=== PATIENT | male | born 1945 | race Caucasian/White ===

== ENCOUNTER 2016-06-01 14:20 | Inpatient (IN) | payer MEDICARE, MEDICAID ==
[~2016-06-01] VITALS: Ht 175.3 cm; Wt 80.1 kg
--- NOTE | 2016-06-01 14:45 | NUR ---
INTAKE WATER GIVEN TO PT. TO DRINK.
[2016-06-01] MEDS ORDERED: No current meds (14:47)
--- NOTE | 2016-06-01 14:49 | ERPDOC ---
Departure Disposition Decision Date: Jun 01, 2016 Disposition Decision Time: 19:00 (GONZALEZ MARINELLI APRN) Disposition: [address] [facility] Impression Impression (GONZALEZ MARINELLI APRN) Impression: Primary Impression: Dementia Dementia type: unspecified type Dementia behavioral disturbance: without behavioral disturbance Qualified Codes: F03.90 - Unspecified dementia without behavioral disturbance Severity: Moderate (GONZALEZ MARINELLI APRN) Condition: Stable Seen By: Mid-level only (GONZALEZ MARINELLI APRN) Problems/Meds/Labs Reviewed?: Yes Medications reviewed and manag: Yes (GONZALEZ MARINELLI APRN) Follow up care ordered?: Yes Mental Status: Alert (GONZALEZ MARINELLI APRN) Scripts Quetiapine Fumarate (Quetiapine Fumarate) 100 Mg Tablet 100 MG PO 08,13 for Agitation for 30 Days, #60 TAB Prov: BRYANT MATHEW MD 06/14/16 Quetiapine Fumarate (Seroquel) 200 Mg Tablet 200 MG PO HS for Agitation for 30 Days, #30 TAB Prov: BRYANT MATHEW MD 06/14/16 Lorazepam (Ativan) 1 Mg Tablet 1 MG PO HS for Insomnia for 30 Days, #30 TAB Prov: BRYANT MATHEW MD 06/14/16 Lisinopril/Hydrochlorothiazide (Lisinopril-Hctz 10-12.5 mg Tab) 1 Each Tablet 1 TAB PO DAILY, #30 TAB Prov: MADHAVI TOLLIVER DRY CHAIN WORKER 06/14/16 Tamsulosin HCl (Tamsulosin HCl) 0.4 Mg Cap.er.24h 0.4 MG PO HS, #30 CAP Prov: MADHAVI TOLLIVER APRN 06/14/16 HPI - Psychosocial General Chief Complaint: Psychiatric Problems Stated Complaint: PHYSC EVAL Time Seen by MD: 14:29 Source: patient Exam Limitations: no limitations (GONZALEZ MARINELLI APRN) Time Seen by MD: 11:01 (ОЛЬГА TADEO DO) HPI - Psychosocial Initial Comments He is brought to the ER today by [facility] officer and dropped off. The officer left as soon as he dropped him off and so we are unable to get a further history from him. Marbin has a history of dementia and has recently at some point been admitted to [facility] behavioral unit. He had been discharged and was supposed to have a hearing today for guardianship but he did not show up. He does have a brother in [place] who is his DPOA but Marbin does not always get along with him. Marbin is cooperative for the most part but does not answer all questions. He reports that he wants to get back to [place]. He does know he is in [place]. He does state that he slept in a place on a wooden bench the other night with his friend named Boaz. He states that they were trying to get out of the cold and the rain. Has slept on a rug that he has to keep warm. He has been in touch with Adult Protective Services who are trying to get him a guardianship here in [place] but he missed his hearing this morning at 10 am. The APS worker is concerned for his safety due to his trouble with memory. He had been discharged to a [place] when he left [facility] but stayed one night and then left. He has been taken to homeless shelters but does not stay. He does tell me he was in a basement one evening and they were putting people to bed in cots and would not allow him to do what he wanted so he left. He does deny any thoughts of wanting to harm himself or anyone else at this time. Occurred At: home Onset: Gradual Duration: other (unknown) Severity: moderate Associated Symptoms: DENIES: anxiety, impaired concentration, ingestion, injury , insomnia, suicidal ideation Hx of Similar Symptoms: Yes (NOLD,GONZALEZ N DRY CHAIN WORKER) Allergies: Coded Allergies: No Known Allergies (Unverified , 06/15/16) Past History Unable to Obtain PMH Due to: clinical condition, dementia (NOLD,GONZALEZ N DRY CHAIN WORKER) Past Medical History Psychological: dementia (NOLD,GONZALEZ N DRY CHAIN WORKER) Review of Systems Constitutional Constitutional: DENIES: appetite decrease, chills, dizziness, fatigue, fever, weakness (NOLD,GONZALEZ N DRY CHAIN WORKER) Eyes Vision: DENIES: blurring, double vision (NOLD,GONZALEZ N DRY CHAIN WORKER) ENMT Ears: DENIES: drainage, pain Sinuses: DENIES: congestion, rhinorrhea Mouth/Throat: DENIES: painful swallowing, scratchy throat, sore throat (NOLD, GONZALEZ N DRY CHAIN WORKER) Cardiovascular Cardiac: DENIES: chest pain, orthopnea Rhythm/Rate: DENIES: irregular beat, palpitations (NOLD,GONZALEZ N DRY CHAIN WORKER) Pulmonary Respiratory: DENIES: cough, dyspnea, sputum, tachypnea (NOLD,GONZALEZ N DRY CHAIN WORKER) GI Upper Abdomen: DENIES: nausea, pain, vomiting Lower Abdomen: DENIES: constipation, diarrhea, pain (NOLD,GONZALEZ N DRY CHAIN WORKER) Neurological General: DENIES: headache, numbness, tingling, weakness (NOLD,GONZALEZ N DRY CHAIN WORKER) Psychiatric Psychiatric: nervousness (NOLD,GONZALEZ N DRY CHAIN WORKER) Physical Exam General General Nourishment: well nourished, well developed, appears stated age, no acute distress, adult General Body Habitus: well groomed (NOLD,GONZALEZ N DRY CHAIN WORKER) Vitals and Pain Weight: Kilograms: Height (feet): Height (inches): Triage Pain Scale: (NOPAIGE,GONZALEZ N DRY CHAIN WORKER) RN VS reviewed by Provider: Yes (NOPAIGE,GONZALEZ N DRY CHAIN WORKER) Normal Exams: Head: Normocephalic w/o trauma Eyes: Pupils are PERRLA w/ EOMI, No scleral icterus, irritation, or foreign bodies noted ENMT: No facial trauma, nasal exudates, pharyngeal erythema, or exudates are noted Neck: Full range of motion, without adenopathy, JVD, bruits or thyromegaly Chest/Resp: Clear all bolanos, with good airflow, and symmetry bilaterally CV: Regular rate and rhythm, without murmur or gallop, Pulses 2+ all extremities, capillary refill, <2 seconds all ext., no pedal edema noted Abdomen: Bowel sounds positive, soft, non-tender, non-distended, no hepatosplenomegaly, masses or bruits noted Lymphatic: No lymphadenopathy, or lymphedema noted Integumentary: No rashes, hives, or bruising noted Neurologic: Patient is alert, and oriented, cranial nerves, motor/sensory/ cerebellar, exams w/o gross deficits, to observation Psychiatric: Patient exhibits, appropriate attention, emotion and affect (NOLD,GONZALEZ N DRY CHAIN WORKER) Differential Diagnoses Considering: Anxiety, Bipolar, Dementia, Depression, Hallucinations, Hypoglycemia, Alcohol Intoxication, Suicidal Ideation (NOLD,GONZALEZ N DRY CHAIN WORKER) Progress Results/Orders Orders Procedure Category Date Status Time Drug Screen LAB 06/01/16 Complete Urine-Test At [facility] 17:01 Cbc W/Auto LAB 06/01/16 Complete Diff-Reflex Manual Bmp - Basic Metabolic LAB 06/01/16 Complete Panel UA, LAB 06/01/16 Complete Dip&Micro(Complete) & 17:17 Tsh - Thyroid Stim LAB 06/01/16 Complete Hormone Cephalexin Capsule PHA 06/01/16 Complete (Keflex) 17:45 Urine Culture JAYA 06/01/16 Complete 17:53 Normal Saline (Normal PHA 06/01/16 Complete Saline Iv) 19:00 EKG EKG 06/01/16 Taken () Lab Results Laboratory Tests Test 06/01/16 17:17 06/01/16 17:28 06/01/16 18:56 Urine Collection Type Cleancatch-midstream Urine Color Yellow Urine Turbidity Cloudy Urine pH 6.0 Urine Specific Frederic 1.020 Urine Protein 2+ Urine Glucose (UA) Negative Urine Ketones Negative Urine Blood 3+ Urine Nitrite Positive Urine Bilirubin Negative Urine Urobilinogen 0.2EU/DL Urine Leukocyte Esterase 1+ Urine RBC 10-20/HPF Urine WBC 50-200/HPF Urine WBC Clumps Few Urine Squamous Epithelial Cells None seen Urine Bacteria 2+ Urine Culture Indicated Cult reflexed &setup Urine Opiates Screen NegativeNG/ML Urine Oxycodone Screen NegativeNG/ML Urine Methadone Screen NegativeNG/ML Urine Propoxyphene Screen NegativeNG/ML Urine Barbiturates Screen NegativeNG/ML Urine Tricyclic Antidepressants NegativeNG/ML Urine Phencyclidine Screen NegativeNG/ML Urine Amphetamines Screen NegativeNG/ML Urine Methamphetamines Screen NegativeNG/ML Urine Benzodiazepines Screen NegativeNG/ML Urine Cocaine Screen NegativeNG/ML Urine Cannabinoids Screen NegativeNG/ML White Blood Count 8.4T/MM3 Red Blood Count 4.62M/MM3 Hemoglobin 13.2GM/DL Hematocrit 40.5% Mean Corpuscular Volume 87.7UM3 Mean Corpuscular Hemoglobin 28.6UUG Mean Corpuscular Hemoglobin Concent 32.6GM/DL RDW Standard Deviation 44.9FL Platelet Count 212T/MM3 Mean Platelet Volume 9.0UM3 Immature Granulocyte % (Auto) 0.1% Neutrophils (%) (Auto) 65.1% Lymphocytes (%) (Auto) 25.4% Monocytes (%) (Auto) 7.4% Eosinophils (%) (Auto) 1.5% Basophils (%) (Auto) 0.5% Absolute Immature Granulocyte (auto 0.01T/MM3 Absolute Neutrophils (auto) 5.5T/MM3 Absolute Lymphocytes (auto) 2.1T/MM3 Absolute Monocytes (auto) 0.6T/MM3 Absolute Eosinophils (auto) 0.1T/MM3 Absolute Basophils (auto) 0.0T/MM3 Turbidity < 20 Sodium Level 143MEQ/L Potassium Level 4.3MEQ/L Chloride Level 104MEQ/L Carbon Dioxide Level 26MEQ/L Anion Gap 13MEQ/L Blood Urea Nitrogen 37.0MG/DL Creatinine 2.3MG/DL Glomerular Filtration Rate Calc 28 BUN/Creatinine Ratio 16RATIO Glucose Level 127MG/DL Hemoglobin A1c 5.6% Calculated Osmolality 286MOSM/KG Calcium Level 9.4MG/DL Icterus Index < 2 Folate 13.4NG/ML Thyroid Stimulating Hormone (TSH) 1.23MIU/L Chemistry Specimen Hemolysis < 15 Lab Scanned Report REFERENCE [id number] () Medications Current ED Medications Cephalexin HCl 500 mg 500 mg O ONCE PO Last administered on 06/01/16 17:46; Start 06/01/16 at 17:45; Stop 06/01/16 at 17:46; Status DC Sodium Chloride (Normal Saline IV) 1,000 ml @ 1,000 mls/hr Q1H ONCE IV ; Start 06/01/16 at 19:00; Stop 06/01/16 at 19:03; Status DC Haloperidol (Haldol) 0.5 mg Q6H PRN PO EXTREME AGITATION; Start 06/01/16 at 21: 40; Stop 06/15/16 at 10:10; Status DC Lorazepam (Ativan) 0.5 mg Q6H PRN PO EXTREME AGITATION Last administered on 08:47; Start 06/01/16 at 21:40; Stop 06/15/16 at 10:10; Status DC Lorazepam (Ativan) 0.5 mg Q6H PRN IM EXTREME AGITATION Last administered on 06/03 09:49; Start 06/01/16 at 21:40; Stop 06/15/16 at 10:10; Status DC Haloperidol Lactate (Haldol 5 Mg/ml Inj) 0.5 mg Q6H PRN IM EXTREME AGITATION Last administered on 06/03/16 09:49; Start 06/01/16 at 21:40; Stop 06/15/16 at 10 :10; Status DC Lorazepam (Ativan Intensol) 0.5 mg Q6H PRN SL Last administered on 06/02/16 20 :02; Start 06/01/16 at 21:40; Stop 06/15/16 at 10:10; Status DC Haloperidol (Haldol Liquid) 0.5 mg Q6H PRN PO Last administered on 06/08/16 20:10; Start 06/01/16 at 21:40; Stop 06/15/16 at 10:10; Status DC () Progress Progress 1530- Camille BRUSHER HAND and [employer] screener are in room with patient for evaluation of acceptance to [facility] unit. 1809- BUN-37 and creatinine is 2.3. No old labs to compare baseline creatinine to. U/A is nitrite positive with 1+ LE, 50-200 WBC and 2+ bacteria. Spoke with [facility] RN about elevated creatinine. She did speak with the Psychiatrist. He would prefer to have patient admitted to medical unit for fluids to monitor the creatinine and hydrate patient. Spoke with Dr Roa. He was able to obtain via [facility] lab results and his creatinine on 04/14/16 was 2.4. Value in December of 2015 was 2.23. BUN runs between 40-56 from old labs. No need to admit medically for clearance. [facility] will take the admission at this time. (GONZALEZ MARINELLI APRN) GONZALEZ MARINELLI APRN Jun 01, 2016 14:49 JUNE,ОЛЬГА Drake DO Jun 18, 2016 18:06
--- NOTE | 2016-06-01 15:00 | NUR ---
COLORER HIDES AND SKINS DELORES THE COLORER HIDES AND SKINS IN THE ROOM WITH PATIENT.
--- NOTE | 2016-06-01 15:20 | NUR ---
SOCIAL WORK LOW, CONTENT ADMINISTRATOR IN TO SEE PATIENT.
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
--- NOTE | 2016-06-01 17:22 | NUR ---
POLICE ARRIVED PATIENT STANDING IN ROOM, YELLING, COMING AT THIS NURSE. POLICE ARRIVED AND FORCED PATIENT BACK TO BED.
[2016-06-01 17:35] LABS: BLOOD, URINE 3+ (NEGATIVE); COLOR,URINE YELLOW (YELLOW); LEUKOCYTE ESTERASE ,URINE 1+ (NEGATIVE); NITRITE,URINE POSITIVE (NEGATIVE); UROBILINOGEN,URINE 0.2 EU/DL (NORMAL)
[2016-06-01 17:36] LABS: BASOPHILS % (AUTO) 0.5 % (0-2); EOSINOPHILS # (AUTO) 0.1 T/MM3 (0-0.5); EOSINOPHILS % (AUTO) 1.5 % (0-4); HCT - HEMATOCRIT 40.5 % (41-53); HGB - HEMOGLOBIN 13.2 GM/DL (13.5-17.5); IMMATURE GRANULOCYTE # (AUTO) 0.01 T/MM3 (0.00-0.03); IMMATURE GRANULOCYTE % (AUTO) 0.1 % (0.0-0.5); LYMPHOCYTES # (AUTO) 2.1 T/MM3 (1-4.8); LYMPHOCYTES % (AUTO) 25.4 % (23-45); MEAN CORPUSCULAR HGB 28.6 UUG (26-34); MEAN CORPUSCULAR HGB CONC(MCHC 32.6 GM/DL (31-37); MEAN CORPUSCULAR VOLUME 87.7 UM3 (80-100); MONOCYTES # (AUTO) 0.6 T/MM3 (0-0.8); MONOCYTES % (AUTO) 7.4 % (0-9.0); NEUTROPHILS #(AUTO)-ABSOLUTE 5.5 T/MM3 (1.8-7.7); NEUTROPHILS % (AUTO) 65.1 % (33-66); RED BLOOD COUNT 4.62 M/MM3 (4.50-5.90); WBC - WHITE BLOOD COUNT 8.4 T/MM3 (4.5-11.0)
[2016-06-01 17:42] LABS: ANION GAP 13 MEQ/L (5-15); BUN/CREATININE RATIO 16 RATIO (6-26); CALCIUM 9.4 MG/DL (8.4-10.2); CHLORIDE 104 MEQ/L (98-107); CO2 - CARBON DIOXIDE 26 MEQ/L (22-30); CREATININE 2.3 MG/DL (0.8-1.5); GLOMERULAR FILTRATION RATE 28; GLUCOSE 127 MG/DL (75-110); POTASSIUM 4.3 MEQ/L (3.6-5); SODIUM 143 MEQ/L (134-144)
[2016-06-01] MEDS ORDERED: CEPHALEXIN 500 MG CAPSULE PO ONE (17:45)
[2016-06-01 17:51] LABS: WBC,URINE 50-200 /HPF (0-5)
[2016-06-01 17:52] LABS: SQUAMOUS EPITHELIAL CELL,UR NONE SEEN; WBC CLUMPS,URINE FEW
[2016-06-01 17:53] LABS: BACTERIA,URINE 2+ (NEGATIVE)
[2016-06-01 17:54] LABS: AMPHETAMINE SCREEN,URINE NEGATIVE; BARBITURATE SCREEN,URINE NEGATIVE; BENZODIAZEPINES SCREEN,URINE NEGATIVE; CANNABINOID SCREEN,URINE NEGATIVE; COCAINE SCREEN,URINE NEGATIVE; METHADONE SCREEN, URINE NEGATIVE; METHAMPHETAMINE SCREEN, URINE NEGATIVE; OPIATE SCREEN,URINE NEGATIVE; PHENCYCLIDINE SCREEN,URINE NEGATIVE; TRICYCLIC ANTIDEPRESSANT,URINE NEGATIVE
--- NOTE | 2016-06-01 18:38 | NUR ---
STATUS UPDATE AWAITING DECISION FROM PSYCH AND HOSPITALIST TO WHERE PATIENT WILL BE ADMITTED.
[2016-06-01] MEDS ORDERED: NORMAL SALINE 1,000 ML IV ONE (19:00)
--- NOTE | 2016-06-01 19:59 | NUR ---
STATUS UPDATE PATIENT SITTING QUIETLY ON BED WATCHING TV. NO CONCERNS VOICED.
--- NOTE | 2016-06-01 21:29 | NUR ---
REPORT REPORT CALLED TO MELISSA HARDY, [facility].
--- NOTE | 2016-06-01 21:30 | NUR ---
CLOTHING PT'S CLOTHING REMOVED AND PLACED IN PERSONAL BELONGING BAGS.
[2016-06-01] MEDS ORDERED: HALOPERIDOL 0.5 MG TABLET PO PRN (21:40)
[2016-06-01] MEDS ORDERED: LORAZEPAM 2 MG/ML INJECTION IM PRN (21:40)
[2016-06-01] MEDS ORDERED: HALOPERIDOL 5 MG/ML INJECTION IM PRN (21:40)
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
--- NOTE | 2016-06-01 21:45 | NUR ---
DEPART ED/ADMIT TO [facility] PT IS TAKEN TO [facility] IN [place] UNDERWEAR AND SOCKS, PT REUFSED TO PLACED GOWN ON. PT HAS HIS WALLET IN HIS UNDERWEAR ALONG WITH AN EXTRA T-SHIRT. PT HAS NO OTHER PERSONAL BELONGINGS ON HIM AND IS PATTED DOWN/SECURE. PT IS TAKEN PER WHEELCHAIR TO [facility] ALONG WITH WAX BALL KNOCK OUT WORKER FOR AN ESCORT. PT TAKES 3 PERSONAL BELONGING BAGS WHICH INCLUDED 2 PAIR OF JEANS WITH LEATHER TYPE BELTS REMOVED BY RN, 2 SHIRTS, SHOES, A DENTURE CUP WITH LOOSE CHANGE. PT ALSO HAS REUSABLE GROCERY TYPE BAG THAT DAY SHIFT HAD PLACED IN THE GARAGE/FILLED WITH PT BELONGINGS. ALL 4 BELONGING BAGS GIVEN TO [facility] STAFF ON ADMISSION OF PT. PT SHOWS NO SIGNS OF DISTRESS WHEN RELEASED TO STAFF AND HAS NO PHYSICAL OR MENTAL COMPLAINTS AT THIS TIME.
--- OUTSIDE RECORDS SUMMARY | 2016-06-01 22:21 | XMS REPORT | Continuity of Care Document ---
Author Author [facility] Address Unknown Phone Unavailable Allergies Medications Problems Date Dx Coded Attending Type Code Diagnosis Diagnosed By 04/15/2016 F F02.81 Dementia in other diseases classified elsewhere with behavioral disturbance Nuris Posey 04/15/2016 F F20.9 Schizophrenia, unspecified Alexandra Bass 04/15/2016 F Z59.0 Homelessness Alexandra Bass 04/22/2016 F F02.81 Dementia in other diseases classified elsewhere with behavioral disturbance Alexandra Bass 04/22/2016 F F20.9 Schizophrenia, unspecified Nuris Posey 04/22/2016 F Z59.0 Homelessness Nuris Posey 04/22/2016 F Z59.5 Extreme poverty Nuris Posey Procedures Code [place] [id number] PSYCHIATRIC SERVICE/THERAPY Nuris Posey 04/15/2016 Results Encounters ACCT No. Visit Date/Time Discharge Status Pt. Type Provider Facility Loc./Unit Complaint [id number] 04/15/2016 10:00:00 04/15/2016 23:59:59 CLS Outpatient
[2016-06-01] MEDS: LORAZEPAM INTENSOL 1mg/0.5ml ORAL SOLUTION SL PRN (22:23)
[2016-06-01] MEDS: HALOPERIDOL 1 MG/0.5 ML ORAL LIQUID PO PRN (22:23)
--- NOTE | 2016-06-01 22:25 | NUR ---
PRN Pt was increasingly anxious and agitated, resistive with cares, continuously accusing staff of stealing his belongings, demanding to have them back in his room. Explained the procedure of the unit to pt but he was not interested in listening. Pt was restless, not able to sit still, saying whoever stole from him, to go shoot them. "Shoot them if they are stealing from me!". Attempts to redirect by speaking calmly and face to face with pt difficult. Pt very labile. PRN Ativan/Haldol 0.5 Intensol/liquid given in apple juice. Pt drank all of the juice. Will continue to monitor
[2016-06-01] MEDS ORDERED: PRN ORDERS MC (22:45)
[2016-06-01 22:54] VITALS: BP 150/100; PULSE 77; RESP 18; TEMP 99.1; O2SAT 95
[2016-06-01 23:03] VITALS: PULSE 77; RESP 18
--- NOTE | 2016-06-02 00:05 | NUR ---
Bed time Pt laid down in his bed and was asleep by midnight. Bed rails up x 2 and alarm on. Will continue to monitor
[2016-06-02 00:09] VITALS: Ht 175.3 cm; Wt 80.1 kg
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
--- NOTE | 2016-06-02 04:49 | NUR ---
Chart Check 24 hour chart check completed
--- NOTE | 2016-06-02 05:59 | NUR ---
Summary Pt has been sleeping since midnight and has not displayed any further signs of anxiety, agitation or restlessness since receiving PRN at 2225. Pt received Ativan intensol 0.5mg and Haldol liquid 0.5mg. See PRN notes for details. Pt is alert to person. Up SBA and is able to ambulate on own without the use of devices. No further issues since previous notes. Currently sleeping. Bed rails up x 2 and alarm on. Will continue to monitor
--- NOTE | 2016-06-02 07:57 | NUR ---
SMOKING HISTORY Pt reports that he has not smoked in 20-30 years. RT consult not needed.
[2016-06-02 08:00] VITALS: BP 125/66; PULSE 76; RESP 16; TEMP 98.8; O2SAT 95
--- NOTE | 2016-06-02 10:00 | NUR ---
SAND CONDITIONER--DCF contact Per Hanna, DCF worker, arrived on unit to serve pt. his notice about upcoming probate hearing in [facility] regarding guardianship. Per explained about nature of the hearing and pt. seemed to agree with the concept of having someone to help him manage some of his affairs.
--- NOTE | 2016-06-02 10:25 | NUR ---
Pt awoke this morning at 1015 this morning
[2016-06-02 10:26] VITALS: PULSE 68; RESP 12; O2SAT 98
[2016-06-02] MEDS: HALOPERIDOL 1 MG/0.5 ML ORAL LIQUID PO PRN ×2 (10:34→20:02)
[2016-06-02] MEDS: LORAZEPAM INTENSOL 1mg/0.5ml ORAL SOLUTION SL PRN ×2 (10:34→20:02)
--- NOTE | 2016-06-02 11:09 | NUR ---
PRN Pt received PRN Haldol 0.5mg and Ativan 0.5mg liquid @ 1035, for agitation. Pt had a visitor in to speak to him about guardianship. Pt tolerated well and was pleasant during the transaction.
--- NOTE | 2016-06-02 11:47 | HPPDOC ---
MADHAVI TOLLIVER MILLING MACHINE SET UP OPERATOR 06/02/16 0816: HPI - Adult Date DATE: 06/02/16 TIME: 08:13 General Chief Complaint: Behavioral issues History of Present Illness Marbin Carey is a 71 y/o male admitted to [facility] on 06/01/16 after a [employer] Hearing Office dropped him off at the [facility]. He was recently hospitalized at [facility] for psychiatric problems from 12/25/15-05/07/16. Discharge dx included: CKD stage 3 (baseline cr 2-2.3, up to 2.6), hx bilatral hydronephrosis that improved post TURP during hospitalization; uncontrolled HTN, Rx lisinopril/HCTZ - Had been on Norvasc but this was DC'd d/t pedal edema - Clonidine PRN. 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 He was dc'd to a [place] but the patient only stayed there briefly. He has had problems functioning and has had impaired judgment, disorientation and mood swings. He's been skipping meals. He's only oriented to person. He recently has been homeless, going from [place] to homeless correction, to other places. The patient is a poor historian, and unable to recount any PMH or provide reliable HPI. Past Medical History Past Medical History Patient's Medical History: (1) Schizophrenia (2) Dementia (3) HTN (hypertension) (4) CKD (chronic kidney disease), stage III Permanent Comment: From 12/2015 through 03/2016 his creatinine has ranged from 2 -2.5 Last Edited By: Madhavi Tolliver on Jun 02, 2016 08:29 (5) Urinary incontinence (6) Normocytic anemia (7) BPH (benign prostatic hypertrophy) Surgical History Patient's Surgical History: Cystoscopy with Transurethral prostatectomy 12/30/15 (Dr. Lee) Skin graft Left arm (1967) Dental extractions Current Medications Home Meds Reported Medications [No current meds] No Conflict Check 06/01/16 Allergies: Coded Allergies: No Known Allergies (Unverified , 06/01/16) Family History Family History: Unobtainable Social History Smoking Status: Former smoker (states he quit 30 years ago) Substance Use Type: former substance user (per sister - unknown type) Alcohol Intake: occasionally Housing: homeless (hx of homelessness) Current Occupational Status: unemployed Advance Directives: Yes DPOA for Healthcare Only (Eduardo Murcia Broth in law/DPOA) Review of Systems Unable to Obtain ROS Due to: dementia Comments Only positive ROS is that he "hasn't been well" but unable to explain. Denied any specific symptoms, as documented below. Constitutional: DENIES: dizziness, fever Eyes Vision: DENIES: vision changes ENMT Sinuses: NOT FOUND: congestion, rhinorrhea Mouth/Throat: DENIES: sore throat Cardiovascular DENIES: chest pain Vascular: DENIES: pedal edema Pulmonary Respiratory: DENIES: cough GI Upper Abdomen: DENIES: pain, vomiting Lower Abdomen: DENIES: diarrhea General: DENIES: dysuria Musculoskeletal Lumbar: DENIES: pain Integumentary Skin: rash (per notes from [facility] - had a rash in Nov that was treated with steroid cream) Neurological General: memory disturbances, DENIES: syncope, weakness Psychiatric Psychiatric: memory impairment, see HPI Hematologic/Lymphatic DENIES: anemia Allergic/Immunological DENIES: frequent infections All Other Systems All Other Systems: Reviewed (remainder of 10-point ROS Neg.) Physical Exam General General Nourishment: well nourished, well developed General Body Habitus: disheveled Vital Signs Vital Signs Date Time Temp Pulse Resp B/P Pulse Ox O2 Delivery O2 Flow Rate FiO2 06/01/16 23:03 77 18 06/01/16 22:54 99.1 150/100 95 Room Air Height (Feet): 5 Height (Inches): 9.00 Eyes Brief: FOUND: PERRL, NOT FOUND: scleral icterus ENMT Brief: FOUND: mucosa moist, NOT FOUND: normal dentition (edentulous), pharnyx erythema Neck Brief: NOT FOUND: adenopathy, nuchal rigidity Respiratory Auscultation: FOUND: normal, NOT FOUND: rales, rhonchi, wheezes Cardiovascular Auscultation: FOUND: S1, S2, regular Peripheral Pulses: 2+: Dorasalis Pedis (L), Dorsalis Pedis (R), Posterior Tibial (L), Posterior Tibial (R), Radial (L), Radial (R) Edema: 0: Anasarca, Arm (L), Arm (R), Face, Leg (L), Leg (R) Abdomen Inspection: NOT FOUND: distention Palpation: FOUND: soft, NOT FOUND: McBurney's point tender, Arzate's sign, involuntary guarding, rebound, tender, voluntary guarding Auscultation: FOUND: normo active Lymphatic (brief) Lymphatic Brief: NOT FOUND: adenopathy Integumentary (brief) Integumentary Brief: FOUND: dry, pink, warm Integumentary General: FOUND: dry, warm Color: FOUND: pink Neurologic (brief) Neurological Brief: FOUND: cranial 2-12 intact (grossly but has difficulty following commands at times), motor (GRECO) Neurologic GCS Eye Opening: (4)Spontaneous GCS Verbal: (4)Confused GCS Motor: (6)Obeys Commands RN Documented GCS Total: 14 Psychiatric (brief) FOUND: alert, attentive, normal affect, oriented Laboratory Laboratory Tests Test 06/01/16 17:17 06/01/16 17:28 06/01/16 18:56 Urine Collection Type Cleancatch-midstream Urine Color Yellow Urine Turbidity Cloudy Urine pH 6.0 Urine Specific [place] 1.020 Urine Protein 2+ Urine Glucose (UA) Negative Urine Ketones Negative Urine Blood 3+ Urine Nitrite Positive Urine Bilirubin Negative Urine Urobilinogen 0.2EU/DL Urine Leukocyte Esterase 1+ Urine RBC 10-20/HPF Urine WBC 50-200/HPF Urine WBC Clumps Few Urine Squamous Epithelial Cells None seen Urine Bacteria 2+ Urine Culture Indicated Cult reflexed &setup Urine Opiates Screen NegativeNG/ML Urine Oxycodone Screen NegativeNG/ML Urine Methadone Screen NegativeNG/ML Urine Propoxyphene Screen NegativeNG/ML Urine Barbiturates Screen NegativeNG/ML Urine Tricyclic Antidepressants NegativeNG/ML Urine Phencyclidine Screen NegativeNG/ML Urine Amphetamines Screen NegativeNG/ML Urine Methamphetamines Screen NegativeNG/ML Urine Benzodiazepines Screen NegativeNG/ML Urine Cocaine Screen NegativeNG/ML Urine Cannabinoids Screen NegativeNG/ML White Blood Count 8.4T/MM3 Red Blood Count 4.62M/MM3 Hemoglobin 13.2GM/DL Hematocrit 40.5% Mean Corpuscular Volume 87.7UM3 Mean Corpuscular Hemoglobin 28.6UUG Mean Corpuscular Hemoglobin Concent 32.6GM/DL RDW Standard Deviation 44.9FL Platelet Count 212T/MM3 Mean Platelet Volume 9.0UM3 Immature Granulocyte % (Auto) 0.1% Neutrophils (%) (Auto) 65.1% Lymphocytes (%) (Auto) 25.4% Monocytes (%) (Auto) 7.4% Eosinophils (%) (Auto) 1.5% Basophils (%) (Auto) 0.5% Absolute Immature Granulocyte (auto 0.01T/MM3 Absolute Neutrophils (auto) 5.5T/MM3 Absolute Lymphocytes (auto) 2.1T/MM3 Absolute Monocytes (auto) 0.6T/MM3 Absolute Eosinophils (auto) 0.1T/MM3 Absolute Basophils (auto) 0.0T/MM3 Turbidity < 20 Sodium Level 143MEQ/L Potassium Level 4.3MEQ/L Chloride Level 104MEQ/L Carbon Dioxide Level 26MEQ/L Anion Gap 13MEQ/L Blood Urea Nitrogen 37.0MG/DL Creatinine 2.3MG/DL Glomerular Filtration Rate Calc 28 BUN/Creatinine Ratio 16RATIO Glucose Level 127MG/DL Hemoglobin A1c 5.6% Calculated Osmolality 286MOSM/KG Calcium Level 9.4MG/DL Icterus Index < 2 Folate 13.4NG/ML Thyroid Stimulating Hormone (TSH) 1.23MIU/L Chemistry Specimen Hemolysis < 15 Lab Scanned Report REFERENCE [id number] Assessment & Plan Problems: (1) UTI (urinary tract infection) Status: Acute (2) Dementia Status: Chronic Qualifiers: Dementia type: unspecified type Dementia behavioral disturbance: without behavioral disturbance Qualified Codes: F03.90 - Unspecified dementia without behavioral disturbance (3) Schizophrenia (4) HTN (hypertension) Status: Chronic (5) Urinary incontinence Status: Chronic Qualifiers: Urinary Incontinence type: unspecified incontinence Qualified Codes: R32 - Unspecified urinary incontinence (6) CKD (chronic kidney disease), stage III Status: Chronic (7) Normocytic anemia Status: Chronic (8) BPH (benign prostatic hypertrophy) Status: Chronic Plan/Intensity of Service Agree with admission to [facility]. UTI - Keflex started. Early growth noted on culture. [facility] records reviewed Cr ranged from 2-2.6 while hospitalized. He underwent TURP for b/l hydronephrosis. DC'd with these medications: Lisinopril/HCTZ 20/25, Flomax, Seroquel 50 mg BID and 100 mg HS, Aricept 10 mg HS Resume Lisinopril/HCTZ, Flomax. Consider Clonidine PRN or BB if BP does not show good improvement. CKD - recheck BMP in am. Schizophrenia/dementia - per attending. Code Status Full Code, unverified Hospital Course Summary Disclaimer The hospital course summary below is not to be considered part of the above Progress Note. Hospital Course Summary 06/02/16 Agree with admission to [facility]. UTI - Keflex started. Early growth noted on culture. [facility] records reviewed Cr ranged from 2-2.6 while hospitalized. He underwent TURP for b/l hydronephrosis. DC'd with these medications: Lisinopril/HCTZ 20/25, Flomax, Seroquel 50 mg BID and 100 mg HS, Aricept 10 mg HS Resume Lisinopril/HCTZ, Flomax. Consider Clonidine PRN or BB if BP does not show good improvement. CKD - recheck BMP in am. Schizophrenia/dementia - per attending. ALEX BARDALES MD 06/02/16 1424: Past Medical History Current Medications Home Meds Reported Medications [No current meds] No Conflict Check 06/01/16 Allergies: Coded Allergies: No Known Allergies (Unverified , 06/01/16) Assessment & Plan Problems: (1) UTI (urinary tract infection) Status: Acute (2) Dementia Status: Chronic Qualifiers: Dementia type: unspecified type Dementia behavioral disturbance: without behavioral disturbance Qualified Codes: F03.90 - Unspecified dementia without behavioral disturbance (3) Schizophrenia (4) HTN (hypertension) Status: Chronic (5) Urinary incontinence Status: Chronic Qualifiers: Urinary Incontinence type: unspecified incontinence Qualified Codes: R32 - Unspecified urinary incontinence (6) CKD (chronic kidney disease), stage III Status: Chronic (7) Normocytic anemia Status: Chronic (8) BPH (benign prostatic hypertrophy) Status: Chronic Plan/Intensity of Service Have independently interviewed and examined pt. Chart reviewed. Case discussed with my MILLING MACHINE SET UP OPERATOR. Above care plan developed with my supervision; agree with above. Brought to ED last night by [facility] Officer. Pt has Hx of Schizophrenia and dementia - recently had [facility]. Was discharged to [place] for care, but apparently left. Reported that he has been in and out of homeless shelters. Not happy with the officer for bringing him here. Denies any specific medical problems. Breathing well without SOA, cough or congestion. No chest pain. No nausea or ab pain. Urinating well. Lab has been reviewed from outlying facilities - has CKD, creatinine at baseline. Lungs: clear, no distress CV: regular AB: soft nt/nd + BS MSE: awake alert Plan; Agree with admission to [facility] for further psychiatric treatment. Continue home medications. Cephalexin started for UTI - check on C/S. Encourage oral intake of fluids due to CKD. Monitor blood pressure. Provide safe supportive environment. Psychiatry to manage and adjust his psychoactive medications. Medically stable for [facility] floor activities. MADHAVI TOLLIVER APRN Jun 02, 2016 08:16 ALEX BARDALES MD Jun 02, 2016 14:24
--- NOTE | 2016-06-02 12:15 | NUR ---
PRN Follow up Pt has been calm and cooperative since receiving his PRN medications. Pt ate lunch and sat and watched the ducks and geese outside on the [place] while conversing with staff and other patients.
[2016-06-02 16:32] VITALS: BP 160/94; PULSE 79; RESP 16; TEMP 99; O2SAT 96
--- NOTE | 2016-06-02 16:50 | NUR ---
Slums Examination Pt. scored a 2 and states "this is bullshit" and "does this make your job happy?" Audit Screen Pt. scored a 2. Indicates a couple drinks "two weeks ago" but states "I don't drink."
--- NOTE | 2016-06-02 17:13 | NUR ---
Summary Pt was cooperative with assessment, and medications. Pt prefers to do as much on his own as possible. He Has not had any signs of aggression this shift and has been out to eat breakfast and lunch. At lunch he stayed out in the dining room to watch the birds on the [place] and stated how much he enjoyed the outdoors and nature. Pt received PRN ativan and Haldol earlier in the shift (see note) and is currently in bed sleeping with side rails up x2 and bed alarm activated.
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
[2016-06-02] MEDS: CEPHALEXIN 500 MG CAPSULE PO SCH (17:26)
--- NOTE | 2016-06-02 18:03 | NUR ---
Marbin ate 100% of his dinner and is currently in his room looking at his clothes. He took his antibiotic at dinner without problems.
[2016-06-02 20:00] VITALS: BP 152/75; PULSE 72; RESP 18; TEMP 98.9; O2SAT 96
--- NOTE | 2016-06-02 20:02 | NUR ---
prn given Pt is alert and oriented x1, pt demanding his belongings and to leave. Pt is upset that his suspender is locked up. Pt yelling at staff, pacing the dayroom, pt is tense and tone of voice is aggressive, pt did calm a little when a different staff member approached him, pt agreed to sit down in the recliner and have a snack of apple juice and applesauce, pt given 0.5mg Ativan and 0.5mg Haldol liquid in his apple juice, pt drank 100% of apple juice, pt is currently talking with another patient in the dayroom with staff present. will monitor pt.
[2016-06-02] MEDS: QUETIAPINE 25 MG TABLET PO SCH (20:21)
[2016-06-02] MEDS: TAMSULOSIN 0.4 MG CAPSULE PO SCH (20:21)
--- NOTE | 2016-06-02 21:02 | NUR ---
prn update Pt is currently in the dayroom, pt remains tense, but is sitting watching tv and smiled at staff when approached. Pt took his hs meds at 2100, pt then wants to know where his belongings are at and wants to go home. Pt reoriented that he needs to stay here for the night, that he has a UTI and needs to take antibiotics. Pt is in dayroom with 2 pairs of pants on, two shirts on, two hats on. will monitor pt.
--- NOTE | 2016-06-02 21:14 | GENHPPDOC ---
[facility] 06/02/16 Time of Service: 16:30 Start Time: 16:30 Stop Time: 17:20 >50% of this visit spent in counseling/coordination care. Chief Complaint: Disorganized behavior and confusion History of Present Illness Patient is a 71- year-old, male, with history of Schizophrenia and Major Neurocognitive disorder who was brought to the ER by the police after he was found wandering in [place]. He was noted to be confused and has disorganized speech with tangential thought process. While in the ER, he reportedly refused blood draw and the police had to be called before he agreed to it. He was seen to be alert, disoriented to place and time. He has several layers of clothing and looks dishevelled. Patient was seen to be upset about the police for bringing him to the hospital. He looks tensed and verbally aggressive. Patient was discharged from [facility] where he was for about 5 months between December 2015 to April 2016. Patient was said to have been discharged to [facility], but he was not there for a long time. He has been homeless for while and he become irritated when attempting to gather information from him. On admission to the unit last night he was given Haloperidol 0.5mg and Lorazepam 0.5mg and he also received the same medication earlier today. Patient's DPOA currently resides in [place] and he has he has guardianship hearing on June 15 2016. Reviewed patient's medication from his admission in [facility] which showed that he was on Lisinopril /HCTZ 20/25mg 1 daily, Seroquel 100mg 1 q bedtime, Seroquel 50mg 1 BID and Tamsulosin 0.4mg daily. He also had a head CT scan (12/25/15)during that hospitalization which showed mild atrophy of the brain with no acute abnormality. Patient's CBC was wnl, but BMP showed a BUN of 37 and Creatinine possibly due to history CKD. UA was positive for nitrite, bacteria and WBC. He has been stated on Keflex 500mg TID. Substance: There is report of patient's past history alcohol use disorder Past Psych: was in [facility] for about 5 months in 2015 to early 2016. Past Medical Hx: CKD, HTN, BPH Social Hx: He is homeless. Family: unable to obtain due to patient's confusion. Patient's strength : He continues to be physically able to ambulate without need for assistance. Psychosis: delusions, paranoia Dementia: memory impairment, poor executive function. Past Medical History Past Medical History Patient's Medical History: (1) Schizophrenia (2) Dementia (3) HTN (hypertension) (4) CKD (chronic kidney disease), stage III Permanent Comment: From 12/2015 through 03/2016 his creatinine has ranged from 2 -2.5 Last Edited By: Dayami Vela on Jun 02, 2016 08:29 (5) Urinary incontinence (6) Normocytic anemia (7) BPH (benign prostatic hypertrophy) Surgical History Patient's Surgical History: Cystoscopy with Transurethral prostatectomy 12/30/15 (Dr. Lee) Skin graft Left arm (1967) Dental extractions Current Medications Home Meds Reported Medications [No current meds] No Conflict Check 06/01/16 Allergies: Coded Allergies: No Known Allergies (Unverified , 06/01/16) Family History Family History: Unobtainable Vaccines Social History Smoking Status: Former smoker (states he quit 30 years ago) Substance Use Type: former substance user (per sister - unknown type) Alcohol Intake: occasionally Housing: homeless (hx of homelessness) Current Occupational Status: unemployed Advance Directives: Yes DPOA for Healthcare Only (Eduardo Murcia Broth in law/DPOA) Review of Systems Constitutional: DENIES: appetite decrease, insomnia Eyes General: DENIES: foreign body sensation Vision: DENIES: night blindness ENMT Hearing: DENIES: hearing loss Balance: DENIES: ataxia, falling to one side Cardiovascular DENIES: dyspnea on exertion Rhythm/Rate: DENIES: palpitations Vascular: DENIES: pedal edema Pulmonary Respiratory: DENIES: dyspnea, hyperventilation, tachypnea GI Upper Abdomen: DENIES: hematemesis, vomiting General: burning, polyuria Male: frequency Musculoskeletal General: DENIES: pain Integumentary Skin: DENIES: sores Neurological General: DENIES: ataxia, blackouts, headache Psychiatric Psychiatric: irritability, memory impairment Hematologic/Lymphatic DENIES: frequent nosebleeds Allergic/Immunological DENIES: hives Generations Exam Vitals Vital Signs Date Time Temp Pulse Resp B/P Pulse Ox O2 Delivery O2 Flow Rate FiO2 06/02/16 16:32 99.0 79 16 160/94 96 Room Air Patient refused. Height (Feet): 5 Height (Inches): 9.00 Mental Status Exam Muscle Strength/Tone: Normal Dressing: Casual Grooming: Disheveled Attitude: Uncooperative, Tense Motor Activity: Normal Eye Contact: Poor Speech: Other (incoherent) Rhythm: Paucity of Language Orientation: Disoriented to time, Disoriented to place, Disoriented to situation Mood: Irritable Affect: Exaggerated Rate of Thoughts: Delayed Thought Organization: Disorganized Associations: Loose-associations Abstract Reasoning: Impaired, concrete Computation: Poor Computation Thought Content: Delusions, Paranoia Perception/Psychotic: Psychotic Attention Span/Concentration: Inattentive Language: Naming Impaired Fund of Knowledge: Poor fund of knowledge Memory: Poor-immediate, Poor-recent, Poor-remote Suicidal Ideation: None Homicidal Ideation: None Insight: Poor Judgment: Poor Impulse Control: Poor Assessment and Plan (1) Schizophrenia Assessment: Admit patient to [facility] unit. Start Seroquel 25mg BID. Patient is also Keflex 500mg TID. (2) Major neurocognitive disorder (3) CKD (chronic kidney disease), stage III (4) BPH (benign prostatic hypertrophy) ELLIOT GRANGER MD Jun 02, 2016 20:54
--- NOTE | 2016-06-02 22:30 | NUR ---
bedtime Pt sleeping in recliner, agreed to go to bed at 2215, pt refused to change his clothes at this time. Pt went to sleep at 2230, pt is currently in bed with 2 bed rails up and bed alarm on. Pt did sleep 2 hours on dayshift.
[2016-06-03] MEDS: CEPHALEXIN 500 MG CAPSULE PO SCH ×4 (01:00→20:15)
--- NOTE | 2016-06-03 01:00 | NUR ---
pt sleeping Pt antibiotic held due to patient sleeping, will notify pharmacy in the am.
--- NOTE | 2016-06-03 02:32 | NUR ---
Chart Check 24 hour chart check completed
--- NOTE | 2016-06-03 06:40 | NUR ---
Summary: Patient was passed on to me at mid shift. He slept the whole night, with no disturbances. Patient is in bed with rails up x2 and bed alarm activated.
[2016-06-03 08:00] VITALS: BP 106/64; PULSE 78; RESP 20; TEMP 98.4; O2SAT 98
[2016-06-03] MEDS: QUETIAPINE 25 MG TABLET PO SCH (08:08)
[2016-06-03] MEDS: LISINOPRIL/HCTZ 20mg/25mg TABLET PO SCH (08:08)
[2016-06-03 09:07] LABS: ANION GAP 12 MEQ/L (5-15); BUN/CREATININE RATIO 14 RATIO (6-26); CALCIUM 9.8 MG/DL (8.4-10.2); CHLORIDE 106 MEQ/L (98-107); CO2 - CARBON DIOXIDE 26 MEQ/L (22-30); CREATININE 2.3 MG/DL (0.8-1.5); GLOMERULAR FILTRATION RATE 28; GLUCOSE 122 MG/DL (75-110); POTASSIUM 4.9 MEQ/L (3.6-5); SODIUM 144 MEQ/L (134-144)
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
--- NOTE | 2016-06-03 11:00 | NUR ---
PRN follow up Patient was more calmed, and able to redirect, he came to the dining room and ate his breakfast, he was listening to music afterwards. He did not appeared to be anxious any more, PRN medication was effective.
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
[2016-06-03 16:00] VITALS: BP 132/84; PULSE 71; RESP 18; TEMP 98.4; O2SAT 96
[2016-06-03 17:05] VITALS: BP 132/84; PULSE 71; RESP 18; TEMP 98.4; O2SAT 96
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
[2016-06-03] MEDS: TAMSULOSIN 0.4 MG CAPSULE PO SCH (20:14)
[2016-06-03] MEDS: QUETIAPINE 50 MG TABLET PO SCH (20:16)
[2016-06-03 22:19] VITALS: PULSE 78; RESP 20
--- NOTE | 2016-06-03 22:36 | NUR ---
status: Patient was up in day room at start of shift. Patient calm and reading a book. Physical assessment complete with no significant findings. Patient has been continent. He took his medications crushed in applesauce mixed with apple juice. Continues to be paranoid. Patient did have two belts on and this RN was able to obtain them. He is aware that he is not to have them in his room at night. Patient went to bed at 1030. Bed rails up x2 and bed alarm on. Will continue to monitor remainder of shift.
[2016-06-03 22:40] VITALS: BP 124/73; PULSE 71; RESP 16; TEMP 97.6; O2SAT 96
--- NOTE | 2016-06-03 23:41 | GENPN ---
[facility] Subjective Date DATE: 06/03/16 TIME: 23:30 Subjective/Severity of Illness Medications Current Medications Medications (Trade) Dose Ordered Sig/Tiff Start Time Stop Time Status Last Admin Dose Admin Miscellaneous Medication (May use PRN orders) 1 PRN PRN 06/01/16 22:45 Haloperidol (Haldol) 0.5 mg Q6H PRN 06/01/16 21:40 Lorazepam (Ativan) 0.5 mg Q6H PRN 06/01/16 21:40 Lorazepam (Ativan) 0.5 mg Q6H PRN 06/01/16 21:40 06/03/16 09:49 0.5 MG Haloperidol Lactate (Haldol 5 Mg/ml Inj) 0.5 mg Q6H PRN 06/01/16 21:40 06/03/16 09:49 0.5 MG Lorazepam (Ativan Intensol) 0.5 mg Q6H PRN 06/01/16 21:40 06/02/16 20:02 0.5 MG Haloperidol (Haldol Liquid) 0.5 mg Q6H PRN 06/01/16 21:40 06/02/16 20:02 0.5 MG Tamsulosin HCl (FLOMAX 0.4 mg) 0.4 mg HS 06/02/16 21:00 06/03/16 20:14 0.4 MG HCTZ/Lisinopril (Prinzide ) 1 tab DAILY 06/03/16 09:00 06/03/16 08:08 1 TAB Cephalexin HCl (Keflex) 500 mg Q8HR 06/02/16 17:00 06/03/16 20:15 500 MG Quetiapine Fumarate (Seroquel) 25 mg BID 06/02/16 21:00 06/03/16 18:50 DC 06/03/16 08:08 25 MG Quetiapine Fumarate (Seroquel) 50 mg BID 06/03/16 21:00 06/03/16 20:16 50 MG Subjective Patient seen, chart reviewed and vitals noted to be stable. He has history of Schizophrenia and Major Neurocognitive diagnosed in [facility] where he was between December 2015 to April 2016. Today he was said to have become agitated during blood draw and had to be given Haloperidol 0.5mg and Lorazepam 0.5mg IM. Patient continues to be suspicious, irritable isolative, dishevelled and appears to be socially withdrawn. Patient was started on Seroquel 25mg BID yesterday and he appears to have tolerated it. There is no acute or chronic EPS noted. Sleep: 8 hours PRN Lorazepam and Haloperidol 0.5mg IM Time of Service: 19:45 Start Time: 19:45 Stop Time: 20:00 Care >50% of this visit spent in counseling/coordination care. [facility] Exam Vitals Vital Signs Date Time Temp Pulse Resp B/P Pulse Ox O2 Delivery O2 Flow Rate FiO2 06/03/16 22:40 97.6 71 16 124/73 96 Room Air Physical examination performed by the hospitalist. Height (Feet): 5 Height (Inches): 9.00 Mental Status Exam Muscle Strength/Tone: Normal Dressing: Casual Grooming: Disheveled Attitude: Uncooperative, Tense Motor Activity: Agitation Eye Contact: Poor Volume: Soft Rhythm: Mumbled, Paucity of Language Orientation: Oriented to person Mood: Irritable, Anxious Affect: Exaggerated Rate of Thoughts: Delayed Thought Organization: Tangential, Perseverations Associations: Loose-associations, Illogical Abstract Reasoning: Impaired, concrete Computation: Poor Computation Thought Content: Delusions Perception/Psychotic: Psychotic Current Hallucinations: Auditory Attention Span/Concentration: Inattentive Language: Naming Impaired Fund of Knowledge: Poor fund of knowledge Memory: Poor-immediate, Poor-recent Suicidal Ideation: None Homicidal Ideation: None Insight: Poor Judgment: Poor Impulse Control: Poor Laboratory Tests Test 06/03/16 08:39 Turbidity < 20 Sodium Level 144MEQ/L Potassium Level 4.9MEQ/L Chloride Level 106MEQ/L Carbon Dioxide Level 26MEQ/L Anion Gap 12MEQ/L Blood Urea Nitrogen 33.0MG/DL Creatinine 2.3MG/DL Glomerular Filtration Rate Calc 28 BUN/Creatinine Ratio 14RATIO Glucose Level 122MG/DL Calculated Osmolality 285MOSM/KG Calcium Level 9.8MG/DL Icterus Index < 2 Triglycerides Level Pending Cholesterol Level Pending LDL Cholesterol, Calculated Pending VLDL Cholesterol Pending HDL Cholesterol Direct Pending Cholesterol/HDL Ratio Pending Chemistry Specimen Hemolysis < 15 Assessment and Plan (1) Schizophrenia Assessment: Admit patient to [facility] unit. Start Seroquel 25mg BID. Patient is also Keflex 500mg TID. 06/03/16: Increase Seroquel to 50mg BID: for psychosis (2) Major neurocognitive disorder (3) CKD (chronic kidney disease), stage III (4) BPH (benign prostatic hypertrophy) ELLIOT GRANGER MD Jun 03, 2016 23:37
--- NOTE | 2016-06-04 02:14 | NUR ---
Sleep note: Patient went to sleep at 2215 and continues sleeping. Will continue to monitor.
--- NOTE | 2016-06-04 04:37 | NUR ---
status: Patient handed off to Salvador TORRES who states she needs no further report, as she is familiar with him.
--- NOTE | 2016-06-04 07:00 | NUR ---
Summary Patient went to sleep at 2215, woke once during the night to use restroom. Continent of bladder and bowel. Patient is guarded and callahan with staff though cooperative. no prns given. patient is currently asleep in bed with the bed alarm on, rails upx2, and call light in reach.
--- NOTE | 2016-06-04 07:34 | NUR ---
Sleep Note Pt went to bed at 2215 and was awake at 0745 and to dining room for breakfast.
[2016-06-04 07:37] VITALS: BP 124/67; PULSE 70; RESP 16; TEMP 98.6; O2SAT 97
[2016-06-04] MEDS: LISINOPRIL/HCTZ 20mg/25mg TABLET PO SCH (07:45)
[2016-06-04] MEDS: QUETIAPINE 50 MG TABLET PO SCH ×2 (07:45→19:53)
[2016-06-04] MEDS: CEPHALEXIN 500 MG CAPSULE PO SCH (07:45)
--- NOTE | 2016-06-04 08:18 | NUR ---
Chart Check 24 hour chart check completed
--- NOTE | 2016-06-04 08:51 | NUR ---
Pt Status Pt will verbalize but at times mumbled. Oriented to person, denies pain, and medications taken well.
[2016-06-04] MEDS ORDERED: CIPROFLOXACIN 500 MG TABLET PO ONE (10:45)
--- NOTE | 2016-06-04 11:36 | NUR ---
ROBERT CM SPOKE WITH CTO AND BUSINESS OFFICE TECHNOLOGY INSTRUCTOR WILL WORK WITH DCF FOR PLACEMENT AND CONSULT CM NEEDED.
--- NOTE | 2016-06-04 14:15 | NUR ---
Pt. activity Pt walks in day room and jones and offered to help sweep dining room with manual sweeper, did well. Has cooperative, pleasant affect, talks about geese on pond. Refused Pneumovax vaccine and asked to have his socks cut down since too tight at calf area and was done for pt.
[2016-06-04] MEDS: LORAZEPAM 0.5 MG TABLET PO PRN (15:08)
--- NOTE | 2016-06-04 15:08 | NUR ---
Prn Med Pt given Ativan 0.5 mg po as prior to visit from DCF staff as this has history of upsetting pt.
--- NOTE | 2016-06-04 16:10 | NUR ---
PRN Med response Pt resting in chair in day room. No visit from [facility] up to this time. Cooperative with cares and meds today.
[2016-06-04 16:15] VITALS: BP 136/73; PULSE 73; RESP 16; TEMP 98.5; O2SAT 95
--- NOTE | 2016-06-04 17:01 | PNPDOC ---
DELMA KOENIG V WATER RESOURCES PROGRAM DIRECTOR 06/04/16 1700: Subjective Date DATE: 06/04/16 TIME: 16:54 Subjective Marbin is seen today in follow up for UTI. He is eating in the day room watching television with his jacket on. He is alert, oriented and pleasant during examination. States that he is feeling well without complaints of pain, nausea, shortness of breath or dysuria. Blood pressure this afternoon 136/73. Objective Vital Signs Vital signs Vital Signs Date Time Temp Pulse Resp B/P Pulse Ox O2 Delivery O2 Flow Rate FiO2 06/04/16 16:15 98.5 73 16 136/73 95 Room Air Height (Feet): 5 Height (Inches): 9.00 Weight (Kilograms): 80.100 General General Appearance: Alert, Orientated x 1, Cooperative, No Acute Distress Eyes (Brief) Eyes: FOUND: EOMI ENMT (Brief) ENMT: FOUND: mucosa moist, normal dentition, NOT FOUND: pharnyx erythema Neck (Brief) Neck: FOUND: midline, NOT FOUND: adenopathy, carotid bruits, tracheal deviation Respiratory (Brief) Respiratory: FOUND: clear all bolanos, equal bilaterally, NOT FOUND: wheezes Cardiovascular (Brief) Cardiac: FOUND: regular rate, regular rhythm, NOT FOUND: murmur, pedal edema Capillary Refill: <2 sec Abdomen (Brief) Abdominal: FOUND: BS normo active x4, soft, NOT FOUND: distended, tender Lymphatic (Brief) Lymphatic: NOT FOUND: adenopathy Musculoskeletal (Brief) Musculoskeletal: NOT FOUND: tenderness Integumentary (Brief) Integumentary: FOUND: dry, pink, warm Neurologic (Brief) Neurological: FOUND: cranial 2-12 intact Psychiatric (Brief) Psychiatric: FOUND: alert, attentive, normal affect Laboratory Laboratory Laboratory Tests 06/03/16 08:39 Microbiology Microbiology Microbiology Date/Time Source Procedure Growth Status 06/01/16 17:53 Urine, Clean Catch-Midstream Urine Culture - Final Morganella Morganii Ssp Ino Enterococ Faecalis - (Group D) Complete Assessment & Plan Problems: (1) UTI (urinary tract infection) Status: Acute (2) Dementia Status: Chronic Qualifiers: Dementia type: unspecified type Dementia behavioral disturbance: without behavioral disturbance Qualified Codes: F03.90 - Unspecified dementia without behavioral disturbance (3) Schizophrenia (4) HTN (hypertension) Status: Chronic (5) Urinary incontinence Status: Chronic Qualifiers: Urinary Incontinence type: unspecified incontinence Qualified Codes: R32 - Unspecified urinary incontinence (6) CKD (chronic kidney disease), stage III Status: Chronic (7) Normocytic anemia Status: Chronic (8) BPH (benign prostatic hypertrophy) Status: Chronic Plan/Intensity of Service 06/04/16 Reviewed urine culture reveling Morganella Morganii and Entercoc Faecalis which is susceptible to Cipro. Did discuss dosing with pharmacy given CKD. Will given Cipro 500nmg PO now and continue 25mg BID x7 days Discontinued Keflex Continue to monitor renal function. Will recheck BMP Wednesday 06/07. It is known that baseline creatinine is 2-2.3. Monitor blood pressure and continue on current regimen including Prinzide 20/25 daily Continue to encourage returns today unit activities Code Status Full Code, unverified Hospital Course Summary Disclaimer The hospital course summary below is not to be considered part of the above Progress Note. Hospital Course Summary 06/02/16 Agree with admission to [facility]. UTI - Keflex started. Early growth noted on culture. VC records reviewed Cr ranged from 2-2.6 while hospitalized. He underwent TURP for b/l hydronephrosis. DC'd with these medications: Lisinopril/HCTZ 20/25, Flomax, Seroquel 50 mg BID and 100 mg HS, Aricept 10 mg HS Resume Lisinopril/HCTZ, Flomax. Consider Clonidine PRN or BB if BP does not show good improvement. CKD - recheck BMP in am. Schizophrenia/dementia - per attending. 06/04/16 Reviewed urine culture reveling Morganella Morganii and Entercoc Faecalis which is susceptible to Cipro. Did discuss dosing with pharmacy given CKD. Will given Cipro 500nmg PO now and continue 25mg BID x7 days. Discontinued Keflex Continue to monitor renal function. Will recheck BMP Wednesday 06/07. It is known that baseline creatinine is 2-2.3. Monitor blood pressure and continue on current regimen including Prinzide 20/25 daily Continue to encourage returns today unit activities SHREYA ORTIZ MD 06/06/16 1812: DELMA KOENIG APRN Jun 04, 2016 17:00 SHREYA ORTIZ MD Jun 06, 2016 18:12
--- NOTE | 2016-06-04 18:27 | NUR ---
Sleep Time NO sleep time since up this am.
--- NOTE | 2016-06-04 19:49 | GENPN ---
[facility] Subjective Date DATE: 06/04/16 TIME: 19:45 Subjective/Severity of Illness Medications Current Medications Medications (Trade) Dose Ordered Sig/Tiff Start Time Stop Time Status Last Admin Dose Admin Miscellaneous Medication (May use PRN orders) 1 PRN PRN 06/01/16 22:45 Haloperidol (Haldol) 0.5 mg Q6H PRN 06/01/16 21:40 Lorazepam (Ativan) 0.5 mg Q6H PRN 06/01/16 21:40 06/04/16 15:08 0.5 MG Lorazepam (Ativan) 0.5 mg Q6H PRN 06/01/16 21:40 06/03/16 09:49 0.5 MG Haloperidol Lactate (Haldol 5 Mg/ml Inj) 0.5 mg Q6H PRN 06/01/16 21:40 06/03/16 09:49 0.5 MG Lorazepam (Ativan Intensol) 0.5 mg Q6H PRN 06/01/16 21:40 06/02/16 20:02 0.5 MG Haloperidol (Haldol Liquid) 0.5 mg Q6H PRN 06/01/16 21:40 06/02/16 20:02 0.5 MG Tamsulosin HCl (FLOMAX 0.4 mg) 0.4 mg HS 06/02/16 21:00 06/03/16 20:14 0.4 MG HCTZ/Lisinopril (Prinzide ) 1 tab DAILY 06/03/16 09:00 06/04/16 07:45 1 TAB Cephalexin HCl (Keflex) 500 mg Q8HR 06/02/16 17:00 06/04/16 10:35 DC 06/04/16 07:45 500 MG Quetiapine Fumarate (Seroquel) 25 mg BID 06/02/16 21:00 06/03/16 18:50 DC 06/03/16 08:08 25 MG Quetiapine Fumarate (Seroquel) 50 mg BID 06/03/16 21:00 06/04/16 07:45 50 MG Ciprofloxacin (Cipro) 250 mg Q12HR 06/05/16 09:00 Subjective Pt seen and chart examined. Case discussed with nursing. Nursing reports pt has been pleasant and cooperative on the unit. Sleeping well and has a good appetite. On face to face the pt was pleasant. he was only oriented to self. He remains some what paranoid and disorganized. He denies any S/I or psychosis. Tolerating meds. Time of Service: 17:00 Start Time: 17:00 Stop Time: 17:15 Care >50% of this visit spent in counseling/coordination care. [facility] Exam Vitals Vital Signs Date Time Temp Pulse Resp B/P Pulse Ox O2 Delivery O2 Flow Rate FiO2 06/04/16 16:15 98.5 73 16 136/73 95 Room Air Physical examination performed by the hospitalist. Height (Feet): 5 Height (Inches): 9.00 Mental Status Exam Muscle Strength/Tone: Normal Dressing: Casual Grooming: Good Attitude: Cooperative Motor Activity: Normal Eye Contact: Good Speech: Normal Volume: Normal Rhythm: Appropriate Rhythm Sensory: Alert Orientation: Oriented to person Mood: Euthymic Affect: Congruent Rate of Thoughts: Delayed Thought Organization: Disorganized Associations: Illogical Abstract Reasoning: Impaired, concrete Thought Content: Delusions Perception/Psychotic: Hx psychosis,not current Attention Span/Concentration: Short Span Fund of Knowledge: Poor fund of knowledge Memory: Poor-immediate, Poor-recent Suicidal Ideation: None Homicidal Ideation: None Insight: Fair Judgment: Fair Impulse Control: Fair Assessment and Plan (1) Schizophrenia Assessment: Admit patient to [facility] unit. Start Seroquel 25mg BID. Patient is also Keflex 500mg TID. 06/03/16: Increase Seroquel to 50mg BID: for psychosis 06/04/16 Continue current care (2) Major neurocognitive disorder (3) CKD (chronic kidney disease), stage III (4) BPH (benign prostatic hypertrophy) Cont. current psych. meds FRACISCO PIERRE MD Jun 04, 2016 19:49
[2016-06-04] MEDS: TAMSULOSIN 0.4 MG CAPSULE PO SCH (19:54)
[2016-06-04 22:37] VITALS: BP 141/78; PULSE 77; RESP 18; TEMP 97.9; O2SAT 96
[2016-06-04 23:10] VITALS: PULSE 77; RESP 18
--- NOTE | 2016-06-04 23:30 | NUR ---
Bed time Pt went to bed at 2230 and was asleep at 2300. Bed rails up x 2 and alarm on. Will continue to monitor
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
--- NOTE | 2016-06-05 01:41 | NUR ---
Chart Check 24 hour chart check completed
--- NOTE | 2016-06-05 05:46 | NUR ---
Summary Pt has been sleeping since 2299. Pt alert to person. Up SBA, but does ambulate on own with steady gait. Pt has not displayed any verbal or physical aggression this shift. No behaviors. No PRNs given. Pt continent this shift. Compliant with meds this shift. Currently sleeping. Bed rails up x 2 and alarm on. Will continue to monitor
[2016-06-05] MEDS: LISINOPRIL/HCTZ 20mg/25mg TABLET PO SCH (07:54)
[2016-06-05] MEDS: QUETIAPINE 50 MG TABLET PO SCH (07:54)
[2016-06-05] MEDS: CIPROFLOXACIN 250 MG TABLET PO SCH ×2 (07:54→20:05)
[2016-06-05 09:00] VITALS: BP 121/71; PULSE 78; RESP 18; TEMP 98.2; O2SAT 97
--- NOTE | 2016-06-05 10:19 | NUR ---
Status per hourly shift manager pt was asleep at 2300 woke at 0715 for a total of 8.25hrs. pt alert and oriented to self only. pleasant and cooperative. compliant with am medication. at 100% of breakfast. bp low this am at 84/51 on recheck it was 123/71. no complaints of pain or discomfort.
--- NOTE | 2016-06-05 14:05 | GENPN ---
[facility] Subjective Date DATE: 06/05/16 TIME: 14:01 Subjective/Severity of Illness Medications Current Medications Medications (Trade) Dose Ordered Sig/Tiff Start Time Stop Time Status Last Admin Dose Admin Miscellaneous Medication (May use PRN orders) 1 PRN PRN 06/01/16 22:45 Haloperidol (Haldol) 0.5 mg Q6H PRN 06/01/16 21:40 Lorazepam (Ativan) 0.5 mg Q6H PRN 06/01/16 21:40 06/04/16 15:08 0.5 MG Lorazepam (Ativan) 0.5 mg Q6H PRN 06/01/16 21:40 06/03/16 09:49 0.5 MG Haloperidol Lactate (Haldol 5 Mg/ml Inj) 0.5 mg Q6H PRN 06/01/16 21:40 06/03/16 09:49 0.5 MG Lorazepam (Ativan Intensol) 0.5 mg Q6H PRN 06/01/16 21:40 06/02/16 20:02 0.5 MG Haloperidol (Haldol Liquid) 0.5 mg Q6H PRN 06/01/16 21:40 06/02/16 20:02 0.5 MG Tamsulosin HCl (FLOMAX 0.4 mg) 0.4 mg HS 06/02/16 21:00 06/04/16 19:54 0.4 MG HCTZ/Lisinopril (Prinzide ) 1 tab DAILY 06/03/16 09:00 06/05/16 07:54 1 TAB Cephalexin HCl (Keflex) 500 mg Q8HR 06/02/16 17:00 06/04/16 10:35 DC 06/04/16 07:45 500 MG Quetiapine Fumarate (Seroquel) 25 mg BID 06/02/16 21:00 06/03/16 18:50 DC 06/03/16 08:08 25 MG Quetiapine Fumarate (Seroquel) 50 mg BID 06/03/16 21:00 06/05/16 11:00 DC 06/05/16 07:54 50 MG Ciprofloxacin (Cipro) 250 mg Q12HR 06/05/16 09:00 06/05/16 07:54 250 MG Quetiapine Fumarate (Seroquel) 100 mg BID 06/05/16 21:00 Subjective Pt seen and chart examined. Case discussed with nursing. Nursing reports pt has been pleasant and cooperative on the unit. Sleeping well and has a good appetite.on face to face the pt has poor insight into his illness. he states he is doing well and voices no concerns. some paranoia and delusions. denies ah or s/i. Time of Service: 10:00 Start Time: 10:00 Stop Time: 10:15 Care >50% of this visit spent in counseling/coordination care. [facility] Exam Vitals Vital Signs Date Time Temp Pulse Resp B/P Pulse Ox O2 Delivery O2 Flow Rate FiO2 06/04/16 23:10 77 18 06/04/16 22:37 97.9 141/78 96 Room Air Physical examination performed by the hospitalist. Height (Feet): 5 Height (Inches): 9.00 Mental Status Exam Muscle Strength/Tone: Normal Dressing: Casual Grooming: Good Attitude: Cooperative Motor Activity: Retardation Eye Contact: Good Speech: Normal Volume: Normal Rhythm: Appropriate Rhythm Sensory: Alert Orientation: Oriented to person Mood: Neutral Affect: Congruent Rate of Thoughts: Delayed Thought Organization: [place] Associations: Intact Abstract Reasoning: Impaired, concrete Thought Content: Delusions, Paranoia Perception/Psychotic: Psychotic Attention Span/Concentration: Short Span Fund of Knowledge: Poor fund of knowledge Memory: Poor-immediate, Poor-recent Suicidal Ideation: None Homicidal Ideation: None Insight: Fair Judgment: Fair Impulse Control: Fair Assessment and Plan (1) Schizophrenia Assessment: Admit patient to [facility] unit. Start Seroquel 25mg BID. Patient is also Keflex 500mg TID. 06/03/16: Increase Seroquel to 50mg BID: for psychosis 06/04/16 Continue current care 06/05/16 increase seroquel to 100mg po bid (2) Major neurocognitive disorder (3) CKD (chronic kidney disease), stage III (4) BPH (benign prostatic hypertrophy) Cont. current psych. meds FRACISCO PIERRE MD Jun 05, 2016 14:05
[2016-06-05 16:00] VITALS: BP 125/69; PULSE 68; RESP 16; TEMP 98.6; O2SAT 93
--- NOTE | 2016-06-05 17:49 | NUR ---
summary pt slept .75 hrs since waking this am. ate well at all meals except supper. pt refused it but he had several snacks right before supper was served. pt's oil well services supervisor was here late this am. visited for quite a while. once oil well services supervisor left pt isolated in his room most of the afternoon. came out once or twice to get a snack and a drink. since then pt has also became more somber. did not visit with staff as much. has taken all medications up to this point. has not been verbally aggressive this shift.
[2016-06-05] MEDS: TAMSULOSIN 0.4 MG CAPSULE PO SCH (20:05)
[2016-06-05] MEDS: QUETIAPINE 100 MG TABLET PO SCH (20:06)
[2016-06-05 21:36] VITALS: BP 115/82; PULSE 71; RESP 16; TEMP 97.8; O2SAT 94
[2016-06-05 22:38] VITALS: PULSE 71; RESP 16
--- NOTE | 2016-06-05 23:47 | NUR ---
Bed time Pt went to bed at 2215. Pt asleep at 2300. Slept .75 on day shift
--- NOTE | 2016-06-06 00:26 | NUR ---
Mid shift status Pt was sitting in dining area at beginning of shift. Pt alert to person. Up SBA, ambulating on own. Pt pleasant and cooperative. Smiling and joking with staff. Denies pain. Denies SOA. Compliant with HS meds, taking whole without difficulty. Pt moved to day room to watch a movie. Stated he wanted some ice cream. Pt was given chocolate ice cream. Pt stated he wanted 4 ice creams, but staff suggested he have just one at a time. Pt ended up having 5 small ice cream cups. He looked at this nurse when he was finished with the 5th one and stated he wanted another one. I suggested that 5 was probably plenty for the night. Pt nodded and stated "I was just checking to see if you would or not, but I knew you wouldn't", then laughed. Pt thanked staff for being so nice to him. Sat with pt while watching movie and once movie was finished, asked pt if he was ready to lay down for the night. Pt nodded. Once at pt room, I explained to pt the need for taking his belts and his shoes and locking them up for safety. Pt did start to become agitated with that, asking "why you want to steal from me". I looked pt eye to eye and calmly explained that I was locking his belongings up for safety and was not stealing from him". Pt then smiled and stated "I don't want to but if that's what you want me to do then I will do it." Pt would not however allow his clothes to be changed. Pt continent. Pt went to bed at 2215 and was asleep by 2300. No display of verbal or physical aggression noted. No behaviors. No PRNs given. Pt currently sleeping. Bed rails up x 2 and alarm on. Will continue to monitor
--- NOTE | 2016-06-06 05:35 | NUR ---
Summary Pt has been sleeping since 2300. Pt alert to person. Up SBA. Pt woke at 0525 and is currently awake, sitting on his bed. Pt is awake for the morning. Pt slept a total of 6.5 hours overnight. Pt is pleasant and cooperative this morning. No verbal or physical aggression noted. No PRNs given. Pt has been continent. Will continue to monitor Addendum: 06/06/16 at 0558 by HAYLEY BRANDON RN Pt came out into the day room and drank a cup of apple juice. Went back to room to get his jacket, stating he is cold. Will continue to monitor Addendum: 06/06/16 at 0609 by HAYLEY BRANDON RN At 0600, pt decided to lay back down in bed, stating he is still tired. Currently lying awake in bed. Bed rails up x 2 and alarm on. Will continue to monitor
[2016-06-06] MEDS: CIPROFLOXACIN 250 MG TABLET PO SCH ×2 (07:55→21:30)
[2016-06-06] MEDS: QUETIAPINE 100 MG TABLET PO SCH ×2 (07:55→21:30)
[2016-06-06] MEDS: LISINOPRIL/HCTZ 20mg/25mg TABLET PO SCH (07:55)
[2016-06-06 08:00] VITALS: PULSE 74
[2016-06-06 08:15] VITALS: BP 120/86; PULSE 72; RESP 16; TEMP 98.2; O2SAT 96
--- NOTE | 2016-06-06 11:11 | GENPN ---
[facility] Subject[facility] Date DATE: 06/06/16 TIME: 11:08 Subjective/Severity of Illness Medications Current Medications Medications (Trade) Dose Ordered Sig/Tiff Start Time Stop Time Status Last Admin Dose Admin Miscellaneous Medication (May use PRN orders) 1 PRN PRN 06/01/16 22:45 Haloperidol (Haldol) 0.5 mg Q6H PRN 06/01/16 21:40 Lorazepam (Ativan) 0.5 mg Q6H PRN 06/01/16 21:40 06/04/16 15:08 0.5 MG Lorazepam (Ativan) 0.5 mg Q6H PRN 06/01/16 21:40 06/03/16 09:49 0.5 MG Haloperidol Lactate (Haldol 5 Mg/ml Inj) 0.5 mg Q6H PRN 06/01/16 21:40 06/03/16 09:49 0.5 MG Lorazepam (Ativan Intensol) 0.5 mg Q6H PRN 06/01/16 21:40 06/02/16 20:02 0.5 MG Haloperidol (Haldol Liquid) 0.5 mg Q6H PRN 06/01/16 21:40 06/02/16 20:02 0.5 MG Tamsulosin HCl (FLOMAX 0.4 mg) 0.4 mg HS 06/02/16 21:00 06/05/16 20:05 0.4 MG HCTZ/Lisinopril (Prinzide ) 1 tab DAILY 06/03/16 09:00 06/06/16 07:55 1 TAB Cephalexin HCl (Keflex) 500 mg Q8HR 06/02/16 17:00 06/04/16 10:35 DC 06/04/16 07:45 500 MG Quetiapine Fumarate (Seroquel) 25 mg BID 06/02/16 21:00 06/03/16 18:50 DC 06/03/16 08:08 25 MG Quetiapine Fumarate (Seroquel) 50 mg BID 06/03/16 21:00 06/05/16 11:00 DC 06/05/16 07:54 50 MG Ciprofloxacin (Cipro) 250 mg Q12HR 06/05/16 09:00 06/06/16 07:55 250 MG Quetiapine Fumarate (Seroquel) 100 mg BID 06/05/16 21:00 06/06/16 07:55 100 MG Subjective Pt seen and chart examined. Case discussed with nursing. Nursing reports pt is doing well. Sleeping and eating well. No behaviors noted. On face to face the pt is resting in bed. He is oriented x 2. Not sure of date. He reports his mood is stable and he denies any psychotic symptoms. Tolerating his meds. Denies pain. Time of Service: 10:00 Start Time: 10:00 Stop Time: 10:15 Care >50% of this visit spent in counseling/coordination care. [facility] Exam Vitals Vital Signs Date Time Temp Pulse Resp B/P Pulse Ox O2 Delivery O2 Flow Rate FiO2 06/06/16 08:15 98.2 72 16 120/86 96 Room Air Physical examination performed by the hospitalist. Height (Feet): 5 Height (Inches): 9.00 Mental Status Exam Muscle Strength/Tone: Normal Dressing: Casual Grooming: Good Attitude: Cooperative Motor Activity: Normal Eye Contact: Good Speech: Normal Volume: Normal Rhythm: Appropriate Rhythm Sensory: Alert Orientation: Disoriented to place, Oriented to person Mood: Euthymic Affect: Congruent Rate of Thoughts: Appropriate Rate Thought Organization: [place] Associations: Intact Abstract Reasoning: Impaired, concrete Thought Content: Delusions Attention Span/Concentration: Normal Fund of Knowledge: Poor fund of knowledge Memory: Poor-immediate, Poor-recent Suicidal Ideation: None Homicidal Ideation: None Insight: Fair Judgment: Fair Impulse Control: Fair Assessment and Plan (1) Schizophrenia Assessment: Admit patient to [facility]. Start Seroquel 25mg BID. Patient is also Keflex 500mg TID. 06/03/16: Increase Seroquel to 50mg BID: for psychosis 06/04/16 Continue current care 06/05/16 increase seroquel to 100mg po bid 06/06/16 Continue current care (2) Major neurocognitive disorder (3) CKD (chronic kidney disease), stage III (4) BPH (benign prostatic hypertrophy) Cont. current psych. meds FRACISCO PIERRE MD Jun 06, 2016 11:11
[2016-06-06 16:00] VITALS: BP 139/69; PULSE 70; RESP 16; TEMP 98.4; O2SAT 96
--- NOTE | 2016-06-06 17:49 | NUR ---
Shift Summary Pt awake at 0830 this am. He has been up and down most of day. He had his meals in dining area. He did spend some time watching a movie in the day room this afternoon. He also spent some time in his room listening to music. Pt ate 100% of all his meals. no prns given. No behaviors or outbursts noted. Pleasant with staff and cares and other patients.
--- NOTE | 2016-06-06 20:15 | NUR ---
STATUS PT IS ANXIOUS AND UPSET SPEAKING LOUDLY WITH STAFF. PT IS UPSET ABOUT HIS CURRENT SITUATION AND PLACEMENT INTO THE FACILITY. PT FEELS HE IS BEING HELD AGAINST HIS WILL AND STATES THAT "MY BROTHER IS A THIEF AND SO IS EVERYONE HERE, NO ONE IS TRYING TO DO GOOD OR HELP ME". THIS RN HAD A CONVERSATION WITH THE PT ATTEMPTING TO EXPLAIN THE REASON PT IS IN THE FACILITY AND THE WAYS THAT THE STAFF HERE CAN HELP THE PT. FOLLOWING CONVERSATIONS PT IS MORE CALM.
--- NOTE | 2016-06-06 20:30 | NUR ---
STATUS PT REFUSES TO ALLOW THIS RN TO PERFORM ASSESSMENT AND REFUSES TO TAKE HS MEDICATIONS.
[2016-06-06 21:30] VITALS: RESP 16
[2016-06-06] MEDS: TAMSULOSIN 0.4 MG CAPSULE PO SCH (21:30)
--- NOTE | 2016-06-06 21:30 | NUR ---
STATUS PT SITTING IN DAY ROOM IS MORE CALM AND RELAXED. PT IS WATCHING TELEVISION AND EATING SNACKS. PT ALLOWED THIS RN TO GIVE HIM HIS MEDICATIONS AND ALLOWED FOR VITALS SIGNS AND ASSESSMENT.
--- NOTE | 2016-06-06 22:00 | NUR ---
BEDTIME PT IS IN BED AT THIS TIME. HOWEVER IT IS NOTED PT IS IN FULL CLOTHING INCLUDING BELT AND SHOES. WHEN REQUESTING PT TO REMOVE THESE ITEMS PT BECAME UPSET AND REFUSED TO ALLOW STAFF TO REMOVE THE ITEMS. IT IS EXPLAINED TO PT THAT HE CANNOT HAVE THE ITEMS IN HIS ROOM THAT IS POLICY FOR ALL PT'S. EXPLAINED TO PT THAT IF HE IS NOT WILLING TO COMPLY THAT HE WILL HAVE TO BE WATCHED MORE CLOSELY AND LEAVE HIS DOOR OPEN. PT STATES HE WOULD RATHER DO THIS THAN "HAVE MY THINGS STOLEN". THIS RN IS STATIONED OUTSIDE OF PT ROOM PERFORMING CONSTANT OBSERVATION OF PT.
[2016-06-06 22:42] VITALS: BP 135/84; PULSE 71; RESP 16; TEMP 98.4; O2SAT 96
--- NOTE | 2016-06-06 23:30 | NUR ---
STATUS PT IS AGREEABLE AT THIS TIME AFTER LENGTHY DISCUSSION TO REMOVING ITEMS AND ALLOWING STAFF TO LOCK BELTS AND SHOES IN CABINET OUTSIDE PT ROOM. PT IN BED RESTING COMFORTABLY FOLLOWING.
--- NOTE | 2016-06-07 01:52 | NUR ---
Chart Check 24 hour chart check completed
--- NOTE | 2016-06-07 05:49 | NUR ---
SHIFT SUMMARY Pt is alert oriented to self, loosely oriented to place and time intermittently. Pt has confusion recalling past events and placing events in a timeline. Pt has been agitated and uncooperative intermittently throughout the shift. This RN as well as Megha RN have had conversations with pt to ensure pt that he is here to receive care and to assist with ensuring pt is cared for properly. Pt has not had PRN medications. See notes for pt periods of aggressive/argumentative behaviors. Pt refused blood draw this morning. Pt has reported several times feeling that he has been stolen from and is being held as a prisoner. Pt curses and refuses to accept truths about care from staff and states that everyone here is evil.
[2016-06-07] MEDS: CIPROFLOXACIN 250 MG TABLET PO SCH ×2 (08:44→20:50)
[2016-06-07] MEDS: LISINOPRIL/HCTZ 20mg/25mg TABLET PO SCH (08:44)
[2016-06-07] MEDS: QUETIAPINE 100 MG TABLET PO SCH ×2 (08:44→20:50)
--- NOTE | 2016-06-07 09:00 | NUR ---
Status Pt woke up around 815, is pleasant and cooperative with assessment and meds this morning. Pt able to get dressed on his own. Denies pain. Pt ate 100% of breakfast. Pt is in room at this time, resting in bed.
[2016-06-07 09:06] VITALS: RESP 16
--- NOTE | 2016-06-07 09:45 | PNPDOC ---
Subjective Date DATE: 06/07/16 TIME: 09:39 Subjective Marbin was up and ready for the day. He asked for my help to tie his shoes. His speech was much more easily understood today compared to the first time I met him. He was calm and cooperative. He denied any pain, difficulty breathing, or GI complaints. Nursing staff report, however, that he's been agitated and uncooperative at times. He's been eating well. Last BM was on 06/06/16. Objective Vital Signs Vital signs Vital Signs Date Time Temp Pulse Resp B/P Pulse Ox O2 Delivery O2 Flow Rate FiO2 06/07/16 09:06 16 06/06/16 22:42 98.4 71 135/84 96 Room Air Height (Feet): 5 Height (Inches): 9.00 Weight (Kilograms): 80.100 General General Appearance: Alert, Well Nourished, Well Developed, No Acute Distress Eyes (Brief) Eyes: FOUND: PERRL, NOT FOUND: scleral icterus ENMT (Brief) ENMT: FOUND: mucosa moist, NOT FOUND: pharnyx erythema Respiratory (Brief) Respiratory: FOUND: clear all bolanos, equal bilaterally Cardiovascular (Brief) Cardiac: FOUND: regular rate, regular rhythm Abdomen (Brief) Abdominal: FOUND: BS normo active x4, soft, NOT FOUND: distended, tender Extremities (Brief) Extremity : Extremity Finding: NOT FOUND: edema Musculoskeletal (Brief) Musculoskeletal: NOT FOUND: deformity, tenderness Integumentary (Brief) Integumentary: FOUND: dry, pink, warm Psychiatric (Brief) Psychiatric: FOUND: alert, attentive, normal affect, oriented (x1-2) Assessment & Plan Problems: (1) UTI (urinary tract infection) Status: Acute Assessment & Plan: MICROBIOLOGY URINE CULTURE. Final 06/04/16-708 Organism 1 MORGANELLA MORGANII SSP BRENDON COLONY COUNT >100,000 CFU/ml Organism 2 ENTEROCOC FAECALIS - (GROUP D) COLONY COUNT >100,000 CFU/ml M MORGANII E FAECA(D) INTERP JAYA INTERP JAYA ------ --------- ------ --------- AMOX/CLAV ACID R AMPICILLIN R S <=2 CEFAZOLIN R CEFEPIME S <=1 CEFTAZIDIME S <=1 CEFTRIAXONE S <=1 CIPROFLOXACIN S <=0.25 S <=0.5 DOXYCYCLINE S <=0.5 ERTAPENEM S <=0.5 GENTAMICIN S <=1 LEVOFLOXACIN S <=0.12 S 0.5 LINEZOLID S 1 NITROFURANTOIN R 128 S <=16 TETRACYCLINE S <=1 TOBRAMYCIN S <=1 TRIMETH/SULFA S <=20 PIPERACILL/TAZO S <=4 VANCOMYCIN S 1 (2) Dementia Status: Chronic Qualifiers: Dementia type: unspecified type Dementia behavioral disturbance: without behavioral disturbance Qualified Codes: F03.90 - Unspecified dementia without behavioral disturbance (3) Schizophrenia (4) HTN (hypertension) Status: Chronic (5) Urinary incontinence Status: Chronic Qualifiers: Urinary Incontinence type: unspecified incontinence Qualified Codes: R32 - Unspecified urinary incontinence (6) CKD (chronic kidney disease), stage III Status: Chronic (7) Normocytic anemia Status: Chronic (8) BPH (benign prostatic hypertrophy) Status: Chronic Plan/Intensity of Service Dual organism UTI - cont. Cipro. Repeat BMP today to f/u on renal function. BP controlled on Prinzide. Psychiatric progress notes reviewed - Seroquel recently increased. Code Status Full Code, unverified Hospital Course Summary Disclaimer The hospital course summary below is not to be considered part of the above Progress Note. Hospital Course Summary 06/02/16 Agree with admission to [facility]. UTI - Keflex started. Early growth noted on culture. VC records reviewed Cr ranged from 2-2.6 while hospitalized. He underwent TURP for b/l hydronephrosis. DC'd with these medications: Lisinopril/HCTZ 20/25, Flomax, Seroquel 50 mg BID and 100 mg HS, Aricept 10 mg HS Resume Lisinopril/HCTZ, Flomax. Consider Clonidine PRN or BB if BP does not show good improvement. CKD - recheck BMP in am. Schizophrenia/dementia - per attending. 06/04/16 Reviewed urine culture reveling Morganella Morganii and Entercoc Faecalis which is susceptible to Cipro. Did discuss dosing with pharmacy given CKD. Will given Cipro 500nmg PO now and continue 25mg BID x7 days. Discontinued Keflex Continue to monitor renal function. Will recheck BMP Wednesday 06/07. It is known that baseline creatinine is 2-2.3. Monitor blood pressure and continue on current regimen including Prinzide 20/25 daily Continue to encourage returns today unit activities 06/07/16 Dual organism UTI - cont. Cipro. Repeat BMP today to f/u on renal function. BP controlled on Prinzide. Psychiatric progress notes reviewed - Seroquel recently increased. MADHAVI TOLLIVER APRN Jun 07, 2016 09:42
[2016-06-07] MEDS: LORAZEPAM 0.5 MG TABLET PO PRN (10:18)
--- NOTE | 2016-06-07 10:22 | NUR ---
RADHA Pt is refusing to let his blood be drawn for lab work. Ativan given to see if this will help.
--- NOTE | 2016-06-07 11:05 | NUR ---
WINCH DERRICK OPERATOR--AM GROUP WINCH DERRICK OPERATOR--AM GROUP Pt. was present and only passively engaged in psychoeducational group facilitated by [facility]. Activity involved neurocognitive game to help stimulate general recall of information regarding [place] holiday and favorite childhood memory of Easter. Pt. appeared to be dozing off and on during the group. He remained calm with pleasant mood. He did not attempt to answer questions on his own. He would nod his head "yes" or "no" when asked a specific question. Ended group by playing variety of Sikhism hymns. Pt. was observed singing along with some of the songs with his eyes closed.
--- NOTE | 2016-06-07 11:45 | NUR ---
Lab SW went in and talked with pt about getting his blood drawn for lab, then this nurse went in with senior label specialist and talked with pt. At first pt declined to have blood drawn, pt stated that he would get paid to give blood if he went to [facility]. This nurse offered pt pie and icecream if he would agree to get blood drawn, pt did agree. Blood drawn and pt given apple pie and ice cream.
[2016-06-07 12:07] LABS: ANION GAP 10 MEQ/L (5-15); BUN/CREATININE RATIO 18 RATIO (6-26); CALCIUM 9.4 MG/DL (8.4-10.2); CHLORIDE 104 MEQ/L (98-107); CO2 - CARBON DIOXIDE 26 MEQ/L (22-30); CREATININE 2.6 MG/DL (0.8-1.5); GLOMERULAR FILTRATION RATE 25; GLUCOSE 79 MG/DL (75-110); POTASSIUM 4.8 MEQ/L (3.6-5); SODIUM 140 MEQ/L (134-144)
[2016-06-07 12:38] VITALS: BP 102/64; PULSE 77; RESP 18; TEMP 97.6; O2SAT 97
--- NOTE | 2016-06-07 15:03 | NUR ---
UNDERWATER HUNTER--PM GROUP Pt. was asleep in his room and did not participate in psychoeducational group facilitated by [facility].
--- NOTE | 2016-06-07 16:05 | NUR ---
Status Pt is very upset thinks staff is stealing his stuff, told this nurse to "go to hell and leave him alone". Looked through pts mehdi Addendum: 06/07/16 at 1608 by JONES NOE RN Belongings. Pt is talking with SW at this time.
[2016-06-07 16:37] VITALS: BP 113/67; PULSE 82; RESP 18; TEMP 98.6; O2SAT 95
--- NOTE | 2016-06-07 18:19 | NUR ---
Shift Summary Pt was awake from 8:15 am to present. Pt was able to calm down after talking with SW this afternoon about his belongings. Pt ate 100% of meals today and had multiple snacks and drinks. Pt is out in dayroom watching TV at this time. Pt was given PRN earlier in shift for lab draw, no other prns given this shift. Behaviors noted in other notes from today.
--- NOTE | 2016-06-07 19:45 | GENPN ---
[facility] Subjective Date DATE: 06/07/16 TIME: 10:38 Subjective/Severity of Illness Medications Current Medications Medications (Trade) Dose Ordered Sig/Tiff Start Time Stop Time Status Last Admin Dose Admin Miscellaneous Medication (May use PRN orders) 1 PRN PRN 06/01/16 22:45 Haloperidol (Haldol) 0.5 mg Q6H PRN 06/01/16 21:40 Lorazepam (Ativan) 0.5 mg Q6H PRN 06/01/16 21:40 06/07/16 10:18 0.5 MG Lorazepam (Ativan) 0.5 mg Q6H PRN 06/01/16 21:40 06/03/16 09:49 0.5 MG Haloperidol Lactate (Haldol 5 Mg/ml Inj) 0.5 mg Q6H PRN 06/01/16 21:40 06/03/16 09:49 0.5 MG Lorazepam (Ativan Intensol) 0.5 mg Q6H PRN 06/01/16 21:40 06/02/16 20:02 0.5 MG Haloperidol (Haldol Liquid) 0.5 mg Q6H PRN 06/01/16 21:40 06/02/16 20:02 0.5 MG Tamsulosin HCl (FLOMAX 0.4 mg) 0.4 mg HS 06/02/16 21:00 06/06/16 21:30 0.4 MG HCTZ/Lisinopril (Prinzide ) 1 tab DAILY 06/03/16 09:00 06/07/16 08:44 1 TAB Cephalexin HCl (Keflex) 500 mg Q8HR 06/02/16 17:00 06/04/16 10:35 DC 06/04/16 07:45 500 MG Quetiapine Fumarate (Seroquel) 25 mg BID 06/02/16 21:00 06/03/16 18:50 DC 06/03/16 08:08 25 MG Quetiapine Fumarate (Seroquel) 50 mg BID 06/03/16 21:00 06/05/16 11:00 DC 06/05/16 07:54 50 MG Ciprofloxacin (Cipro) 250 mg Q12HR 06/05/16 09:00 06/07/16 08:44 250 MG Quetiapine Fumarate (Seroquel) 100 mg BID 06/05/16 21:00 06/07/16 08:44 100 MG Subjective Patient seen and chart reviewed. Case discussed with treatment team. Patient is observed calmly participating in group during rounds. Per staff, patient has continued to exhibit paranoia (in regards to staff stealing his things), worse in the evening time. He did refuse a blood draw ordered by the hospitalist this morning and has done this before. Patient often calms if he is given time to himself. He initially refused meds last night but self-calmed and took them ~30 minutes later. Patient slept 10 hours overnight. Appetite is good. VSS. Ordered labs pending if patient will consent to blood draw. Psychotropic PRNs required in the past 24 hours: none. Time of Service: 10:00 Start Time: 10:40 Stop Time: 11:00 Care >50% of this visit spent in counseling/coordination care. [facility] Exam Vitals Vital Signs Date Time Temp Pulse Resp B/P Pulse Ox O2 Delivery O2 Flow Rate FiO2 06/07/16 09:06 16 06/06/16 22:42 98.4 71 135/84 96 Room Air Physical examination performed by the hospitalist. Height (Feet): 5 Height (Inches): 9.00 Mental Status Exam Muscle Strength/Tone: Normal Dressing: Casual Grooming: Good Attitude: Suspicious Motor Activity: Normal Eye Contact: Fair Speech: Normal Volume: Normal Rhythm: Appropriate Rhythm Sensory: Alert Orientation: Disoriented to place, Oriented to person Mood: Neutral Affect: Labile (improved) Thought Organization: Organized Associations: Illogical (at times) Abstract Reasoning: Poor abstract reasoning Thought Content: Paranoia (intermittent) Perception/Psychotic: Other (Paranoid delusions present, not observed responding to internal stimuli) Attention Span/Concentration: Normal Language: [place] Intact Fund of Knowledge: Other (Decreased) Memory: Poor-recent Suicidal Ideation: None Homicidal Ideation: None Insight: Limited Judgment: Limited Impulse Control: Fair Assessment and Plan (1) Schizophrenia Assessment: Admit patient to [facility] unit. Start Seroquel 25mg BID. Patient is also Keflex 500mg TID. 06/03/16: Increase Seroquel to 50mg BID: for psychosis 06/04/16 Continue current care 06/05/16 increase seroquel to 100mg po bid 06/06/16 Continue current care 06/07/16: Continue current care; will give PRN Ativan and see if patient allows blood work to be drawn today. (2) Major neurocognitive disorder (3) CKD (chronic kidney disease), stage III (4) BPH (benign prostatic hypertrophy) Cont. current psych. meds Continue current care; will give PRN Ativan and see if patient allows blood work to be drawn today. BRYANT MATHEW MD Jun 07, 2016 10:38
[2016-06-07 19:54] VITALS: RESP 16
[2016-06-07 19:59] VITALS: BP 135/71; PULSE 74; RESP 16; TEMP 98.4; O2SAT 96
[2016-06-07] MEDS: TAMSULOSIN 0.4 MG CAPSULE PO SCH (20:50)
--- NOTE | 2016-06-07 22:13 | NUR ---
SUMMARY PT HAS BEEN LABILE THROUGHOUT SHIFT. HE REFUSED TO ANSWER ORIENTATION QUESTIONS WHEN ASKED, SAYING, "I WANT TO HAVE A FEW SECRETS." HE ALLOWED RN TO PERFORM BASIC PHYSICAL ASSESSMENT BUT REFUSED TO ANSWER QUESTIONS. HIS SPEECH REMAINS MUMBLED AND DIFFICULT TO UNDERSTAND. TOOK MEDICATIONS WHOLE WITHOUT DIFFICULTY. INDEPENDENTLY GAVE SELF A SHOWER, BUT IT TOOK AID NEARLY THIRTY MINUTES OF WAITING AND DIRECTING HIM TO GET UNDRESSED TO TAKE SHOWER. WHEN IT WAS DISCOVERED THAT THE PT HAD A BILLFOLD WITH A LARGE AMOUNT OF MONEY, IT WAS TAKEN TO BE PLACED IN THE HOSPITAL SAFE. PT WAS INFORMED THAT HIS MONEY WOULD BE KEPT THERE AND RETURNED UPON HIS DISCHARGE BUT PT BECAME AGITATED WITH MICROFILMING DOCUMENT PREPARER, SAYING, "IF I DON'T GET MY MONEY BACK, I'M GOING TO KILL WHOEVER I HAVE TO." PT WAS INFORMED HE COULD EITHER CALM DOWN AND CEASE MAKING THREATS OR GO TO HIS ROOM. PT QUIETED AND WATCHED TV IN THE DR WITHOUT FURTHER INCIDENT. PT DOES EXHIBIT SOME SX OF CONFUSION, SAYING HE DOESN'T KNOW WHICH ROOM HE'S IN AND TELLING STAFF HE DOESN'T REMEMBER WHAT HE'S TOLD, BUT HE IS INCONSISTENT WITH THIS. SOMETIMES HE REMEMBERS EVERYTHING AND OTHER TIMES HE SAYS HE DOESN'T KNOW WHAT HE WAS JUST TOLD. PT IS CURRENTLY IN DAYROOM, WITH STAFF PRESENT.
[2016-06-08 01:25] LABS: LDL CHOLESTEROL,CALCULATED 109.6 (66-159); RISK FACTOR 3.4 RATIO (0-5.0); VLDL CHOLESTEROL 24.4 MG/DL (0-28)
--- NOTE | 2016-06-08 01:42 | NUR ---
Chart Check 24 hour chart check completed
--- NOTE | 2016-06-08 06:50 | NUR ---
Sleep time Pt. is asleep at 2245 and is awake at 0345. Pt. slept 0 hours during days.
--- NOTE | 2016-06-08 07:13 | NUR ---
Summary Pt. is awakened and sets off the bed alarm due to incontinence. Pt. is angry and guarded with staff. Pt. is paranoid staff is stealing his items and refuses to allow staff to assist with hygiene cares. Pt. screams at staff to get out of his room. Pt. does not become physically aggressive but is verbally aggressive and loud. Pt. throws items out of his room (gown, socks, laundry basket) and slams door. Pt. is left alone to self calm. During rounding pt is sitting in the recliner with a scowl on his face. Pt. remains quietly in his room the rest of the shift.
[2016-06-08 08:42] VITALS: BP 123/75; PULSE 76; RESP 20; TEMP 97.3; O2SAT 97
[2016-06-08] MEDS: QUETIAPINE 100 MG TABLET PO SCH ×2 (08:43→20:09)
[2016-06-08] MEDS: CIPROFLOXACIN 250 MG TABLET PO SCH ×2 (08:43→20:09)
--- NOTE | 2016-06-08 09:44 | NUR ---
status pt alert and oriented to self only. is pleasant and cooperative this am. compliant with am meds. per noc shift. pt went to bed [id number] and was awake at 0345. pt did sleep for about 45 min this am from 0730 to 0815.
--- NOTE | 2016-06-08 10:30 | NUR ---
MATERIAL COORDINATOR--AM GROUP Pt. was asleep and did not participate in psychoeducational group facilitated by [facility].
--- NOTE | 2016-06-08 10:52 | NUR ---
BOXER OPERATOR--DCF CONTACT [facility] received phone call from Per Hanna ([phone]. [phone]) DCF worker. She said pt's lay brother met with him on Tuesday and feels he is able to participate in his hearing on June 15. Per asked for update on how pt. was doing and if pt's behaviors continue to indicate he needs legal guardian appointed. This SW advised Per that pt. continues to be very confused. He is only oriented to person. He needs reminders to find his room. He demonstrates presence of paranoid delusions and needs frequent reminders as to where and why most of his belongings are locked up for safe keeping. He will insist he brought certain items to the hospital with him that are not listed on his inventory. He makes threats to errol and/or kill the person who stole his belongings. Per is not able to get his guardianship hearing moved up before June 15. She is not sure how pt. will be transported to [place] for his hearing. It was suggested that she try and make arrangements for [facility]'s Dept. to transport pt. to and from the hearing for the safety of both the patient and herself. DCF worker asked if there was any testing or documentation that could be provided to the court to show pt's level of functioning. This SW agreed to talk with Dr. Clark regarding her suggestions. [facility] spoke with Dr. Clark. She continues to believe pt. is in need of legal guardian. Pt. scored a "2" on his initial SLUMS. Dr. Clark suggested that it might be re-done to see if there is any improvement. She will also order KEITH AND RPPA to provide documentation on how well pt. would do in the community.
[2016-06-08] MEDS: LORAZEPAM 0.5 MG TABLET PO PRN (13:43)
--- NOTE | 2016-06-08 13:48 | NUR ---
ACID CLEANER--[facility] due to increasing irritable mood and threats to harm staff. Pt. had just finished working with Angie (OT) on some cognitive testing. Pt. was only oriented to himself. He felt the OT was trying to trick him into something. He made accusations that people are stealing his personal belongings and are part of a larger force out to hurt him. At times his voice would get loud and he would express intent on killing people in the unit "just for the fun of it." At other times, his voice would get very soft and he would mumble almost inaudible words. Pt. stated that he knew that he had not done anything to hurt anyone yet but he was ready to "kick their faces in" and he did not care if they were "dirty bitches." Pt. expressed frustration that most of the people who are supposed to be helping him are really just "evil people trying to steal my stuff." Pt. was reminded that he was in the hospital for both physical symptoms and increased confusion and that an employment attorney had been by to talk with him about an upcoming guardianship hearing. Pt. made racial slurs about the employment attorney that was assigned to his case and insisted that employment attorney's only intent was to harm him. When asked what pt. needed, he stated he needed a vacation. He asked this SW to take him back to the [employer] in [place] where he had been living on the back [facility]. He could not remember the name of the synagogue nor could he remember the name of the bank where his account is. He stated he could go to any bank in [place] and they would give him his money. Pt. stated that no one knew that he was living on a back porch area of the synagogue. This SW tried to talk with pt. about DCF worker (Per Hanna) being on his side and trying to get his disability check re-instated (it has been suspended due to no permanent mailing address). This SW provided supportive, reflective listening. Pt. is frustrated that his personal belongings are locked up for his protection. The patient's loud disruptive behaviors contributed to another male patient escalating with potential risk of physical aggression between the two patients. This SW asked program associate to help intervene. He was able to divert the pt. back to his office where he met with him 1:1.
--- NOTE | 2016-06-08 13:54 | NUR ---
PRN/behaviors pt visiting with SW, started to get very suspicious and accusing staff of stealing his things. pt body language changed to become defensive, tone of voice is angry. pt is not able to be redirected. prn ativan 0.5mg given at 1348. 1600 seroquel was given at that time also. will continue to monitor.
--- NOTE | 2016-06-08 15:00 | NUR ---
followup pt mood better, less angry after visiting with coordinator. voice is calmer and is visiting with staff appropriately.
[2016-06-08] MEDS ORDERED: QUETIAPINE 50 MG TABLET PO SCH (16:00)
--- NOTE | 2016-06-08 16:36 | GENPN ---
[facility] Subjective Date DATE: 06/08/16 TIME: 10:19 Subjective/Severity of Illness Medications Current Medications Medications (Trade) Dose Ordered Sig/Tiff Start Time Stop Time Status Last Admin Dose Admin Miscellaneous Medication (May use PRN orders) 1 PRN PRN 06/01/16 22:45 Haloperidol (Haldol) 0.5 mg Q6H PRN 06/01/16 21:40 Lorazepam (Ativan) 0.5 mg Q6H PRN 06/01/16 21:40 06/07/16 10:18 0.5 MG Lorazepam (Ativan) 0.5 mg Q6H PRN 06/01/16 21:40 06/03/16 09:49 0.5 MG Haloperidol Lactate (Haldol 5 Mg/ml Inj) 0.5 mg Q6H PRN 06/01/16 21:40 06/03/16 09:49 0.5 MG Lorazepam (Ativan Intensol) 0.5 mg Q6H PRN 06/01/16 21:40 06/02/16 20:02 0.5 MG Haloperidol (Haldol Liquid) 0.5 mg Q6H PRN 06/01/16 21:40 06/02/16 20:02 0.5 MG Tamsulosin HCl (FLOMAX 0.4 mg) 0.4 mg HS 06/02/16 21:00 06/07/16 20:50 0.4 MG HCTZ/Lisinopril (Prinzide ) 1 tab DAILY 06/03/16 09:00 Future Hold 06/07/16 08:44 1 TAB Cephalexin HCl (Keflex) 500 mg Q8HR 06/02/16 17:00 06/04/16 10:35 DC 06/04/16 07:45 500 MG Quetiapine Fumarate (Seroquel) 25 mg BID 06/02/16 21:00 06/03/16 18:50 DC 06/03/16 08:08 25 MG Quetiapine Fumarate (Seroquel) 50 mg BID 06/03/16 21:00 06/05/16 11:00 DC 06/05/16 07:54 50 MG Ciprofloxacin (Cipro) 250 mg Q12HR 06/05/16 09:00 06/08/16 08:43 250 MG Quetiapine Fumarate (Seroquel) 100 mg BID 06/05/16 21:00 06/08/16 08:43 100 MG Subjective Patient seen and chart reviewed. Case discussed with treatment team. Patient is initially seen sitting at table in dayroom with peer. He attempts to converse with me but mumbles so quietly that it is difficult for me to understand what he is saying. Last night, there was an incident where he became angry and paranoid re: staff stealing his things. He brings this up to me today , saying that "he screamed at several girls outside his door last night." He says that he does not want to talk about why. When asked if he was having any thoughts of hurting others, he said he didn't want to talk about it. Patient denies SI and says he wants to live so he can leave this hospital. Court hearing planned for 06/15/16 at this time and sample builder believes patient can participate at this point. SLUMS was 2 upon admission; will repeat today or tomorrow. Patient slept 5 hours overnight with a 45 minute nap this morning. Appetite is good. VSS. BUN, Cr slightly elevated from previous. Psychotropic PRNs required in the past 24 hours: Ativan 0.5mg PO yesterday at 1018 in the AM. Time of Service: 10:00 Start Time: 10:40 Stop Time: 11:00 Care >50% of this visit spent in counseling/coordination care. [facility] Exam Vitals Vital Signs Date Time Temp Pulse Resp B/P Pulse Ox O2 Delivery O2 Flow Rate FiO2 06/08/16 08:42 97.3 76 20 123/75 97 Room Air Physical examination performed by the hospitalist. Height (Feet): 5 Height (Inches): 9.00 Mental Status Exam Muscle Strength/Tone: Normal Dressing: Casual Grooming: Fair Attitude: Uncooperative, Guarded, Suspicious Motor Activity: Retardation Eye Contact: Poor Speech: Slowed Volume: Soft Rhythm: Mumbled Sensory: Alert Orientation: Disoriented to time, Disoriented to place, Disoriented to situation, Oriented to person Mood: Irritable Affect: Labile Rate of Thoughts: Delayed Thought Organization: Confused Associations: Illogical Abstract Reasoning: Poor abstract reasoning Thought Content: Paranoia Perception/Psychotic: Other (Not observed responding to internal stimuli though is paranoid) Attention Span/Concentration: Inattentive Language: Naming Intact Fund of Knowledge: Other (Decreased - SLUMS 2 upon admission) Memory: Poor-recent Suicidal Ideation: Denies Homicidal Ideation: Other (Refuses to answer) Insight: Impaired Judgment: Impaired Impulse Control: Poor Laboratory Tests Test 06/07/16 11:38 Turbidity < 20 Sodium Level 140MEQ/L Potassium Level 4.8MEQ/L Chloride Level 104MEQ/L Carbon Dioxide Level 26MEQ/L Anion Gap 10MEQ/L Blood Urea Nitrogen 46.0MG/DL Creatinine 2.6MG/DL Glomerular Filtration Rate Calc 25 BUN/Creatinine Ratio 18RATIO Glucose Level 79MG/DL Calculated Osmolality 280MOSM/KG Calcium Level 9.4MG/DL Icterus Index < 2 Chemistry Specimen Hemolysis < 15 Assessment and Plan (1) Schizophrenia Assessment: Admit patient to [facility] unit. Start Seroquel 25mg BID. Patient is also Keflex 500mg TID. 06/03/16: Increase Seroquel to 50mg BID: for psychosis 06/04/16 Continue current care 06/05/16 increase seroquel to 100mg po bid 06/06/16 Continue current care 06/07/16: Continue current care; will give PRN Ativan and see if patient allows blood work to be drawn today. 06/08/16: Increase Seroquel to 100mg PO q AM, 50mg PO daily at 1600 (patient becomes more agitated in evening), and 100mg PO q HS. Start Ativan 1mg PO q HS to target insomnia. Will consult ST for RIPPA and OT for KEITH. Will repeat SLUMS today or tomorrow. (2) Major neurocognitive disorder (3) CKD (chronic kidney disease), stage III (4) BPH (benign prostatic hypertrophy) Increase Seroquel to 100mg PO q AM, 50mg PO daily at 1600 (patient becomes more agitated in evening), and 100mg PO q HS. Start Ativan 1mg PO q HS to target insomnia. Will consult ST for RIPPA and OT for KEITH. Will repeat SLUMS today or tomorrow. BRYANT MATHEW MD Jun 08, 2016 10:19
[2016-06-08 16:58] VITALS: BP 133/74; PULSE 75; RESP 20; TEMP 98; O2SAT 97
--- NOTE | 2016-06-08 18:15 | NUR ---
summary pt has been irritable most of shift. calms and is pleasant for a while but becomes short with answers tone of voice changes. pt helps himself to the snacks in the fridge. does not redirect well, does not like to be told what he can or can't do. told this nurse " your a bitch" when i tried to explain to him that he needed to ask for assistance to get snacks. pt took sandwiches,juice and milk from fridge then threw the unopened sandwich in the trash. pt does take all medications this shift. only slept the 45 min this am. dosed off and on for a few minutes at a time. later in the afternoon pt walks jones several times going to the coordinators office which is closed.
[2016-06-08 19:51] VITALS: BP 137/73; PULSE 73; RESP 16; TEMP 98.3; O2SAT 97
[2016-06-08 20:07] VITALS: RESP 18
[2016-06-08] MEDS: LORAZEPAM 1 MG TABLET PO SCH (20:09)
[2016-06-08] MEDS: HALOPERIDOL 1 MG/0.5 ML ORAL LIQUID PO PRN (20:10)
[2016-06-08] MEDS: TAMSULOSIN 0.4 MG CAPSULE PO SCH (20:32)
--- NOTE | 2016-06-08 21:57 | NUR ---
SUMMARY PT HAS BEEN AGITATED SINCE SHIFT ONSET. HE LET RN PERFORM BASIC PHYSICAL ASSESSMENT BUT REFUSED TO ANSWER QUESTIONS. PT SAT IN THE CHAIR, WITH THE KUO OF HIS COAT PULLED OVER HIS HEAD, REFUSING TO INTERACT WITH ANYONE. HE TOOK ALL OF HIS MEDICATIONS EXCEPT FLOMAX. WHEN RN ATTEMPTED TO GIVE IT, HE TOLD HER TO "BUTT OUT" AND "YOU'RE JUST DOING WHAT I DON'T WANT YOU TO DO." RN ATTEMPTED TO GIVE PT A PRN DOSE OF PO IN BOTTLED WATER BUT PT REFUSED TO TAKE IT. WHEN STAFF ATTEMPTED TO QUESTION HIM ON HIS BEHAVIORS, HE REFUSED TO LOOK AT/ ACKNOWLEDGE STAFF. PT THEN WENT TO BED AND IS CURRENTLY IN BED.
--- NOTE | 2016-06-09 06:20 | NUR ---
Bedtime 0115 Awake 0545 Sleep Time 4.5 hours. No sleep time during days.
--- NOTE | 2016-06-09 06:20 | NUR ---
Chart Check 24 hour chart check completed
[2016-06-09] MEDS: CIPROFLOXACIN 250 MG TABLET PO SCH ×2 (08:31→19:53)
[2016-06-09] MEDS: QUETIAPINE 100 MG TABLET PO SCH ×4 (08:32→19:54)
--- NOTE | 2016-06-09 08:34 | NUR ---
Summary Pt. is in his room on approach. Pt. does not want anyone in his room and yells at staff to "Get out." Pt. is left alone and self calms. Pt. sets off the bed alarm due to incontinence. Pt. needs time (approximately an 1-1 1/2 hrs) and reassuring to finally allow staff to assist with changing his clothes and removing his personal items from his room. Pt. thinks staff is stealing his belongings and with reassurance allows staff to lock up items. Pt. is redirected back to bed without difficulty. Pt. awakens later in the shift, staff asks what woke pt. and he said "bad memories" but refused to talk about it. Pt. becomes upset when staff assists pt. back to bed and attempts to cover pt. up with a blanket. Pt. jumps out of bed and starts yelling for staff to get out of his room. This RN comes into pt. room and pt. asks that the other staff member be removed and shakes my hand saying, "You're nice, this one isn't." Pt. paces outside of his room for a short time then returns to his room and self calms after being left alone. Pt. does not become physically aggressive but is verbally aggressive. No prn medications given.
[2016-06-09 09:05] VITALS: RESP 16
--- NOTE | 2016-06-09 11:08 | NUR ---
WET PAN MIXER--AM GROUP Pt. was present but slept in the recliner for most of the psychoeducational group facilitated by [facility].
[2016-06-09 11:45] VITALS: BP 125/70; PULSE 66; RESP 18; TEMP 98.4; O2SAT 96
--- NOTE | 2016-06-09 12:22 | GENPN ---
[facility] Subjective Date DATE: 06/09/16 TIME: : Subjective/Severity of Illness Medications Current Medications Medications (Trade) Dose Ordered Sig/Tiff Start Time Stop Time Status Last Admin Dose Admin Miscellaneous Medication (May use PRN orders) 1 PRN PRN 06/01/16 22:45 Haloperidol (Haldol) 0.5 mg Q6H PRN 06/01/16 21:40 Lorazepam (Ativan) 0.5 mg Q6H PRN 06/01/16 21:40 06/08/16 13:43 0.5 MG Lorazepam (Ativan) 0.5 mg Q6H PRN 06/01/16 21:40 06/03/16 09:49 0.5 MG Haloperidol Lactate (Haldol 5 Mg/ml Inj) 0.5 mg Q6H PRN 06/01/16 21:40 06/03/16 09:49 0.5 MG Lorazepam (Ativan Intensol) 0.5 mg Q6H PRN 06/01/16 21:40 06/02/16 20:02 0.5 MG Haloperidol (Haldol Liquid) 0.5 mg Q6H PRN 06/01/16 21:40 06/08/16 20:10 0.5 MG Tamsulosin HCl (FLOMAX 0.4 mg) 0.4 mg HS 06/02/16 21:00 06/08/16 20:32 0.4 MG HCTZ/Lisinopril (Prinzide ) 1 tab DAILY 06/03/16 09:00 Future Hold 06/07/16 08:44 1 TAB Cephalexin HCl (Keflex) 500 mg Q8HR 06/02/16 17:00 06/04/16 10:35 DC 06/04/16 07:45 500 MG Quetiapine Fumarate (Seroquel) 25 mg BID 06/02/16 21:00 06/03/16 18:50 DC 06/03/16 08:08 25 MG Quetiapine Fumarate (Seroquel) 50 mg BID 06/03/16 21:00 06/05/16 11:00 DC 06/05/16 07:54 50 MG Ciprofloxacin (Cipro) 250 mg Q12HR 06/05/16 09:00 06/09/16 08:31 250 MG Quetiapine Fumarate (Seroquel) 100 mg BID 06/05/16 21:00 06/09/16 08:32 100 MG Quetiapine Fumarate (Seroquel) 50 mg 16 06/08/16 16:00 06/08/16 13:43 50 MG Lorazepam (Ativan) 1 mg HS 06/08/16 21:00 06/08/16 20:09 1 MG Subjective Patient seen and chart reviewed. Case discussed with treatment team. Patient is sleeping during AM rounds as he only slept ~4.5 hours overnight. Per staff, he has continued to exhibit significant behavioral difficulties on the unit and got in a verbal altercation with another male patient yesterday. He continues to refuse labs. He continues to exhibit paranoia with staff. KEITH completed yesterday - 24 hour supervision recommended and assistance with all meds, finances and transportation. Patient was given PRN Ativan at 1351 yesterday. Appetite is good. VSS. Time of Service: 10:00 Start Time: 10:20 Stop Time: 10:40 Care >50% of this visit spent in counseling/coordination care. [facility] Exam Vitals Vital Signs Date Time Temp Pulse Resp B/P Pulse Ox O2 Delivery O2 Flow Rate FiO2 06/09/16 11:45 98.4 66 18 125/70 96 Room Air Physical examination performed by the hospitalist. Height (Feet): 5 Height (Inches): 9.00 Mental Status Exam Muscle Strength/Tone: Normal Dressing: Casual Grooming: Poor Attitude: Uncooperative Motor Activity: Retardation Eye Contact: Fair Speech: Normal Volume: Soft Rhythm: Mumbled Sensory: Other (Currently sleeping) Orientation: Disoriented to time, Disoriented to situation, Oriented to person Mood: Irritable Affect: Labile Rate of Thoughts: Delayed Thought Organization: Confused Associations: Illogical Abstract Reasoning: Poor abstract reasoning Thought Content: Paranoia Perception/Psychotic: Perception Normal Attention Span/Concentration: Short Span Fund of Knowledge: Other (Decreased) Memory: Poor-recent Suicidal Ideation: None Homicidal Ideation: None Insight: Impaired Judgment: Impaired Impulse Control: Poor Assessment and Plan (1) Schizophrenia Assessment: Admit patient to [facility] unit. Start Seroquel 25mg BID. Patient is also Keflex 500mg TID. 06/03/16: Increase Seroquel to 50mg BID: for psychosis 4/7/17 Continue current care 06/05/16 increase seroquel to 100mg po bid 06/06/16 Continue current care 06/07/16: Continue current care; will give PRN Ativan and see if patient allows blood work to be drawn today. 06/08/16: Increase Seroquel to 100mg PO q AM, 50mg PO daily at 1600 (patient becomes more agitated in evening), and 100mg PO q HS. Start Ativan 1mg PO q HS to target insomnia. Will consult ST for RIPPA and OT for KEITH. Will repeat SLUMS today or tomorrow. 06/09/16: Change Seroquel dose to 100mg PO TID (AM, 1500, HS). Will write order for PRN Ativan prior to lab draw. (2) Major neurocognitive disorder (3) CKD (chronic kidney disease), stage III (4) BPH (benign prostatic hypertrophy) Change Seroquel dose to 100mg PO TID (AM, 1500, HS). Will write order for PRN Ativan prior to lab draw. BRYANT MATHEW MD Jun 09, 2016 12:20
[2016-06-09] MEDS ORDERED: LORAZEPAM 1 MG TABLET PO PRN (12:30)
--- NOTE | 2016-06-09 14:36 | NUR ---
ROBERT JONES SPOKE WITH SONAM FROM [facility]. SONAM IS AWARE OF GUARDIANSHIP HEARING ON 06/15/16. SONAM ANS ROBERT DISCUSSED SOME POSSIBLE OUTCOMES FOR PT. SONAM WILL CONTACT ROBERT WHEN MORE INFORMATION IS AVAILABLE.
--- NOTE | 2016-06-09 14:46 | NUR ---
MID SHIFT SUMMARY PT IS ORIENTED TO SELF. PT HAS BEEN COMPLIANT TODAY WITH MEDICATIONS. PT REFUSED HIS LABS BUT HAS BEEN COMPLIANT WITH ALL OTHER CARES. PT REMAINS SUSPICIOUS. PT STATED HE BELIEVES WE ARE TRYING TO "LOCK HIM IN HIS ROOM". PT HAS EATEN WELL AND HAS HAD NO BEHAVIORS THAT REQUIRE ANY PRN MEDICATION.
--- NOTE | 2016-06-09 14:59 | STEVAL ---
Eval Subjective and History Date/Time of Eval DATE: 06/09/16 TIME: 13:55 Medical Diagnosis Schizophrenia with behavioral issues. Treatment Order: Assessment Orientations: Alert, Cooperative (confused) Primary Complaint: Signiificant behavioral issues with agitation Pain: No Date of Onset of Primary Com: referral 06/08/16 Patient's Goals: Pt wanted to go home. Significant Past Medical Hx: Schizophrenia, dementia, thn, CKD, Urinary incontinence, normocytic anemia, BPH, behavioral issues. Homeless at time of admission. Medical History Form Reviewed: Yes Residence Type: Homeless Lives With: Alone Prior Functional Status: Pt reported that he was living on the porch of a buddhist. Current Functional Status: Confused with difficulty maintaining attention to task. Education Subject: Treatment Plan Person(s) Educated: Patient Education Comment AIRCRAFT ENGINE DISMANTLER educated patient on reasoning for evaluation. Patient was agreeable to evaluation but did not express understanding of assessment. Subjective and History Comment: Pt was alert, very distracted and confused. He demonstrated a pattern of confabulation on most responses. He was agreeable to talk with AIRCRAFT ENGINE DISMANTLER but declined most of the subtests. Pt reported that he would visit with AIRCRAFT ENGINE DISMANTLER tomorrow. Cognition Answer yes/no questions: Yes Identifies a problem exists: No Identifies causes to situation: No Problem Solving Comments Pt formulated partial responses to problem solving questions inconsistently. Expression Assessment Method: Verbal Expression Abilities: Social speech, Formulates Sentences, Basic Conversation ( very distracted and off topic) % Words Intelligible: 90 % Sentence Intelligible: 80 % Conversation Intelligible: 80 Voice Quality: Reduced breath support (soft and rapid) Expression Comment: Pt formulated sentences to express his needs. Topic is fragmented and confabulatory. Max cue needed to maintain topic. Assessment/Plan of Care Speech Therapy Impressions: RIPA initiated with a portion of immediate memory and problem solving completed. Pt tended to jump from topic to topic in his own story rather than answering question. Two episodes of mild agitation/paranoia noted but no behavioral episodes. AIRCRAFT ENGINE DISMANTLER will attempt to complete evaluation on 01/10/17. ST Treatment Plan: Evaluation Only ST Treatment Plan Frequency: N/A Treatment Plan Duration: N/A Plan of Care Comment Full report to follow when assessment is completed. Date of Visit 06/09/16 Time Visit Began: 11:30 Time Visit Ended: 12:20 ST Assess/Plan of Care: ST Treatment Charge: Speech Eval Minutes of Individual Therapy: 50 ANTHONY CONTRERAS MS CCC-AIRCRAFT ENGINE DISMANTLER Jun 09, 2016 13:57
--- NOTE | 2016-06-09 15:00 | NUR ---
DRIVING TEACHER--PM GROUP Pt. participated in psychoeducational group facilitated by [facility]. Topic was on importance of using all their skills, including their thinking skills. Encouraged participants to try, at whatever level they are able, to participate in activities in their living community. Pt. was alert, OX1, with dysthymic mood and affect. Participants were asked several questions and given opportunity to provide variety of answers. Pt. was reluctant to participate. With encouragement, he did answer a few of the questions. He sat in recliner and appeared to close his eyes and relax for a short time.
--- NOTE | 2016-06-09 16:20 | NUR ---
STAFF ELECTRICAL ENGINEER--INDIVIDUAL Pt. came into office after group because he wanted to talk. He does not understand the purpose of his upcoming hearing. This SW tried to explain to him the reason for the Guardianship hearing. Pt. frequently needs reminders about the name of the town he is currently in. He knows he is in the hospital. He had a card with the name, "Dk Espinal", on it. He did not remember who that person was despite spending long periods of time with him yesterday and earlier today. Pt. made statement that he doesn't need any help managing his affairs but he cannot tell this SW which bank his money is in. He states he has accounts in multiple [place] and can go to any bank in [place] or [place] and get his money out. He asked this SW to go to a bank in [place] to get him some crespo out. While Marbin was visiting in office, Per Hanna--DCF worker called. She wanted to discuss transportation options for pt. to the hearing. She is going to try and use [employer]. She mentioned that the patient's wheel polisher thinks that pt. does not need a legal guardian and wants him at the hearing. DCF worker is requesting any documentation from hospital stay that would demonstrate severity of patient's cognitive impairment. This SW will check with Tootie Ospina regarding what information can be shared. Pt. was shown calendar with date of hearing highlighted. Counted days with pt. until his hearing. Explained to pt. that his senior attorney would work with him in the court process to help demonstrate whether or not he needed a legal guardian. Pt. agreed to continue talking with this SW tomorrow.
--- NOTE | 2016-06-09 17:32 | PNPDOC ---
Subjective Date DATE: 06/09/16 TIME: 17:28 Subjective Marbin is seen today in follow up while laying in bed. He is alert . During my examination, however. Nursing staff does report increase behaviors. This afternoon. Reported. Patient is significantly suspicious and feels that he has been locked in his room. Is reported that patient has been upset regarding a court hearing in regards to his guardianship. Vital signs remained stable. Patient denies having pain or feeling short of breath. Did refuse lab draw today. Objective Vital Signs Vital signs Vital Signs Date Time Temp Pulse Resp B/P Pulse Ox O2 Delivery O2 Flow Rate FiO2 06/09/16 11:45 98.4 66 18 125/70 96 Room Air Height (Feet): 5 Height (Inches): 9.00 Weight (Kilograms): 80.100 General General Appearance: Alert, Orientated x 2, Cooperative, No Acute Distress Eyes (Brief) Eyes: FOUND: EOMI ENMT (Brief) ENMT: FOUND: mucosa moist, normal dentition, NOT FOUND: pharnyx erythema Neck (Brief) Neck: FOUND: midline, NOT FOUND: adenopathy, carotid bruits, tracheal deviation Respiratory (Brief) Respiratory: FOUND: clear all bolanos, equal bilaterally, NOT FOUND: wheezes Cardiovascular (Brief) Cardiac: FOUND: regular rate, regular rhythm, NOT FOUND: murmur, pedal edema Capillary Refill: <2 sec Abdomen (Brief) Abdominal: FOUND: BS normo active x4, soft, NOT FOUND: distended, tender Lymphatic (Brief) Lymphatic: NOT FOUND: adenopathy Musculoskeletal (Brief) Musculoskeletal: NOT FOUND: tenderness Integumentary (Brief) Integumentary: FOUND: dry, pink, warm Neurologic (Brief) Neurological: FOUND: cranial 2-12 intact Psychiatric (Brief) Psychiatric: FOUND: alert, attentive, normal affect, oriented Assessment & Plan Problems: (1) UTI (urinary tract infection) Status: Acute Assessment & Plan: MICROBIOLOGY URINE CULTURE. Final 06/04/16 Organism 1 MORGANELLA MORGANII SSP BRENDON COLONY COUNT >100,000 CFU/ml Organism 2 ENTEROCOC FAECALIS - (GROUP D) COLONY COUNT >100,000 CFU/ml M MORGANII E FAECA(D) INTERP JAYA INTERP JAYA ------ --------- ------ --------- AMOX/CLAV ACID R AMPICILLIN R S <=2 CEFAZOLIN R CEFEPIME S <=1 CEFTAZIDIME S <=1 CEFTRIAXONE S <=1 CIPROFLOXACIN S <=0.25 S <=0.5 DOXYCYCLINE S <=0.5 ERTAPENEM S <=0.5 GENTAMICIN S <=1 LEVOFLOXACIN S <=0.12 S 0.5 LINEZOLID S 1 NITROFURANTOIN R 128 S <=16 TETRACYCLINE S <=1 TOBRAMYCIN S <=1 TRIMETH/SULFA S <=20 PIPERACILL/TAZO S <=4 VANCOMYCIN S 1 (2) Dementia Status: Chronic Qualifiers: Dementia type: unspecified type Dementia behavioral disturbance: without behavioral disturbance Qualified Codes: F03.90 - Unspecified dementia without behavioral disturbance (3) Schizophrenia (4) HTN (hypertension) Status: Chronic (5) Urinary incontinence Status: Chronic Qualifiers: Urinary Incontinence type: unspecified incontinence Qualified Codes: R32 - Unspecified urinary incontinence (6) CKD (chronic kidney disease), stage III Status: Chronic (7) Normocytic anemia Status: Chronic (8) BPH (benign prostatic hypertrophy) Status: Chronic Plan/Intensity of Service 06/09/16 Continue for urinary tract infection treatment with Cipro. End date 06/11 Patient refused lab draw today. Will again attempt to check a BMP tomorrow morning to follow chronic kidney disease. BP well controlled, continue on Prinzide In today with psychiatric care as per Dr. Clark Code Status Full Code, unverified Hospital Course Summary Disclaimer The hospital course summary below is not to be considered part of the above Progress Note. Hospital Course Summary 06/02/[address] [facility]. UTI - Keflex started. Early growth noted on culture. VC records reviewed Cr ranged from 2-2.6 while hospitalized. He underwent TURP for b/l hydronephrosis. DC'd with these medications: Lisinopril/HCTZ 20/25, Flomax, Seroquel 50 mg BID and 100 mg HS, Aricept 10 mg HS Resume Lisinopril/HCTZ, Flomax. Consider Clonidine PRN or BB if BP does not show good improvement. CKD - recheck BMP in am. Schizophrenia/dementia - per attending. 06/04/16 Reviewed urine culture reveling Morganella Morganii and Entercoc Faecalis which is susceptible to Cipro. Did discuss dosing with pharmacy given CKD. Will given Cipro 500nmg PO now and continue 25mg BID x7 days. Discontinued Keflex Continue to monitor renal function. Will recheck BMP Wednesday 06/07. It is known that baseline creatinine is 2-2.3. Monitor blood pressure and continue on current regimen including Prinzide 20/25 daily Continue to encourage returns today unit activities 06/07/16 Dual organism UTI - cont. Cipro. Repeat BMP today to f/u on renal function. BP controlled on Prinzide. Psychiatric progress notes reviewed - Seroquel recently increased. DELMA KOENIG APRN Jun 09, 2016 17:32
--- NOTE | 2016-06-09 18:51 | NUR ---
SHIFT SUMMARY SEE PRIOR NOTE. PT GETS AGITATED ABOUT 1500 AND TODAY WAS THE SAME. PT SPOKE WITH JACK AND GONZALEZ FOR ABOUT 45 MIN PT THINKS HE IS BEING POISONED AND LOCKED IN HIS ROOM. PT PACES IN DECKER AND WILL NOT ALLOW STAFF TO COME NEAR HIM. PT REFUSED HIS AFTERNOON MED AND LABS (THERE WERE TWO ATTEMPTS MADE.) PT CALMED DOWN AND ATE DINNER BUT HE WILL TURN AND TRY TO STARE DOWN STAFF HE BELIEVES ARE FOLLOWING HIM. PT SLEPT, FROM MIDNIGHT TO END OF THIS SHIFT A TOTAL OF 4.25 HOURS.
[2016-06-09] MEDS: TAMSULOSIN 0.4 MG CAPSULE PO SCH (19:53)
[2016-06-09] MEDS: LORAZEPAM 1 MG TABLET PO SCH (19:53)
[2016-06-09 20:42] LABS: ANION GAP 17 MEQ/L (5-15); BUN/CREATININE RATIO 21 RATIO (6-26); CALCIUM 8.7 MG/DL (8.4-10.2); CHLORIDE 101 MEQ/L (98-107); CO2 - CARBON DIOXIDE 23 MEQ/L (22-30); CREATININE 2.4 MG/DL (0.8-1.5); GLOMERULAR FILTRATION RATE 27; GLUCOSE 172 MG/DL (75-110); POTASSIUM 4.3 MEQ/L (3.6-5); SODIUM 141 MEQ/L (134-144)
--- NOTE | 2016-06-09 21:15 | NUR ---
Critical lab value Lab called at 2058, stated pt BUN lab value was at critical level at 51. Text Telehospitalist Dr Samson at 2104. Dr Samson returned phone call at 2108. Dr Samson looked over the other values and stated to continue to monitor the BUN at this time. No orders given at this time. Will continue to monitor
[2016-06-09 21:29] VITALS: BP 135/73; PULSE 67; RESP 20; TEMP 99.2; O2SAT 96
[2016-06-09 21:51] VITALS: PULSE 67; RESP 20
--- NOTE | 2016-06-10 00:13 | NUR ---
Mid shift status Pt was lying in his bed at beginning of shift. Pt is pleasant and cooperative with assessment. Allowed vitals to be obtained. Alert to person. Up ad sherine with BRP. Pt has not displayed any agitation or behaviors this shift. He has not been verbally or physically aggressive. Pt compliant with all HS meds, taking whole without difficulty. Pt allowed this nurse to take his basket of dirty clothes to go wash them. I assured him he would have them back by morning to be able to get dressed. Pt was cooperative. After visiting with pt for a while, I encouraged him to allow labs to come down to draw blood. Explained to pt why the doctor ordered the labs. Also assured pt I would be in the room with him when lab comes in. Pt asked "you will be in here with me?". He then agreed to allow labs to come and get a draw. When laboratory phlebotomist entered room, I was with her, and then sat next to pt during procedure. Pt remained calm and tolerated well. Explained to pt his cooperation was appreciated. Gave pt a chocolate for being so cooperative. Pt was content at that time. Pt was appreciative. Pt did however refuse to shower this shift, as he was already in bed. No PRNs given this shift. Pt fell to sleep at 2230 this shift is currently still sleeping at this time. Bed rails up x 2 and alarm on. Will continue to monitor
--- NOTE | 2016-06-10 00:30 | NUR ---
Chart Check 24 hour chart check completed
--- NOTE | 2016-06-10 00:30 | NUR ---
Bed time Pt fell to sleep at 2230. Continues to sleep at this time. Bed rails up x 2 and alarm on.
--- NOTE | 2016-06-10 06:07 | NUR ---
Summary Pt woke at 0550. Upon entering pt room, he was incontinent and bed was saturated. Provided pt with clean clothes and briefs and he changed himself in BR. Bed linens changed. When pt came out of BR, he could not find his shoes and he became agitated and angry, accusing the staff of stealing his shoes. Pt continued to have increased anger, calling the MINE CAR REPAIRER and RN whores and bitches. Explained to pt the name calling is not appropriate and will not be tolerated. Pt did not seem to care as he stated "well that's what they are! And I don't want that bitch coming back in my room for nothing!" Continued to speak calmly with pt and tried to explain that no one is stealing anything from him and that the MINE CAR REPAIRER went to get his shoes. Went on to explain we all work together and I will not have him calling anyone names. Pt stated he will start sleeping in his shoes from now on so we can't steal them from him. Shortly after, pt went into day room and began harassing the MINE CAR REPAIRER once again, calling her names and cursing her for stealing his shoes. MINE CAR REPAIRER was firm with pt and asked him to go back to his room due to his behavior. Pt then walked down to the nurses station, saying "I am pissed, she took my shoes and I want to know why!". It was again explained to pt how it was a mistake, that his shoes were picked up on accident with his sheets. Pt refused to believe the explanation at first, but then eventually he did. He stated he was still mad and did not want any of those girls coming into his place ever again. Told pt he is still in hospital and pt looked confused. He then demanded "Just kick me out of this damn place then, do it, NOW! I don't want to be in here!". Another RN was then trying to talk with him and he asked if she was with that "other gal", then raised his voice at her. She told him he needed to get back to his room. He refused at first, but after talking with him calmly, pt agreed to go back to his room. Pt did not become physically aggressive at this time, only verbally aggressive. Still no PRNs given. Pt is currently laying back in his bed. Pt woke at 0550 sleeping a total of approximately 7.5 hours. Will continue to monitor
[2016-06-10 08:00] VITALS: BP 135/77; PULSE 76; RESP 16; TEMP 97.6; O2SAT 95
[2016-06-10] MEDS: CIPROFLOXACIN 250 MG TABLET PO SCH ×2 (10:01→22:00)
--- NOTE | 2016-06-10 10:15 | NUR ---
MOLECULAR BIOLOGY DIRECTOR--AM GROUP Pt. was sleeping in his room during AM psychoeducational group [facility]
[2016-06-10] MEDS: QUETIAPINE 100 MG TABLET PO SCH ×2 (13:06→22:00)
--- NOTE | 2016-06-10 13:17 | NUR ---
RECOVERY ROOM RN--INDIVIDUAL LSCSW met 1:1 with pt. to discuss current treatment and to discuss potential discharge plans. Dr. Clark had just talked with Marbin about her order for EKG and pt. was confused. This SW explained importance of monitoring condition of his heart because of the medications he is on. Pt. was reassured that needles would not be used for the EKG. This SW advised pt. that part of his discharge plan would include f.u. appointments with his PCP and with a mental health provider. Pt. insisted he did not see any need for f.u. appointments. This SW explained that because he has been diagnosed with CKD and because it is important that a physician monitor his blood work, he would need to see his doctor on regular basis. This SW stressed importance of pt. drinking his bottled water on daily basis. Pt. was asked to consider where he planned on living once he is discharged from the hospital. Pt. admitted he was homeless and wasn't sure what he would do. He stated he might consider a homeless group home but NOT in [place]. He wasn't sure if he would be able to stay on the back porch of the [facility] in [place]. Cautioned pt. about risk of becoming de-hydrated during the upcoming hot summer months and potential health risks. This SW talked with pt. about purpose of upcoming Guardianship hearing. He was advised that bowling or skating front desk clerk might say he does not need anyone helping him or he might appoint someone to be his legal guardian. Explained that legal guardian would manage his financial and health care affairs while still being accountable to the court. Pt. asked if he would have to live in a skilled nursing. This SW advised pt. that a skilled nursing placement might be the recommendation. Pt. asked which skilled nursing and this SW advised pt. that no skilled nursing had been selected. Pt. stated he would consider moving to a skilled nursing if he could remain in [place] or [place]. Pt. did admit he wasn't sure if he would be able to continue living on the street and thought he might need some help. Pt. remained calm and spoke in soft voice for entire conversation. He is easily confused and needs things repeated multiple times. He often has problems with word retrieval. He agreed to think about what he feels he needs to be successful and safe once he leaves the hospital.
--- NOTE | 2016-06-10 14:00 | NUR ---
STATUS/PRN/PRN follow up Patient has been pleasant, cooperative with assessment, compliant with medications, He was in a happy mood when he woke up, he ate all his breakfast and lunch, Patient denies any pain at the moment. Patient got a PRN medication Ativan 1 mg po PRN at around 1300 before procedure, patient was going to get an EKG done, PRN was given before EKG, when lab staff arrived patient allow staff to do EKG, patient was calm and follow commands. He did not appeared anxious during procedure, PRN medications was effective. Patient did not had any inappropriate behavior this morning. Patient denies needs or concerns at the moment.
--- NOTE | 2016-06-10 14:46 | STDAILYN ---
ST Daily Note Date/Time DATE: 06/10/16 TIME: 14:30 Subjective Comment Marbin was sitting in his room watching the birds from his window. He was calm and open to have SPECTRAL SCIENTIST visit with him. No complaint of pain. Pt demonstrated less confabulation today but word finding errors were increased. Chief Complaint: schizophrenia with behavioral disorders. Pain: No *Speech Therapy Impressions Portions of the Ross Information Processing Assessment were administered. Pt demonstrated ability to repeat sequence of 3 numbers accurately. He was oriented to season and month but not year an exact date. He answered all questions on subtest VII. Recall of General Information 40%, Problem Solving/ Abstract Reasoning 64% and Auditory Processing/Retention 2%. Pt was easily distracted from topic but cooperative on all tasks. He may benefit from a structured setting with medication assistance and meals provided. ST Treatment Plan: N/A ST Treatment Plan Frequency: N/A Treatment Plan Duration: N/A Plan of Care Comment: Pt was seen for evaluation on 06/09 and 06/10. Start Treatment 1: 13:00 Stop Treatment 1: 13:35 Treatment Duration : ST Treatment Charge: Speech Treatment (complete RIPA) Minutes of Individual Therapy: 35 ANTHONY CONTRERAS MS CCC-SPECTRAL SCIENTIST Jun 10, 2016 14:44
[2016-06-10 16:00] VITALS: BP 152/102; PULSE 80; RESP 16; TEMP 98.4; O2SAT 96
--- NOTE | 2016-06-10 16:11 | NUR ---
WAKE UP NOTE PATIENT WENT TO SLEEP AT 2230 THEN WOKE UP AT 0550 AND WENT BACK TO SLEEP AND WOKE UP AT 0945
--- NOTE | 2016-06-10 18:08 | NUR ---
SHIFT SUMMARY Patient was pleasant this morning, he was complaint with medications, cooperative with cares, got PRN ativan 1 mg PRN po around 1300 before EKG, (see Status/PRN note) patient did well during EKG he allow staff to do EKG with out any problems. PRN medications was effective. Patient has eating all his meals, sometimes he will request extra food or snacks he also open the fridge on his own and gets several snacks at the same time. Patient started getting restless and verbally aggressive around 1730 this evening, he was pacing down the jones way, he was looking for his clothes, he said someone stole it. Patient continues to be suspicious of staff at times. He is difficult to redirect when he gets verbally aggressive or anxious. Flat affect, steady gait, he is up ad sherine and ambulates independently. Patient slept 0.25 hr this shift. Patient denies needs or concerns at the moment, he s currently siting in the day room watching TV, staff is near by.
[2016-06-10 20:00] VITALS: BP_SYST 154; BP_DIAS 52; BP_DIAS 82; PULSE 65; RESP 18; RESP 65; TEMP 99.2; O2SAT 96
[2016-06-10 20:36] VITALS: PULSE 65; RESP 18
--- NOTE | 2016-06-10 20:42 | GENPN ---
[facility] Subjective Date DATE: 06/10/16 TIME: 20:35 Subjective/Severity of Illness Medications Current Medications Medications (Trade) Dose Ordered Sig/Tiff Start Time Stop Time Status Last Admin Dose Admin Miscellaneous Medication (May use PRN orders) 1 PRN PRN 06/01/16 22:45 Haloperidol (Haldol) 0.5 mg Q6H PRN 06/01/16 21:40 Lorazepam (Ativan) 0.5 mg Q6H PRN 06/01/16 21:40 06/08/16 13:43 0.5 MG Lorazepam (Ativan) 0.5 mg Q6H PRN 06/01/16 21:40 06/03/16 09:49 0.5 MG Haloperidol Lactate (Haldol 5 Mg/ml Inj) 0.5 mg Q6H PRN 06/01/16 21:40 06/03/16 09:49 0.5 MG Lorazepam (Ativan Intensol) 0.5 mg Q6H PRN 06/01/16 21:40 06/02/16 20:02 0.5 MG Haloperidol (Haldol Liquid) 0.5 mg Q6H PRN 06/01/16 21:40 06/08/16 20:10 0.5 MG Tamsulosin HCl (FLOMAX 0.4 mg) 0.4 mg HS 06/02/16 21:00 06/09/16 19:53 0.4 MG HCTZ/Lisinopril (Prinzide ) 1 tab DAILY 06/03/16 09:00 Future Hold 06/07/16 08:44 1 TAB Cephalexin HCl (Keflex) 500 mg Q8HR 06/02/16 17:00 06/04/16 10:35 DC 06/04/16 07:45 500 MG Quetiapine Fumarate (Seroquel) 25 mg BID 06/02/16 21:00 06/03/16 18:50 DC 06/03/16 08:08 25 MG Quetiapine Fumarate (Seroquel) 50 mg BID 06/03/16 21:00 06/05/16 11:00 DC 06/05/16 07:54 50 MG Ciprofloxacin (Cipro) 250 mg Q12HR 06/05/16 09:00 06/09/16 17:33 DC 06/09/16 08:31 250 MG Quetiapine Fumarate (Seroquel) 100 mg BID 06/05/16 21:00 06/09/16 12:23 DC 06/09/16 08:32 100 MG Quetiapine Fumarate (Seroquel) 50 mg 16 06/08/16 16:00 06/09/16 12:23 DC 06/08/16 13:43 50 MG Lorazepam (Ativan) 1 mg HS 06/08/16 21:00 06/09/16 19:53 1 MG Quetiapine Fumarate (Seroquel) 100 mg 08,15,06/09/16 15:00 06/10/16 10:53 DC 06/09/16 19:54 100 MG Lorazepam (Ativan) 1 mg DAILY PRN 06/09/16 12:30 06/10/16 13:06 1 MG Ciprofloxacin (Cipro) 250 mg Q12HR 06/09/16 21:00 06/11/16 09:00 06/10/16 10:01 250 MG Quetiapine Fumarate (Seroquel) 100 mg ,,06/10/16 13:00 06/10/16 13:06 100 MG Subjective Patient seen and chart reviewed. Case discussed with treatment team. Patient is cooperative and relatively pleasant through interview with me this morning. I tried to talk to him about his medications, health conditions, etc. and he is agreeable but frequently says that he doesn't remember anything about that. He agreed to an EKG later today to monitor QTc. Per staff, he continues to have episodic agitation in the afternoons (~1300 yesterday). This morning, he was incontinent and was very upset that his belongings had been taken to laundry. He can be suspicious of staff at times and is difficult to redirect. KEITH completed 06/08/16 - 24 hour supervision recommended and assistance with all meds , finances and transportation. No PRNs given in the past 24 hours. Appetite is good. VSS. Time of Service: 10:00 Start Time: 11:20 Stop Time: 11:40 Care >50% of this visit spent in counseling/coordination care. [facility] Exam Vitals Vital Signs Date Time Temp Pulse Resp B/P Pulse Ox O2 Delivery O2 Flow Rate FiO2 06/10/16 20:00 99.2 65 154/52 96 Room Air 06/10/16 16:00 80 Physical examination performed by the hospitalist. Height (Feet): 5 Height (Inches): 9.00 Mental Status Exam Muscle Strength/Tone: Normal Dressing: Casual Grooming: Fair Attitude: Uncooperative (improving) Motor Activity: Normal Eye Contact: Good Speech: Normal Volume: Normal Rhythm: Appropriate Rhythm Sensory: Alert Orientation: Disoriented to time, Oriented to person, Oriented to place Mood: Neutral Affect: Labile Rate of Thoughts: Delayed Thought Organization: [place] Associations: Intact Abstract Reasoning: Poor abstract reasoning Computation: Poor Computation Thought Content: Paranoia Perception/Psychotic: Perception Normal Attention Span/Concentration: Distractable Language: Naming Intact Fund of Knowledge: Other (Decreased) Suicidal Ideation: Denies Homicidal Ideation: Denies Insight: Limited Judgment: Limited Impulse Control: Poor Assessment and Plan (1) Schizophrenia Assessment: Admit patient to [facility] unit. Start Seroquel 25mg BID. Patient is also Keflex 500mg TID. 06/03/16: Increase Seroquel to 50mg BID: for psychosis 06/04/16 Continue current care 06/05/16 increase seroquel to 100mg po bid 06/06/16 Continue current care 06/07/16: Continue current care; will give PRN Ativan and see if patient allows blood work to be drawn today. 06/08/16: Increase Seroquel to 100mg PO q AM, 50mg PO daily at 1600 (patient becomes more agitated in evening), and 100mg PO q HS. Start Ativan 1mg PO q HS to target insomnia. Will consult ST for RIPPA and OT for KEITH. Will repeat SLUMS today or tomorrow. 06/09/16: Change Seroquel dose to 100mg PO TID (AM, 1500, HS). Will write order for PRN Ativan prior to lab draw. 06/10/16: Continue Seroquel 100mg PO TID but move afternoon dose to 1300. Order EKG for today to monitor QTc due to patient taking Seroquel as well as Ciprofloxacin. (2) Major neurocognitive disorder (3) CKD (chronic kidney disease), stage III (4) BPH (benign prostatic hypertrophy) Continue Seroquel 100mg PO TID but move afternoon dose to 1300. Order EKG for today to monitor QTc due to patient taking Seroquel as well as Ciprofloxacin. BRYANT MATHEW MD Jun 10, 2016 20:39
[2016-06-10] MEDS: TAMSULOSIN 0.4 MG CAPSULE PO SCH (22:00)
[2016-06-10] MEDS: LORAZEPAM 1 MG TABLET PO SCH (22:00)
--- NOTE | 2016-06-10 23:59 | NUR ---
Status Pt. is sitting in the dayroom on approach. Pt. is quietly watching tv. Pt. tells this RN, "I'm not happy" but does not explain further. Pt. has inappropriate responses to questions, for instance, pt. is asked if he had a bowel movement and pt states, "1 minute after I poop." Pt. is asked if he hurts anywhere and he states, "I never hurt, only when I want to remember." Pt. initially refused HS medications but with time and approach by different staff pt. does take meds whole without difficulty. Pt. is seen walking the jones towards Nurse skilled nursing case manager's office. Pt. places his empty water bottle on the door knob of the office. Pt. then tries to pickle pumper jeans from another patient's laundry basket and take them. Pt. does put them back when staff intervenes. Pt. asks where the door is to get out but does not actively try to exit seek by going to the exit doors. Pt. is redirected. Pt. is incontinent of urine and allows staff to take his clothing to wash without complaint. Pt. also takes a shower with set up assistance. Pt. does talk about people stealing his things for just a few minutes but then moves on to different topics. Pt. is now resting in bed.
--- NOTE | 2016-06-11 00:15 | NUR ---
sleep Patient fell asleep in bed at 0015
--- NOTE | 2016-06-11 05:34 | NUR ---
Chart Check 24 hour chart check completed
--- NOTE | 2016-06-11 06:29 | NUR ---
summary assumed care of pt at 0000. Patient had just laid down for bed, fell asleep at 0015. Patient slept throughout the night, waking up at 0600. patient was incontinent of bladder. after changing, patient came out of his room pacing the halls for a short period before going back to the dayroom. Once in the dayroom patient has been standing looking out the windows for the last 30 min. Staff is present in dayroom with patient
--- NOTE | 2016-06-11 07:45 | NUR ---
Pt Status Pt luyi Addendum: 06/11/16 at 1400 by SO MARTE RN disregard note
--- NOTE | 2016-06-11 07:45 | NUR ---
Pt Status Pt lying in bed on side. Reports in angry tone, "they are whores and bitches who took my shoes and belt." Provided pt with these items locked up and pt continued to express anger and frustration. Explained items kept secure in closet and that we do this for all patients. Allowed nurse to take his vitals.
[2016-06-11 08:00] VITALS: BP 133/72; PULSE 74; RESP 18; TEMP 97.4; O2SAT 96
--- NOTE | 2016-06-11 08:00 | NUR ---
Sleep Time Received report that pt. to sleep at 0015 and awake at 0600. Pt. awake and lying in bed, fully dressed.
[2016-06-11] MEDS: QUETIAPINE 100 MG TABLET PO SCH ×3 (09:00→19:18)
[2016-06-11] MEDS: CIPROFLOXACIN 250 MG TABLET PO SCH (09:00)
--- NOTE | 2016-06-11 10:12 | NUR ---
ORAL SURGERY TECHNICIAN--[facility] with pt. when he came into office and sat in chair at table. Pt. was calm with pleasant mood. He talks very softly and many of his words are mumbled at times. He is only oriented to himself this morning. This SW shows pt. the calendar and talks with him about what day today is and highlights the day of his court hearing in yellow. Pt. continues to be confused regarding day and time despite repeated cueing and visual aid. Pt. wants to take notes as we talk about the upcoming guardianship hearing. He is not able to formulate a complete written sentence and is not able to write the word "guardian" even with this SW spelling it to him slowly one letter at a time. Patient's speech is often times disorganized and illogical. He randomly made the statement, "I imagine less pepper than you." This SW helped pt. organize what he needs to be thinking about before his court hearing by typing up a paper for him to keep with him (copy in chart). It identifies date of hearing and that [employer] will drive him there. Marbin is asked to think about whether he needs help managing his money, help finding housing and help with arranging medical care. During the discussion, Marbin admitted he needs help. Marbin has made it clear he wants to live in [place]. The sheet lists out possible living options (on the street, in an apartment, in assisted living apartment, or in a skilled nursing). Marbin was left space on the sheet to write down the things he thinks he needs when he leaves the hospital. Marbin remained confused but calm with pleasant mood throughout the session. When he stood up to leave, he said, "His kind of court needs to be named."
--- NOTE | 2016-06-11 14:52 | NUR ---
PRELOAD SUPERVISOR--INDIVIDUAL LSCSW met with pt. 1:1. Pt. was alert, Ox1, calm with pleasant mood. Pt. mumbles and it is difficult to understand much of what he is saying. He did say, "I saw this lary with a paint brush doing some work. He was about eye height." (There was no one with a paint brush on the unit). His train of thought is disorganized and he confabulates stories that don't necessarily make any sense. This SW brought up website for [facility] and asked pt. if he ever utilized their services. It was unclear if he had ever been to the [facility]. When asked who he tended to socialize with, he mentioned something about one or two churches in [place]. When asked how he obtained meals, he mentioned some people recognize him and ask him what he needs. Sometimes they give him food. Pt. remained pleasant and calm. He enjoys the 1:1 social interaction and validation for his thoughts and feelings.
[2016-06-11 15:39] VITALS: BP 136/77; PULSE 70; RESP 18; TEMP 98.1; O2SAT 97
--- NOTE | 2016-06-11 17:11 | GENPN ---
[facility] Subjective Date DATE: 06/11/16 TIME: 17:08 Subjective/Severity of Illness Medications Current Medications Medications (Trade) Dose Ordered Sig/Tiff Start Time Stop Time Status Last Admin Dose Admin Miscellaneous Medication (May use PRN orders) 1 PRN PRN 06/01/16 22:45 Haloperidol (Haldol) 0.5 mg Q6H PRN 06/01/16 21:40 Lorazepam (Ativan) 0.5 mg Q6H PRN 06/01/16 21:40 06/08/16 13:43 0.5 MG Lorazepam (Ativan) 0.5 mg Q6H PRN 06/01/16 21:40 06/03/16 09:49 0.5 MG Haloperidol Lactate (Haldol 5 Mg/ml Inj) 0.5 mg Q6H PRN 06/01/16 21:40 06/03/16 09:49 0.5 MG Lorazepam (Ativan Intensol) 0.5 mg Q6H PRN 06/01/16 21:40 06/02/16 20:02 0.5 MG Haloperidol (Haldol Liquid) 0.5 mg Q6H PRN 06/01/16 21:40 06/08/16 20:10 0.5 MG Tamsulosin HCl (FLOMAX 0.4 mg) 0.4 mg HS 06/02/16 21:00 06/10/16 22:00 0.4 MG HCTZ/Lisinopril (Prinzide ) 1 tab DAILY 06/03/16 09:00 Future Hold 06/07/16 08:44 1 TAB Cephalexin HCl (Keflex) 500 mg Q8HR 06/02/16 17:00 06/04/16 10:35 DC 06/04/16 07:45 500 MG Quetiapine Fumarate (Seroquel) 25 mg BID 06/02/16 21:00 06/03/16 18:50 DC 06/03/16 08:08 25 MG Quetiapine Fumarate (Seroquel) 50 mg BID 06/03/16 21:00 06/05/16 11:00 DC 06/05/16 07:54 50 MG Ciprofloxacin (Cipro) 250 mg Q12HR 06/05/16 09:00 06/09/16 17:33 DC 06/09/16 08:31 250 MG Quetiapine Fumarate (Seroquel) 100 mg BID 06/05/16 21:00 06/09/16 12:23 DC 06/09/16 08:32 100 MG Quetiapine Fumarate (Seroquel) 50 mg 16 06/08/16 16:00 06/09/16 12:23 DC 06/08/16 13:43 50 MG Lorazepam (Ativan) 1 mg HS 06/08/16 21:00 06/10/16 22:00 1 MG Quetiapine Fumarate (Seroquel) 100 mg 08,15,21 06/09/16 15:00 06/10/16 10:53 DC 06/09/16 19:54 100 MG Lorazepam (Ativan) 1 mg DAILY PRN 06/09/16 12:30 06/10/16 13:06 1 MG Ciprofloxacin (Cipro) 250 mg Q12HR 06/09/16 21:00 06/11/16 09:00 DC 06/11/16 09:00 250 MG Quetiapine Fumarate (Seroquel) 100 mg ,,06/10/16 13:00 06/11/16 12:08 100 MG Subjective Patient seen and chart reviewed. Nursing reports pt has been more disorganized and irritable at times. Pt slept well and has a good appetite. On face to face the pt does appear more disorganized and angry than when seen by this documentation writer last week. Pt states people are stealing his things. He has very poor short term memory. He denies any psychotic symptoms and denies pain. Tolerating meds Time of Service: 16:30 Start Time: 16:30 Stop Time: 16:45 Care >50% of this visit spent in counseling/coordination care. [facility] Exam Vitals Vital Signs Date Time Temp Pulse Resp B/P Pulse Ox O2 Delivery O2 Flow Rate FiO2 06/11/16 15:39 98.1 70 18 136/77 97 Room Air Physical examination performed by the hospitalist. Height (Feet): 5 Height (Inches): 9.00 Mental Status Exam Muscle Strength/Tone: Normal Dressing: Casual Grooming: Good Attitude: Guarded, Suspicious Motor Activity: Normal Eye Contact: Good Speech: Slowed Volume: Soft Rhythm: Appropriate Rhythm Sensory: Alert Orientation: Oriented to person Mood: Irritable Affect: Congruent Rate of Thoughts: Delayed Thought Organization: [place] Associations: Illogical Abstract Reasoning: Impaired, concrete Thought Content: Delusions Perception/Psychotic: Perception Normal Attention Span/Concentration: Short Span Fund of Knowledge: Poor fund of knowledge Memory: Poor-immediate, Poor-recent Suicidal Ideation: None Homicidal Ideation: None Insight: Poor Judgment: Poor Impulse Control: Poor Assessment and Plan (1) Schizophrenia Assessment: Admit patient to [facility] unit. Start Seroquel 25mg BID. Patient is also Keflex 500mg TID. 06/03/16: Increase Seroquel to 50mg BID: for psychosis 06/04/16 Continue current care 06/05/16 increase seroquel to 100mg po bid 06/06/16 Continue current care 06/07/16: Continue current care; will give PRN Ativan and see if patient allows blood work to be drawn today. 06/08/16: Increase Seroquel to 100mg PO q AM, 50mg PO daily at 1600 (patient becomes more agitated in evening), and 100mg PO q HS. Start Ativan 1mg PO q HS to target insomnia. Will consult ST for RIPPA and OT for KEITH. Will repeat SLUMS today or tomorrow. 06/09/16: Change Seroquel dose to 100mg PO TID (AM, 1500, HS). Will write order for PRN Ativan prior to lab draw. 06/10/16: Continue Seroquel 100mg PO TID but move afternoon dose to 1300. Order EKG for today to monitor QTc due to patient taking Seroquel as well as Ciprofloxacin. 06/11/16 Continue current care (2) Major neurocognitive disorder (3) CKD (chronic kidney disease), stage III (4) BPH (benign prostatic hypertrophy) Cont. current psych. meds FRACISCO PIERRE MD Jun 11, 2016 17:11
--- NOTE | 2016-06-11 18:12 | NUR ---
Shift Summary Pt. cooperative with cares, does isolate at times but does verbalize needs and no verbal or physical aggression. Looks at papers regarding court date of 06-15-16. Does have rambling speech easily from one topic to another and only oriented to person.
--- NOTE | 2016-06-11 18:15 | NUR ---
Sleep Time No sleep time since shift.
[2016-06-11] MEDS: TAMSULOSIN 0.4 MG CAPSULE PO SCH (19:18)
[2016-06-11] MEDS: LORAZEPAM 1 MG TABLET PO SCH (19:18)
[2016-06-11 20:13] VITALS: BP 150/99; PULSE 77; RESP 18; TEMP 98.7; O2SAT 94
[2016-06-11 21:48] VITALS: PULSE 77; RESP 18
--- NOTE | 2016-06-12 00:36 | NUR ---
Chart Check 24 hour chart check completed
--- NOTE | 2016-06-12 00:36 | NUR ---
Bed time Pt went to bed at 2114 but was restless in his bed, so he moved to his recliner with blanket and pillow. Fell asleep in his recliner at 5. Currently still sleeping at this time. Will continue to monitor Addendum: 06/12/16 at 0529 by HAYLEY BRANDON RN Slept total of .50 on days
--- NOTE | 2016-06-12 00:37 | NUR ---
Mid shift status Pt was sitting in day room at beginning of shift. Alert to person. Up ad sherine. Pt is pleasant and cooperative with assessment. Smiling and visiting with this nurse. Pt compliant with all HS meds, taking whole without difficulty. Pt stated he wanted to listen to music "with those things that go on my ears. I had them earlier but they had to do something with them". I explained that they may have had to charge the ipod. He nodded. Went and got the headphones and ipod for pt. Pt was happy. Sat with pt for awhile visiting, and he pulled out papers he had in his book and he wanted me to see them. He said he wanted me to write down his responses on a separate sheet of paper. He made it clear he did not like the wording of the questions on the paper he was given. Such as, it read "I (Marbin) do....." and pt did not like it. He stated "why can't they just put "I" if I am answering questions about me? This is stupid and it is making me upset". I had pt move to dining table with me where we could write his responses to the questions. He repeatedly went over the questions and had this nurse write the responses the way he wanted. He then looked over the responses I had written down to proof read and make sure it was what he wanted to say. Pt was satisfied and continued to listen to his music. Sat with pt for a duration helping him and keeping him company. I had to leave the table for a short time and when I came back to day room, pt was at exit door in dining area, trying to push it open. When I asked the pt what is happening, he stated "well no one wanted to talk to me any more so I thought I would leave. Assured pt I was here to listen. Pt appeared more confused at this time, asking where he was and why he couldn't open the door. Explained to pt the door is locked at all times and also oriented him to the hospital and unit. Pt made comments about how he is tired of this place and just wants to be able to come and go when he wants to, instead of being locked up. When helping pt with his questions, he did say he would like to live in a place where he will be able to do that. Pt is adamant about going back to [place]. Pt did not display any verbal or physical aggression this shift. No behaviors noted. Pt decided he wanted to go to bed. When going to bed, pt allowed this nurse to lock up his belt and shoes for the night. He also allowed for his clothes to be laundered. He was appreciative for helping him this shift. He still had some slight suspicions, saying that "they took my other belt and suspenders, they stole from me". Redirected pt focus on other things without difficulty. Pt went to bed at 2114 and was in bed for short time before getting up, stating he wanted to lay back in his recliner in his room because the bed was not comfortable. Pt fell asleep at 2244 and is currently sleeping at this time. Will continue to monitor.
--- NOTE | 2016-06-12 02:32 | NUR ---
Pt status Pt woke at 0200 and is currently sitting in day room. Will continue to monitor
--- NOTE | 2016-06-12 03:04 | NUR ---
Back to bed Pt back to bed at 0300 and currently still awake. Will continue to monitor
--- NOTE | 2016-06-12 03:41 | NUR ---
Sleep Pt back to sleep at 0330. Will continue to monitor
--- NOTE | 2016-06-12 05:30 | NUR ---
Summary Pt slept from 2245 to 0200. He woke up and went into day room for a snack and juice. Pt stayed awake and went back to bed at 0300. Was sleeping again at 0330 and has been sleeping since. Pt was pleasant but still concerned about his papers he is carrying around. He asked this nurse about his belt and shoes and I reminded him that I locked them in the cubby outside his room and he would get them in morning when he woke. Showed pt again where I placed them and assured him he would have them in morning. Pt nodded and said "thank you". Pt has not displayed any verbal or physical aggression this shift. No behaviors. No PRNs given this shift. Pt has been continent. Currently sleeping. Bed rails up x 2 and alarm on. Will continue to monitor
[2016-06-12] MEDS: QUETIAPINE 100 MG TABLET PO SCH ×2 (07:42→12:00)
[2016-06-12 08:00] VITALS: BP 147/71; PULSE 74; PULSE 78; RESP 18; TEMP 98.2; O2SAT 93
--- NOTE | 2016-06-12 10:34 | GENPN ---
[facility] Subjective Date DATE: 06/12/16 TIME: 10:31 Subjective/Severity of Illness Medications Current Medications Medications (Trade) Dose Ordered Sig/Tiff Start Time Stop Time Status Last Admin Dose Admin Miscellaneous Medication (May use PRN orders) 1 PRN PRN 06/01/16 22:45 Haloperidol (Haldol) 0.5 mg Q6H PRN 06/01/16 21:40 Lorazepam (Ativan) 0.5 mg Q6H PRN 06/01/16 21:40 06/08/16 13:43 0.5 MG Lorazepam (Ativan) 0.5 mg Q6H PRN 06/01/16 21:40 06/03/16 09:49 0.5 MG Haloperidol Lactate (Haldol 5 Mg/ml Inj) 0.5 mg Q6H PRN 06/01/16 21:40 06/03/16 09:49 0.5 MG Lorazepam (Ativan Intensol) 0.5 mg Q6H PRN 06/01/16 21:40 06/02/16 20:02 0.5 MG Haloperidol (Haldol Liquid) 0.5 mg Q6H PRN 06/01/16 21:40 06/08/16 20:10 0.5 MG Tamsulosin HCl (FLOMAX 0.4 mg) 0.4 mg HS 06/02/16 21:00 06/11/16 19:18 0.4 MG HCTZ/Lisinopril (Prinzide ) 1 tab DAILY 06/03/16 09:00 Future Hold 06/07/16 08:44 1 TAB Cephalexin HCl (Keflex) 500 mg Q8HR 06/02/16 17:00 06/04/16 10:35 DC 06/04/16 07:45 500 MG Quetiapine Fumarate (Seroquel) 25 mg BID 06/02/16 21:00 06/03/16 18:50 DC 06/03/16 08:08 25 MG Quetiapine Fumarate (Seroquel) 50 mg BID 06/03/16 21:00 06/05/16 11:00 DC 06/05/16 07:54 50 MG Ciprofloxacin (Cipro) 250 mg Q12HR 06/05/16 09:00 06/09/16 17:33 DC 06/09/16 08:31 250 MG Quetiapine Fumarate (Seroquel) 100 mg BID 06/05/16 21:00 06/09/16 12:23 DC 06/09/16 08:32 100 MG Quetiapine Fumarate (Seroquel) 50 mg 16 06/08/16 16:00 06/09/16 12:23 DC 06/08/16 13:43 50 MG Lorazepam (Ativan) 1 mg HS 06/08/16 21:00 06/11/16 19:18 1 MG Quetiapine Fumarate (Seroquel) 100 mg ,,06/09/16 15:00 06/10/16 10:53 DC 06/09/16 19:54 100 MG Lorazepam (Ativan) 1 mg DAILY PRN 06/09/16 12:30 06/10/16 13:06 1 MG Ciprofloxacin (Cipro) 250 mg Q12HR 06/09/16 21:00 06/11/16 09:00 DC 06/11/16 09:00 250 MG Quetiapine Fumarate (Seroquel) 100 mg ,,06/10/16 13:00 06/12/16 07:42 100 MG Subjective Patient seen and chart reviewed. Nursing reports pt has been more disorganized and irritable at times. Pt slept well and has a good appetite. On face to face the pt remains some what disorganized and irritable. Is somewhat paranoid and has poor short term memory. Denies S/I or A/V jones. Denies pain. Tolerating meds. Time of Service: 09:45 Start Time: 09:45 Stop Time: 10:00 Care >50% of this visit spent in counseling/coordination care. [facility] Exam Vitals Vital Signs Date Time Temp Pulse Resp B/P Pulse Ox O2 Delivery O2 Flow Rate FiO2 06/12/16 08:00 98.2 74 18 147/71 93 Room Air Physical examination performed by the hospitalist. Height (Feet): 5 Height (Inches): 9.00 Mental Status Exam Muscle Strength/Tone: Normal Dressing: Casual Grooming: Good Attitude: Guarded Motor Activity: Normal Eye Contact: Fair Speech: Slowed Volume: Soft Rhythm: Slurred Sensory: Alert Orientation: Oriented to person Mood: Irritable Affect: Congruent Rate of Thoughts: Delayed Thought Organization: [place] Associations: Loose-associations Abstract Reasoning: Impaired, concrete Thought Content: Delusions Perception/Psychotic: Hx psychosis,not current Attention Span/Concentration: Inattentive Fund of Knowledge: Poor fund of knowledge Memory: Poor-immediate, Poor-recent Suicidal Ideation: None Homicidal Ideation: None Insight: Poor Judgment: Poor Impulse Control: Fair Assessment and Plan (1) Schizophrenia Assessment: Admit patient to [facility] unit. Start Seroquel 25mg BID. Patient is also Keflex 500mg TID. 06/03/16: Increase Seroquel to 50mg BID: for psychosis 06/04/16 Continue current care 06/05/16 increase seroquel to 100mg po bid 06/06/16 Continue current care 06/07/16: Continue current care; will give PRN Ativan and see if patient allows blood work to be drawn today. 06/08/16: Increase Seroquel to 100mg PO q AM, 50mg PO daily at 1600 (patient becomes more agitated in evening), and 100mg PO q HS. Start Ativan 1mg PO q HS to target insomnia. Will consult ST for RIPPA and OT for KEITH. Will repeat SLUMS today or tomorrow. 06/09/16: Change Seroquel dose to 100mg PO TID (AM, 1500, HS). Will write order for PRN Ativan prior to lab draw. 06/10/16: Continue Seroquel 100mg PO TID but move afternoon dose to 1300. Order EKG for today to monitor QTc due to patient taking Seroquel as well as Ciprofloxacin. 06/11/16 Continue current care 06/12/16 Change Seroquel to 100mg at 0800 and 1300 and 200mg at HS (2) Major neurocognitive disorder (3) CKD (chronic kidney disease), stage III (4) BPH (benign prostatic hypertrophy) Cont. current psych. meds Increas HS Seroquel to 200mg FRACISCO PIERRE MD Jun 12, 2016 10:34
[2016-06-12 15:55] VITALS: BP 158/74; PULSE 72; RESP 18; TEMP 98.4; O2SAT 95
--- NOTE | 2016-06-12 16:43 | PNPDOC ---
HALEY MARLEY HOUSEHOLD CHORES 06/12/16 1642: Subjective Date DATE: 06/12/16 TIME: 16:38 Subjective Marbin is seen today in follow up. He is resting in the TV area. Is easily awakened. Repots feeling ok, no c/o today. Chart is reviewed. Mood/behavior remains variable. Objective Vital Signs Vital signs Vital Signs Date Time Temp Pulse Resp B/P Pulse Ox O2 Delivery O2 Flow Rate FiO2 06/12/16 15:55 98.4 72 18 158/74 95 Room Air Height (Feet): 5 Height (Inches): 9.00 Weight (Kilograms): 80.100 General General Appearance: Alert, Cooperative Comments Multiple layers of clothes, hats. Eyes (Brief) Eyes: FOUND: EOMI, PERRL Neck (Brief) Neck: FOUND: midline, NOT FOUND: JVD, nuchal rigidity, spasm Respiratory (Brief) Respiratory: FOUND: clear all bolanos, equal bilaterally, symmetrical, NOT FOUND : rales, wheezes Cardiovascular (Brief) Cardiac: FOUND: regular rate, regular rhythm, NOT FOUND: pedal edema Abdomen (Brief) Abdominal: FOUND: BS normo active x4, soft, NOT FOUND: distended, tender Extremities (Brief) Extremity : Side: Bilateral Extremity Finding: NOT FOUND: edema Psychiatric (Brief) Comments Cooperative. Easily awakened. Laboratory Laboratory Reviewed. Sepsis Diagnostic Criteria Sepsis Confirmed/Suspected Infection: No Assessment & Plan Problems: (1) UTI (urinary tract infection) Status: Acute Assessment & Plan: MICROBIOLOGY URINE CULTURE. Final 06/04/16 Organism 1 MORGANELLA MORGANII SSP BRENDON COLONY COUNT >100,000 CFU/ml Organism 2 ENTEROCOC FAECALIS - (GROUP D) COLONY COUNT >100,000 CFU/ml M MORGANII E FAECA(D) INTERP JAYA INTERP JAYA ------ --------- ------ --------- AMOX/CLAV ACID R AMPICILLIN R S <=2 CEFAZOLIN R CEFEPIME S <=1 CEFTAZIDIME S <=1 CEFTRIAXONE S <=1 CIPROFLOXACIN S <=0.25 S <=0.5 DOXYCYCLINE S <=0.5 ERTAPENEM S <=0.5 GENTAMICIN S <=1 LEVOFLOXACIN S <=0.12 S 0.5 LINEZOLID S 1 NITROFURANTOIN R 128 S <=16 TETRACYCLINE S <=1 TOBRAMYCIN S <=1 TRIMETH/SULFA S <=20 PIPERACILL/TAZO S <=4 VANCOMYCIN S 1 (2) Dementia Status: Chronic Qualifiers: Dementia type: unspecified type Dementia behavioral disturbance: without behavioral disturbance Qualified Codes: F03.90 - Unspecified dementia without behavioral disturbance (3) Schizophrenia Status: Chronic (4) HTN (hypertension) Status: Chronic (5) Urinary incontinence Status: Chronic Qualifiers: Urinary Incontinence type: unspecified incontinence Qualified Codes: R32 - Unspecified urinary incontinence (6) CKD (chronic kidney disease), stage III Status: Chronic (7) Normocytic anemia Status: Chronic (8) BPH (benign prostatic hypertrophy) Status: Chronic Plan/Intensity of Service 06/12/16- Pt is doing fairly well. BP is running higher- holding Lisinopril-HCT due to CKD, elevated SCr. Change to Norvasc, low dose. He appears dry- recheck labs in AM. Encourage PO fluids. Repeat UA due to severity of UTI. He has completed Cipro. Continue safe environment- placement pending. Code Status Full Code, unverified Hospital Course Summary Disclaimer The hospital course summary below is not to be considered part of the above Progress Note. Hospital Course Summary 06/02/16 Agree with admission to [facility]. UTI - Keflex started. Early growth noted on culture. [facility] records reviewed Cr ranged from 2-2.6 while hospitalized. He underwent TURP for b/l hydronephrosis. DC'd with these medications: Lisinopril/HCTZ 20/25, Flomax, Seroquel 50 mg BID and 100 mg HS, Aricept 10 mg HS Resume Lisinopril/HCTZ, Flomax. Consider Clonidine PRN or BB if BP does not show good improvement. CKD - recheck BMP in am. Schizophrenia/dementia - per attending. 06/04/16 Reviewed urine culture reveling Morganella Morganii and Entercoc Faecalis which is susceptible to Cipro. Did discuss dosing with pharmacy given CKD. Will given Cipro 500nmg PO now and continue 25mg BID x7 days. Discontinued Keflex Continue to monitor renal function. Will recheck BMP Wednesday 06/07. It is known that baseline creatinine is 2-2.3. Monitor blood pressure and continue on current regimen including Prinzide 20/25 daily Continue to encourage returns today unit activities 06/07/16 Dual organism UTI - cont. Cipro. Repeat BMP today to f/u on renal function. BP controlled on Prinzide. Psychiatric progress notes reviewed - Seroquel recently increased. 06/12/16- Pt is doing fairly well. BP is running higher- holding Lisinopril-HCT due to CKD, elevated SCr. Change to Norvasc, low dose. He appears dry- recheck labs in AM. Encourage PO fluids. Repeat UA due to severity of UTI. He has completed Cipro. Continue safe environment- placement pending. (Bill W[employer] PROC[employer] M[employer]ER visit only.) SHREYA ORTIZ MD 06/12/16 1937: HALEY MARLEY [employer]ES Jun 12, 2016 16:42 SHREYA ORTIZ MD Jun 12, 2016 19:37
--- NOTE | 2016-06-12 17:25 | NUR ---
SHIFT SUMMARY STATUS Pt is doing well with the bottled water. He drank one bottle. He also drank juice for breakfast (2 of them) and milk. Lunch he drank 360 ml and for dinner he drank milk and his tea. He has bottled water in fridge and one in his room. He has been offered several times today. Pt woke this am at 0700. He was accusatory this am thinking someone stole his shoes and belt. (this is a routine most mornings) I reassured him several times and showed him they were locked up and he was given them. He continued to accuse someone unknown that they "stole them and brought them back." Pt was very irritable this am through breakfast. He went to fridge and opened it and was asked to let the staff get him something, he refused and pushed his way in the fridge and took 4 juices. He took them back to the table, drank one and threw container on floor. He was asked to please pick it up and refused. He was asked to please go back to his room if he could not be pleasant. He walked around for about 3 minutes and then came to table to eat his breakfast. He refused his medications for breakfast until this play writer stated that the longer he continues to refuse medications and act irritable the longer the court will want him to stay here because they need to make sure he is complaint and safe. The patient said "ok give me my medication please." He took it without incident as well as his noon medications. Pt is unaware of where he is,except he knows he is not in [place]. He does not know the date nor the season. He is unaware of the time. He is incontinent at times. He rested for an hour today in his bed and had woke up and everything was wet. He came out and asked that we help him change his clothes and sheets. This was done. Patient cleansed off with a wet towel and washcloth and changed his clothes. They were then sent to the laundry. His mood appeared better throughout the day, while he was able to joke with staff and ask nicely for things. Upon overall assessment this patient is not able to live alone. He would not be safe or have the requirements for activities of daily living. He would need help with meals, keeping himself clean. He could not cook or do laundry or remember to take his medications at the correct time or even at all. He could not pay bills that were due. Pt will need assistance when he lives here strongly suggesting placement somewhere so that he can live a clean and safe life. He is dependent on medications for his mental health as well as other disease processes and he will not be compliant with that alone without assistance. Pt is currently in day room watching a tv show with other patients.
[2016-06-12 17:58] LABS: BLOOD, URINE NEGATIVE (NEGATIVE); COLOR,URINE YELLOW (YELLOW); LEUKOCYTE ESTERASE ,URINE NEGATIVE (NEGATIVE); NITRITE,URINE NEGATIVE (NEGATIVE); UROBILINOGEN,URINE 0.2 EU/DL (NORMAL)
[2016-06-12 19:30] VITALS: BP 140/79; PULSE 71; RESP 16; TEMP 98.6; O2SAT 96
[2016-06-12] MEDS: QUETIAPINE 200 MG TABLET PO SCH (20:29)
[2016-06-12] MEDS: LORAZEPAM 1 MG TABLET PO SCH (20:29)
[2016-06-12] MEDS: TAMSULOSIN 0.4 MG CAPSULE PO SCH (20:29)
--- NOTE | 2016-06-12 21:42 | NUR ---
Status Assumed patient care at 1915 and assessment completed at 1930. Patient is resting in bed at time of assessment and responds when name is called. FANG to person only; answers other orientation questions with, "I don't know." Pleasant with staff and allows assessment, following simple commands appropriately. Agreeable to shower/HS cares although behavior is somewhat guarded/suspicious of staff - repeatedly asks where we are taking his clothes/belt. He does reassure when rationale/explanations are provided by multiple staff members. He provides cares independently with set-up assist. Ambulates ad sherine with a steady gait. Readily compliant with HS medications and eats a large snack. VS are stable. Refuses to wear a patient ID bracelet and to keep bed rails up x2. Becomes irritated when rationale is provided (voice becomes loud, comments are argumentative, and he cusses briefly) and when staff leaves the room, he puts the side rails down x4. He distracts easily with conversation and is currently resting quietly in bed and is listening to music on his i-Pod. Bed rails remain down.
--- NOTE | 2016-06-13 03:21 | NUR ---
Bedtime Patient is in bed by 2029 and is asleep by 2144. He slept 2 hours on dayshift. Bed alarm is on.
--- NOTE | 2016-06-13 03:25 | NUR ---
Chart Check 24 hour chart check completed
--- NOTE | 2016-06-13 06:16 | NUR ---
Summary Patient has remained FANG to person only this shift. Mood is pleasant/cooperative and he only becomes anxious/agitated briefly x2 this shift - once with explanations regarding the need to lock his belt/tennis shoes in the jones cubby for overnight and again when staff attempted to raise his bed rails x2 at HS. Agitation is mild and consists of a raised voice, cussing, and arguing - he distracts fairly easily with music, alternative topic, or food. No physically aggressive behavior is noted. No paranoia is noted - only guarded behavior regarding staff handling of his belongings (locking up his belt/shoes and taking his dirty clothes for laundering). Compliant with hygiene cares following staff encouragement. Bottled water is kept available for him to drink and an adequate po fluid intake is noted this shift. Readily compliant with medications this shift. He will interact with staff (initiate conversation) but not with the other patients - chooses to sit at a separate table for his HS snack; otherwise, spends the majority of the evening in his room. Awake at 0530; incontinent of urine and requires a complete bed/clothing change. Hesitant in allowing staff to take clothes for laundering, but does so with encouragement/reassurances. Walks the length of halls several times before returning to bed. Resting quietly at the current time.
[2016-06-13 08:00] VITALS: PULSE 74; RESP 16
[2016-06-13] MEDS: QUETIAPINE 100 MG TABLET PO SCH ×2 (08:00→11:51)
[2016-06-13 08:04] VITALS: BP 140/71; PULSE 79; RESP 20; TEMP 98.4; O2SAT 94
--- NOTE | 2016-06-13 08:20 | GENPN ---
[facility] Subjective Date DATE: 06/13/16 TIME: : Subjective/Severity of Illness Medications Current Medications Medications (Trade) Dose Ordered Sig/Tiff Start Time Stop Time Status Last Admin Dose Admin Miscellaneous Medication (May use PRN orders) 1 PRN PRN 06/01/16 22:45 Haloperidol (Haldol) 0.5 mg Q6H PRN 06/01/16 21:40 Lorazepam (Ativan) 0.5 mg Q6H PRN 06/01/16 21:40 06/08/16 13:43 0.5 MG Lorazepam (Ativan) 0.5 mg Q6H PRN 06/01/16 21:40 06/03/16 09:49 0.5 MG Haloperidol Lactate (Haldol 5 Mg/ml Inj) 0.5 mg Q6H PRN 06/01/16 21:40 06/03/16 09:49 0.5 MG Lorazepam (Ativan Intensol) 0.5 mg Q6H PRN 06/01/16 21:40 06/02/16 20:02 0.5 MG Haloperidol (Haldol Liquid) 0.5 mg Q6H PRN 06/01/16 21:40 06/08/16 20:10 0.5 MG Tamsulosin HCl (FLOMAX 0.4 mg) 0.4 mg HS 06/02/16 21:00 06/12/16 20:29 0.4 MG HCTZ/Lisinopril (Prinzide ) 1 tab DAILY 06/03/16 09:00 06/12/16 16:44 DC 06/07/16 08:44 1 TAB Cephalexin HCl (Keflex) 500 mg Q8HR 06/02/16 17:00 06/04/16 10:35 DC 06/04/16 07:45 500 MG Quetiapine Fumarate (Seroquel) 25 mg BID 06/02/16 21:00 06/03/16 18:50 DC 06/03/16 08:08 25 MG Quetiapine Fumarate (Seroquel) 50 mg BID 06/03/16 21:00 06/05/16 11:00 DC 06/05/16 07:54 50 MG Ciprofloxacin (Cipro) 250 mg Q12HR 06/05/16 09:00 06/09/16 17:33 DC 06/09/16 08:31 250 MG Quetiapine Fumarate (Seroquel) 100 mg BID 06/05/16 21:00 06/09/16 12:23 DC 06/09/16 08:32 100 MG Quetiapine Fumarate (Seroquel) 50 mg 16 06/08/16 16:00 06/09/16 12:23 DC 06/08/16 13:43 50 MG Lorazepam (Ativan) 1 mg HS 06/08/16 21:00 06/12/16 20:29 1 MG Quetiapine Fumarate (Seroquel) 100 mg ,15,21 06/09/16 15:00 06/10/16 10:53 DC 06/09/16 19:54 100 MG Lorazepam (Ativan) 1 mg DAILY PRN 06/09/16 12:30 06/10/16 13:06 1 MG Ciprofloxacin (Cipro) 250 mg Q12HR 06/09/16 21:00 06/11/16 09:00 DC 06/11/16 09:00 250 MG Quetiapine Fumarate (Seroquel) 100 mg ,,06/10/16 13:00 06/12/16 10:37 DC 06/12/16 07:42 100 MG Quetiapine Fumarate (Seroquel) 100 mg ,13 06/12/16 13:00 06/12/16 12:00 100 MG Quetiapine Fumarate (Seroquel) 200 mg HS 06/12/16 21:00 06/12/16 20:29 200 MG Amlodipine Besylate (Norvasc) 2.5 mg DAILY 06/13/16 09:00 Subjective Patient seen and chart reviewed. Nursing reports pt is doing a little better. Sleeping well and has a good appetite. Appears to be more organized and less irritable than yesterday. Pt states he is doing well. Mood stable and denies S /I or psychosis. Tolerating meds. Time of Service: :15 Start Time: :15 Stop Time: 08:30 Care >50% of this visit spent in counseling/coordination care. [facility] Exam Vitals Vital Signs Date Time Temp Pulse Resp B/P Pulse Ox O2 Delivery O2 Flow Rate FiO2 06/13/16 08:04 98.4 79 20 140/71 94 Room Air Physical examination performed by the hospitalist. Height (Feet): 5 Height (Inches): 9.00 Mental Status Exam Muscle Strength/Tone: Normal Dressing: Casual Grooming: Good Attitude: Cooperative Motor Activity: Normal Eye Contact: Good Speech: Normal Volume: Normal Rhythm: Appropriate Rhythm Sensory: Alert Orientation: Oriented to person, Oriented to place Mood: Neutral Affect: Congruent Rate of Thoughts: Appropriate Rate Thought Organization: [place] Associations: Intact Abstract Reasoning: Impaired, concrete Thought Content: Paranoia Perception/Psychotic: Hx psychosis,not current Attention Span/Concentration: Short Span Fund of Knowledge: Poor fund of knowledge Memory: Poor-immediate, Poor-recent Suicidal Ideation: None Homicidal Ideation: None Insight: Poor Judgment: Poor Impulse Control: Fair Laboratory Tests Test 06/12/16 17:51 Urine Collection Type Cleancatch-midstream Urine Color Yellow Urine Turbidity Clear Urine pH 6.5 Urine Specific [place] <=1.005 Urine Protein Negative Urine Glucose (UA) Negative Urine Ketones Negative Urine Blood Negative Urine Nitrite Negative Urine Bilirubin Negative Urine Urobilinogen 0.2EU/DL Urine Leukocyte Esterase Negative Urinalysis Comment Microscopic not ind. Assessment and Plan (1) Schizophrenia Assessment: Admit patient to [facility] unit. Start Seroquel 25mg BID. Patient is also Keflex 500mg TID. 06/03/16: Increase Seroquel to 50mg BID: for psychosis 06/04/16 Continue current care 06/05/16 increase seroquel to 100mg po bid 06/06/16 Continue current care 06/07/16: Continue current care; will give PRN Ativan and see if patient allows blood work to be drawn today. 06/08/16: Increase Seroquel to 100mg PO q AM, 50mg PO daily at 1600 (patient becomes more agitated in evening), and 100mg PO q HS. Start Ativan 1mg PO q HS to target insomnia. Will consult ST for RIPPA and OT for KEITH. Will repeat SLUMS today or tomorrow. 06/09/16: Change Seroquel dose to 100mg PO TID (AM, 1500, HS). Will write order for PRN Ativan prior to lab draw. 06/10/16: Continue Seroquel 100mg PO TID but move afternoon dose to 1300. Order EKG for today to monitor QTc due to patient taking Seroquel as well as Ciprofloxacin. 06/11/16 Continue current care 06/12/16 Change Seroquel to 100mg at 0800 and 1300 and 200mg at HS 06/13/16 Continue current care (2) Major neurocognitive disorder (3) CKD (chronic kidney disease), stage III (4) BPH (benign prostatic hypertrophy) Cont. current psych. meds FRACISCO PIERRE MD Jun 13, 2016 08:20
[2016-06-13] MEDS: AMLODIPINE 2.5 MG TABLET PO SCH (09:00)
[2016-06-13 15:43] LABS: BASOPHILS % (AUTO) 0.6 % (0-2); EOSINOPHILS # (AUTO) 0.2 T/MM3 (0-0.5); EOSINOPHILS % (AUTO) 2.2 % (0-4); HCT - HEMATOCRIT 37.5 % (41-53); HGB - HEMOGLOBIN 12.2 GM/DL (13.5-17.5); IMMATURE GRANULOCYTE # (AUTO) 0.03 T/MM3 (0.00-0.03); IMMATURE GRANULOCYTE % (AUTO) 0.4 % (0.0-0.5); LYMPHOCYTES # (AUTO) 2.3 T/MM3 (1-4.8); LYMPHOCYTES % (AUTO) 32.1 % (23-45); MEAN CORPUSCULAR HGB 28.6 UUG (26-34); MEAN CORPUSCULAR HGB CONC(MCHC 32.5 GM/DL (31-37); MEAN CORPUSCULAR VOLUME 87.8 UM3 (80-100); MEAN PLATELET VOLUME 8.8 UM3 (9.4-12.4); MONOCYTES # (AUTO) 0.5 T/MM3 (0-0.8); MONOCYTES % (AUTO) 6.7 % (0-9.0); NEUTROPHILS #(AUTO)-ABSOLUTE 4.2 T/MM3 (1.8-7.7); RED BLOOD COUNT 4.27 M/MM3 (4.50-5.90); WBC - WHITE BLOOD COUNT 7.2 T/MM3 (4.5-11.0)
[2016-06-13 15:48] LABS: ALBUMIN 3.9 G/DL (3.5-5.0); ANION GAP 12 MEQ/L (5-15); BUN/CREATININE RATIO 17 RATIO (6-26); CALCIUM 9.3 MG/DL (8.4-10.2); CHLORIDE 105 MEQ/L (98-107); CO2 - CARBON DIOXIDE 25 MEQ/L (22-30); CREATININE 2.1 MG/DL (0.8-1.5); GLOMERULAR FILTRATION RATE 31; GLUCOSE 128 MG/DL (75-110); MAGNESIUM 1.8 MG/DL (1.6-2.3); PHOSPHORUS 3.3 MG/DL (2.5-4.5); POTASSIUM 4.4 MEQ/L (3.6-5); SODIUM 142 MEQ/L (134-144)
[2016-06-13 16:00] VITALS: BP 149/74; PULSE 76; RESP 18; TEMP 98.6; O2SAT 96
--- NOTE | 2016-06-13 16:38 | NUR ---
SHIFT SUMMARY Pt has been without behaviors this shift. He has been complaint with cares and medications. He did refuse to have his lab drawn this am so they had to come back, once we got him to agree to have lab drawn. He has been in and out of his room most of day, walks in the jones and visits with staff. He is incontinent when he is in bed and falls asleep, requiring a full bed change and wash of clothes. He is currently in day room watching tv. Upon assessment patient will need assistance when he leaves, he cannot be without some assistance for activities of daily living.
[2016-06-13 19:41] VITALS: BP 158/94; PULSE 75; RESP 18; TEMP 97.4; O2SAT 94
[2016-06-13] MEDS: LORAZEPAM 1 MG TABLET PO SCH (20:07)
[2016-06-13] MEDS: TAMSULOSIN 0.4 MG CAPSULE PO SCH (20:08)
[2016-06-13] MEDS: QUETIAPINE 200 MG TABLET PO SCH (20:08)
[2016-06-13 20:11] VITALS: PULSE 75; RESP 18
--- NOTE | 2016-06-14 03:50 | NUR ---
Status Pt. is sitting in the dayroom on approach. Pt. is pleasant with staff. Pt. is compliant with HS meds and assessment. Pt. falls asleep and awakens due to incontinence. Pt. allows staff to assist with cleaning his linens and taking his clothes to be laundered. Pt.'s shoes and belt are taken out of pt. room. Pt. becomes irate and yells at staff. Pt. is belligerent and paranoid about his belongings being stolen. Pt. demands his shoes. Pt. talks about hating it here because we take his things and lock them up. Staff is changed out and this RN was able to calm pt by talking to him and giving him music to listen to. Pt. did not become physically aggressive. No prn meds given. Pt. is resting in bed at this time.
--- NOTE | 2016-06-14 05:21 | NUR ---
Bedtime Pt. is asleep at 2130 and awakens at 0030. Pt. falls back asleep at 0330. Pt. did not sleep during dayshift.
--- NOTE | 2016-06-14 05:21 | NUR ---
Chart Check 24 hour chart check completed
--- NOTE | 2016-06-14 06:52 | NUR ---
Summary Pt. is compliant at the beginning of the shift. Pt. becomes belligerent and upset with staff for locking up his belongings. (see previous note). Pt. returns to sleep and wakes up in a much better mood. Pt. apologizes to staff and says, "I'm sorry for being an asshole, I just needed more sleep." Pt. is listening to his music with a smile on his face. No prn meds given.
[2016-06-14 07:31] VITALS: BP 153/82; PULSE 67; RESP 18; TEMP 98.2; O2SAT 95
[2016-06-14 07:35] VITALS: PULSE 67; RESP 18
[2016-06-14] MEDS: AMLODIPINE 2.5 MG TABLET PO SCH (07:36)
[2016-06-14] MEDS: QUETIAPINE 100 MG TABLET PO SCH ×2 (07:36→12:31)
--- NOTE | 2016-06-14 09:57 | PNPDOC ---
Subjective Date DATE: 06/14/16 TIME: 09:47 Subjective Marbin was lying in bed awake. He was fully clothed with his tennis shoes on, coat, and hat. He sat up quickly, stating he would rather sit up to talk to me. He denied any chest pain, difficulty breathing, cough, abdominal pain or GI complaints. He's been eating well and bowels have been moving. He occasionally has some belligerent behaviors, but overall is cooperative. He will be released tomorrow for trial. Objective Vital Signs Vital signs Vital Signs Date Time Temp Pulse Resp B/P Pulse Ox O2 Delivery O2 Flow Rate FiO2 06/14/16 07:35 67 18 06/14/16 07:31 98.2 153/82 95 Room Air Height (Feet): 5 Height (Inches): 9.00 Weight (Kilograms): 80.100 General General Appearance: Alert, Orientated x 3, Well Nourished, Well Developed, No Acute Distress Eyes (Brief) Eyes: FOUND: PERRL, NOT FOUND: scleral icterus ENMT (Brief) ENMT: FOUND: mucosa moist, NOT FOUND: pharnyx erythema Respiratory (Brief) Respiratory: FOUND: clear all bolanos, equal bilaterally Cardiovascular (Brief) Cardiac: FOUND: regular rate, regular rhythm Abdomen (Brief) Abdominal: FOUND: BS normo active x4, soft, NOT FOUND: distended Extremities (Brief) Extremity : Extremity Finding: NOT FOUND: edema Musculoskeletal (Brief) Musculoskeletal: NOT FOUND: tenderness Integumentary (Brief) Integumentary: FOUND: dry, pink, warm Psychiatric (Brief) Psychiatric: FOUND: alert, attentive, normal affect, oriented Laboratory Laboratory Laboratory Tests 06/13/16 15:29 Laboratory Tests 06/13/16 15:29 Sepsis Diagnostic Criteria Sepsis Confirmed/Suspected Infection: No Assessment & Plan Problems: (1) UTI (urinary tract infection) Status: Resolved Assessment & Plan: MICROBIOLOGY URINE CULTURE. Final 06/04/16 Organism 1 MORGANELLA MORGANII SSP BRENDON COLONY COUNT >100,000 CFU/ml Organism 2 ENTEROCOC FAECALIS - (GROUP D) COLONY COUNT >100,000 CFU/ml M MORGANII E FAECA(D) INTERP JAYA INTERP JAYA ------ --------- ------ --------- AMOX/CLAV ACID R AMPICILLIN R S <=2 CEFAZOLIN R CEFEPIME S <=1 CEFTAZIDIME S <=1 CEFTRIAXONE S <=1 CIPROFLOXACIN S <=0.25 S <=0.5 DOXYCYCLINE S <=0.5 ERTAPENEM S <=0.5 GENTAMICIN S <=1 LEVOFLOXACIN S <=0.12 S 0.5 LINEZOLID S 1 NITROFURANTOIN R 128 S <=16 TETRACYCLINE S <=1 TOBRAMYCIN S <=1 TRIMETH/SULFA S <=20 PIPERACILL/TAZO S <=4 VANCOMYCIN S 1 (2) Dementia Status: Chronic Qualifiers: Dementia type: unspecified type Dementia behavioral disturbance: without behavioral disturbance Qualified Codes: F03.90 - Unspecified dementia without behavioral disturbance (3) Schizophrenia Status: Chronic (4) HTN (hypertension) Status: Chronic (5) Urinary incontinence Status: Chronic Qualifiers: Urinary Incontinence type: unspecified incontinence Qualified Codes: R32 - Unspecified urinary incontinence (6) CKD (chronic kidney disease), stage III Status: Chronic (7) Normocytic anemia Status: Chronic (8) BPH (benign prostatic hypertrophy) Status: Chronic Plan/Intensity of Service BMP rechecked on 06/13/16 and BUN and creatinine improved to 35 and 2.1. Lisinopril/HCTZ was placed on hold and low-dose Norvasc was started. Monitor closely for pedal edema - he had problems with Norvasc-related edema in the past. Resume Lisinopril/HCTZ at lower dose of 10/25 mg. Repeat BMP on 06/17/16 Cipro course completed and repeat UA on 06/12/16 was negative for recurrent UTI. Trial scheduled for tomorrow. Psych notes reviewed - Seroquel adjusted. Code Status Full Code, unverified Hospital Course Summary Disclaimer The hospital course summary below is not to be considered part of the above Progress Note. Hospital Course Summary 06/02/16 Agree with admission to [facility]. UTI - Keflex started. Early growth noted on culture. VC records reviewed Cr ranged from 2-2.6 while hospitalized. He underwent TURP for b/l hydronephrosis. DC'd with these medications: Lisinopril/HCTZ 20/25, Flomax, Seroquel 50 mg BID and 100 mg HS, Aricept 10 mg HS Resume Lisinopril/HCTZ, Flomax. Consider Clonidine PRN or BB if BP does not show good improvement. CKD - recheck BMP in am. Schizophrenia/dementia - per attending. 06/04/16 Reviewed urine culture reveling Morganella Morganii and Entercoc Faecalis which is susceptible to Cipro. Did discuss dosing with pharmacy given CKD. Will given Cipro 500nmg PO now and continue 25mg BID x7 days. Discontinued Keflex Continue to monitor renal function. Will recheck BMP Wednesday 06/07. It is known that baseline creatinine is 2-2.3. Monitor blood pressure and continue on current regimen including Prinzide 20/25 daily Continue to encourage returns today unit activities 06/07/16 Dual organism UTI - cont. Cipro. Repeat BMP today to f/u on renal function. BP controlled on Prinzide. Psychiatric progress notes reviewed - Seroquel recently increased. 06/12/16- Pt is doing fairly well. BP is running higher- holding Lisinopril-HCT due to CKD, elevated SCr. Change to Norvasc, low dose. He appears dry- recheck labs in AM. Encourage PO fluids. Repeat UA due to severity of UTI. He has completed Cipro. Continue safe environment- placement pending. (Bill ROOM MAID visit only.) 06/14/16 BMP rechecked on 06/13/16 and BUN and creatinine improved to 35 and 2.1. Lisinopril/HCTZ was placed on hold and low-dose Norvasc was started. Monitor closely for pedal edema - he had problems with Norvasc-related edema in the past. Resume Lisinopril/HCTZ at lower dose of 10/25 mg. Repeat BMP on 06/17/16 Cipro course completed and repeat UA on 06/12/16 was negative for recurrent UTI. Trial scheduled for tomorrow. Psych notes reviewed - Seroquel adjusted. MADHAVI TOLLIVER [employer] LEAD DEVELOPER Jun 14, 2016 09:50
--- NOTE | 2016-06-14 13:19 | NUR ---
Status Pt was dressed and ready for the day when this nurse came on shift. Pt cooperative with assessment this morning. Pt ate 100% of breakfast and lunch. Pt is now in mental health program director's office working on paperwork for court tomorrow.
[2016-06-14] MEDS ORDERED: LISI1TAB9 PO (15:25)
[2016-06-14] MEDS ORDERED: TAMS0.4C47 PO (15:25)
[2016-06-14 15:45] VITALS: BP 148/85; PULSE 74; RESP 18; TEMP 98.6; O2SAT 97
--- NOTE | 2016-06-14 18:22 | NUR ---
Shift Summary Pt continues to be cooperative this afternoon, has read, listened to music, visited with staff. Pt ate 100% of supper. Pt wrote his wishes for what he wants to happen at court tomorrow. Shipyard Supervisor typed them out for him, pt has looked over them a couple of times. Denies pain. Pt hasn't slept at all this shift. No prns given this shift. Pt slept a half and hour this shift.
[2016-06-14] MEDS: TAMSULOSIN 0.4 MG CAPSULE PO SCH (19:36)
[2016-06-14] MEDS: QUETIAPINE 200 MG TABLET PO SCH (19:36)
[2016-06-14] MEDS: LORAZEPAM 1 MG TABLET PO SCH (19:36)
--- NOTE | 2016-06-14 21:50 | GENPN ---
[facility] Subjective Date DATE: 06/14/16 TIME: 09:21 Subjective/Severity of Illness Medications Current Medications Medications (Trade) Dose Ordered Sig/Tiff Start Time Stop Time Status Last Admin Dose Admin Miscellaneous Medication (May use PRN orders) 1 PRN PRN 06/01/16 22:45 Haloperidol (Haldol) 0.5 mg Q6H PRN 06/01/16 21:40 Lorazepam (Ativan) 0.5 mg Q6H PRN 06/01/16 21:40 06/08/16 13:43 0.5 MG Lorazepam (Ativan) 0.5 mg Q6H PRN 06/01/16 21:40 06/03/16 09:49 0.5 MG Haloperidol Lactate (Haldol 5 Mg/ml Inj) 0.5 mg Q6H PRN 06/01/16 21:40 06/03/16 09:49 0.5 MG Lorazepam (Ativan Intensol) 0.5 mg Q6H PRN 06/01/16 21:40 06/02/16 20:02 0.5 MG Haloperidol (Haldol Liquid) 0.5 mg Q6H PRN 06/01/16 21:40 06/08/16 20:10 0.5 MG Tamsulosin HCl (FLOMAX 0.4 mg) 0.4 mg HS 06/02/16 21:00 06/13/16 20:08 0.4 MG HCTZ/Lisinopril (Prinzide ) 1 tab DAILY 06/03/16 09:00 06/12/16 16:44 DC 06/07/16 08:44 1 TAB Cephalexin HCl (Keflex) 500 mg Q8HR 06/02/16 17:00 06/04/16 10:35 DC 06/04/16 07:45 500 MG Quetiapine Fumarate (Seroquel) 25 mg BID 06/02/16 21:00 06/03/16 18:50 DC 06/03/16 08:08 25 MG Quetiapine Fumarate (Seroquel) 50 mg BID 06/03/16 21:00 06/05/16 11:00 DC 06/05/16 07:54 50 MG Ciprofloxacin (Cipro) 250 mg Q12HR 06/05/16 09:00 06/09/16 17:33 DC 06/09/16 08:31 250 MG Quetiapine Fumarate (Seroquel) 100 mg BID 06/05/16 21:00 06/09/16 12:23 DC 06/09/16 08:32 100 MG Quetiapine Fumarate (Seroquel) 50 mg 16 06/08/16 16:00 06/09/16 12:23 DC 06/08/16 13:43 50 MG Lorazepam (Ativan) 1 mg HS 06/08/16 21:00 06/13/16 20:07 1 MG Quetiapine Fumarate (Seroquel) 100 mg ,15,06/09/16 15:00 06/10/16 10:53 DC 06/09/16 19:54 100 MG Lorazepam (Ativan) 1 mg DAILY PRN 06/09/16 12:30 06/10/16 13:06 1 MG Ciprofloxacin (Cipro) 250 mg Q12HR 06/09/16 21:00 06/11/16 09:00 DC 06/11/16 09:00 250 MG Quetiapine Fumarate (Seroquel) 100 mg ,,06/10/16 13:00 06/12/16 10:37 DC 06/12/16 07:42 100 MG Quetiapine Fumarate (Seroquel) 100 mg 08,13 06/12/16 13:00 06/14/16 07:36 100 MG Quetiapine Fumarate (Seroquel) 200 mg HS 06/12/16 21:00 06/13/16 20:08 200 MG Amlodipine Besylate (Norvasc) 2.5 mg DAILY 06/13/16 09:00 06/14/16 07:36 2.5 MG Subjective Patient seen and chart reviewed. Case discussed with treatment team. Patient has court for possible guardianship tomorrow and thus will be discharged prior to court hearing. Patient is cooperative upon interview but continues to have poor short-term memory and frequently says that he doesn't remember things or wasn't aware of them. He has been more cooperative with staff other than when he is triggered by his belongings being removed (typically when they are taken to laundry due to incontinence). It is believed that this is close to patient's baseline due to long history of homelessness. Patient does state that he is tolerating medications well though he doesn't think he needs them. He says in general he doesn't feel that people need to take medications because they are not natural, but he is willing to take them after discharge at least until f/u with a PCP. I do not believe that patient will be successful or adherent with meds after discharge if not assigned a guardian due to poor short-term memory and limited ability to follow through with medication regimen. I do believe that he needs a guardian and placement with 24 hour supervision to be successful , as recommended by KEITH. Patient denies SI, HI, AVH. He had interrupted sleep last night but slept an adequate quantity all together. Appetite is good. VSS. Time of Service: 08:15 Start Time: 09:30 Stop Time: 09:50 Care >50% of this visit spent in counseling/coordination care. [facility] Exam Vitals Vital Signs Date Time Temp Pulse Resp B/P Pulse Ox O2 Delivery O2 Flow Rate FiO2 06/14/16 07:35 67 18 06/14/16 07:31 98.2 153/82 95 Room Air Physical examination performed by the hospitalist. Height (Feet): 5 Height (Inches): 9.00 Mental Status Exam Muscle Strength/Tone: Normal Dressing: Casual Grooming: Fair Attitude: Cooperative Motor Activity: Normal Eye Contact: Poor Speech: Normal Volume: Normal Rhythm: Mumbled Sensory: Alert Orientation: Disoriented to time, Oriented to person Mood: Neutral Affect: Other (Mildly irritable, mostly redirectable) Rate of Thoughts: Other (Slightly delayed) Thought Organization: [place] Associations: Intact Abstract Reasoning: Poor abstract reasoning Thought Content: Other (No abnormal thought content elicited today) Perception/Psychotic: Perception Normal Attention Span/Concentration: Inattentive Language: Naming Intact Fund of Knowledge: Other (Decreased from baseline) Memory: Poor-recent Suicidal Ideation: Denies Homicidal Ideation: Denies Insight: Limited Judgment: Limited Impulse Control: Other (Limited) Laboratory Tests Test 06/13/16 15:29 White Blood Count 7.2T/MM3 Red Blood Count 4.27M/MM3 Hemoglobin 12.2GM/DL Hematocrit 37.5% Mean Corpuscular Volume 87.8UM3 Mean Corpuscular Hemoglobin 28.6UUG Mean Corpuscular Hemoglobin Concent 32.5GM/DL RDW Standard Deviation 42.0FL Platelet Count 256T/MM3 Mean Platelet Volume 8.8UM3 Immature Granulocyte % (Auto) 0.4% Neutrophils (%) (Auto) 58.0% Lymphocytes (%) (Auto) 32.1% Monocytes (%) (Auto) 6.7% Eosinophils (%) (Auto) 2.2% Basophils (%) (Auto) 0.6% Absolute Immature Granulocyte (auto 0.03T/MM3 Absolute Neutrophils (auto) 4.2T/MM3 Absolute Lymphocytes (auto) 2.3T/MM3 Absolute Monocytes (auto) 0.5T/MM3 Absolute Eosinophils (auto) 0.2T/MM3 Absolute Basophils (auto) 0.0T/MM3 Turbidity < 20 Sodium Level 142MEQ/L Potassium Level 4.4MEQ/L Chloride Level 105MEQ/L Carbon Dioxide Level 25MEQ/L Anion Gap 12MEQ/L Blood Urea Nitrogen 35.0MG/DL Creatinine 2.1MG/DL Glomerular Filtration Rate Calc 31 BUN/Creatinine Ratio 17RATIO Glucose Level 128MG/DL Calculated Osmolality 283MOSM/KG Calcium Level 9.3MG/DL Phosphorus Level 3.3MG/DL Magnesium Level 1.8MG/DL Icterus Index < 2 Albumin 3.9G/DL Chemistry Specimen Hemolysis < 15 Assessment and Plan (1) Schizophrenia Assessment: Admit patient to [facility]. Start Seroquel 25mg BID. Patient is also Keflex 500mg TID. 06/03/16: Increase Seroquel to 50mg BID: for psychosis 06/04/16 Continue current care 06/05/16 increase seroquel to 100mg po bid 06/06/16 Continue current care 06/07/16: Continue current care; will give PRN Ativan and see if patient allows blood work to be drawn today. 06/08/16: Increase Seroquel to 100mg PO q AM, 50mg PO daily at 1600 (patient becomes more agitated in evening), and 100mg PO q HS. Start Ativan 1mg PO q HS to target insomnia. Will consult ST for RIPPA and OT for KEITH. Will repeat SLUMS today or tomorrow. 06/09/16: Change Seroquel dose to 100mg PO TID (AM, 1500, HS). Will write order for PRN Ativan prior to lab draw. 06/10/16: Continue Seroquel 100mg PO TID but move afternoon dose to 1300. Order EKG for today to monitor QTc due to patient taking Seroquel as well as Ciprofloxacin. 06/11/16 Continue current care 06/12/16 Change Seroquel to 100mg at 0800 and 1300 and 200mg at HS 06/13/16 Continue current care 06/14/16: Continue current care; discharge tomorrow AM for purposed of court hearing for guardianship. (2) Major neurocognitive disorder (3) CKD (chronic kidney disease), stage III (4) BPH (benign prostatic hypertrophy) Cont. current psych. meds Continue current care; discharge tomorrow AM for purposed of court hearing for guardianship. BRYANT MATHEW MD Jun 14, 2016 09:21
[2016-06-14] MEDS ORDERED: QUET100T69 PO (21:56)
[2016-06-14] MEDS ORDERED: LORA-204 PO (21:56)
[2016-06-14] MEDS ORDERED: QUET200T PO (21:56)
--- NOTE | 2016-06-14 22:05 | NUR ---
SUMMARY PT ORIENTED ONLY TO PERSON, WHEN ASKED ABOUT PLACE, SAID "I FORGOT" AND LAUGHED. WHEN ASKED ABOUT TIME, HE SAID, "IT'S EITHER TUESDAY OR TUESDAY." RN INFORMED HE WAS IN THE HOSPITAL DN IT WAS JUNE 14 & PT NODDED AND LAUGHED. NO SX OF AGITATION OR AGGRESSION. TOOK MEDICATION WITHOUT DIFFICULTY. WAS WILLING TO LET STAFF LOCK UP SHOES AND CLOTHES. COOPERATIVE AND APPR WITH STAFF AND CARES. CURRENTLY IN BED, WITH ALARM ON.
[2016-06-15 00:44] VITALS: BP 161/95; PULSE 76; RESP 18; TEMP 98.2; O2SAT 95
--- NOTE | 2016-06-15 04:41 | NUR ---
Chart Check 24 hour chart check completed
--- NOTE | 2016-06-15 04:54 | NUR ---
Bedtime Pt. asleep at 2230. Pt. slept 0.50 hours on dayshift.
--- NOTE | 2016-06-15 07:24 | NUR ---
Summary Pt. is awake at 0630. Pt. is pleasant and cooperative. Pt. has a continent void. Pt. is asked to take a shower and he insists that he took one last night and would not take one this morning. Pt. is asked if would allow lab and he said, "no blood." Pt. is confused walking the halls asking if the laundry baskets are his and is able to be redirected by showing him his in his room. Pt. is not physically or verbally aggressive. No prn meds given. Pt. is in the dayroom with staff.
[2016-06-15 08:00] VITALS: BP 155/92; PULSE 75; RESP 16; TEMP 98.7; O2SAT 96
--- NOTE | 2016-06-15 08:00 | NUR ---
Pt Assessment Pt ambulatory and dressed and refuses shower offered by awake overnight counselor last night and this a.m. and by day shift nurse. Valuables obtained from [facility] and given to pt. and money counted and witnessed by Sonal TORRES and Kelly, Procurement Specialist. Pt assisted with packing his supplies, pt especially concerned about his belts and suspender strap. Pt in pleasant mood, states he wants to "get in a boat and float away." Pt is aware of transport today for court appearance. Pt has razors, butter knife and pocket knife, in belonging unit lock-up. These items NOT given to patient.
[2016-06-15 08:09] VITALS: PULSE 75; RESP 16
[2016-06-15] MEDS: QUETIAPINE 100 MG TABLET PO SCH (08:47)
[2016-06-15] MEDS: AMLODIPINE 2.5 MG TABLET PO SCH (08:47)
[2016-06-15] MEDS: LORAZEPAM 0.5 MG TABLET PO PRN (08:47)
--- NOTE | 2016-06-15 08:47 | NUR ---
PRN Med Pt received Ativan 0.5 mg po for transport for court.
[2016-06-15] MEDS ORDERED: LISINOPRIL/HCTZ 10mg/12.5mg TABLET PO SCH (09:00)
--- NOTE | 2016-06-15 09:05 | NUR ---
Dismissal Note Dismissal packet printed and given to transport staff with [facility] [employer], attendents [place]. Unit contact information given along with plans for follow-up care with PCP and MH professional as outlined in PHS. No pending labs on discharge. Pt accompanied to main entrance ambulatory in stable condition with RN and transporters and pt to be seen this a.m in [facility] [address] to determine mental status and if guardianship to be appointed with Per ALBRIGHT caseworker protective services present.
--- NOTE | 2016-06-15 09:56 | NUR ---
This SW spoke with pt's DCF worker, Per Hanna, about pt and his probate court hearing. Per was concerned about placement of pt. This SW explained process of guardianship and if pt did not have a guardian, DCF worker should discuss pt signing himself into a memory care unit such as [facility] in [place]. DCF worker will call this unit once court is completed to provide findings from the court hearing and decision upon the court for guardianship.
== END 2016-06-15 09:05 | disposition home or self-care (01) | DRG 884 ==
LOC: EDBD 14:20 → ED 14:20 → GEN 21:40
PROVIDERS: ADMIT Psychiatry & Neurology Psychiatry; ATTEND Psychiatry & Neurology Psychiatry
DX: F03.91 Unspecified dementia, unspecified severity, with behavioral disturbance (principal); N39.0 Urinary tract infection, site not specified; F20.9 Schizophrenia, unspecified; I12.9 Hypertensive chronic kidney disease with stage 1 through stage 4 chronic kidney disease, or unspecified chronic kidney disease; N18.3 Chronic kidney disease, stage 3 (moderate); R32 Unspecified urinary incontinence; D64.9 Anemia, unspecified; N40.0 Benign prostatic hyperplasia without lower urinary tract symptoms
CPT/HCPCS: 36415; 80048; 80061; 80069; 80306; 81001; 81003; 82746; 83036; 83735; 84443; 85025; 87077; 87086; 87186; 93005

== ENCOUNTER 2016-06-15 12:43 | Inpatient (IN) | payer MEDICARE, MEDICAID ==
[~2016-06-15] VITALS: Ht 185.4 cm; Wt 86.3 kg
[~2016-06-15 12:43] MED LIST: LISI1TAB9 PO; LORA-204 PO; QUET100T69 PO; QUET200T PO; TAMS0.4C47 PO
--- OUTSIDE RECORDS SUMMARY | 2016-06-15 12:47 | XMS REPORT | Continuity of Care Document ---
Author Author [facility] Address Unknown Phone Unavailable Allergies Medications Problems [...] Procedures Code Description [place] [id number] PSYCHIATRIC SERVICE/THERAPY Nuris Posey 04/15/2016 Results Encounters ACCT No. Visit Date/Time Discharge Status Pt. Type Provider Facility Loc./Unit Complaint [id number] 04/15/2016 10:00:00 04/15/2016 23:59:59 CLS Outpatient
--- OUTSIDE RECORDS SUMMARY | 2016-06-15 13:04 | XMS REPORT | Continuity of Care Document ---
Author Author [facility] Address Unknown Phone Unavailable Allergies Medications Problems [...] Procedures Code [place] [id number] PSYCHIATRIC SERVICE/THERAPY Nruis Posey 04/15/2016 Results Encounters ACCT No. Visit Date/Time Discharge Status Pt. Type Provider Facility Loc./Unit Complaint [id number] 04/15/2016 10:00:00 04/15/2016 23:59:59 CLS Outpatient
--- NOTE | 2016-06-15 13:20 | NUR ---
[facility] FINISHING DEPARTMENT SUPERVISOR IN TO SEE PATIENT.
--- NOTE | 2016-06-15 13:31 | ERPDOC ---
Departure Disposition Decision Date: Jun 15, 2016 Disposition Decision Time: 13:38 (KRISTI MORIN APRN) Disposition: 66 TO [facility] Impression Impression (KRISTI MORIN APRN) Impression: Primary Impression: Medical clearance for psychiatric admission Condition: Stable Seen By: Mid-level only (KRISTI MORIN APRN) Problems/Meds/Labs Reviewed?: Yes Medications reviewed and manag: Yes (KRISTI MORIN APRN) Follow up care ordered?: Yes Mental Status: Alert (KRISTI MORIN APRN) HPI - Psychosocial General Chief Complaint: Psychiatric Problems Stated Complaint: PSYCH EVAL Time Seen by MD: 12:54 Source: patient (KRISTI MORIN APRN) Time Seen by MD: 12:54 (TERRA ALEXANDER MD) HPI - Psychosocial Initial Comments 71 YO M brought to ED for medical clearance for [employer]. Patient had been dismissed today from [facility] due to a court date. After being dismissed for court date patient learned that court date had been postponed. Patient has not been out of physical contact of caregiver since dismissal. Staff from [facility] accompanies patient to ED for medical clearance to return to [facility]. [facility] staff states no labs are necessary since patient has not been out of physical contact of caregiver. (KRISTI MORIN APRN) Allergies: Coded Allergies: No Known Allergies (Unverified , 06/15/16) Past History Patient Surgical History Cystoscopy with Transurethral prostatectomy 12/30/15 (Dr. Lee) Skin graft Left arm (1967) Dental extractions (KRISTI MORIN APRN) Past Medical History Metabolic: hypertension Cardiac: DENIES: angina Respiratory: DENIES: COPD, asthma GI: DENIES: ulcers Male: BPH Neurological: DENIES: seizures Musculoskeletal: DENIES: back pain, neck pain Hematologic: anemia Psychological: dementia, schizophrenia (KRISTI MORIN APRN) Surgical History Reproductive/: TURP (KRISTI MORIN APRN) Family History Family PMH: FOUND: other (noncontributory) (KRISTI MORIN APRN) Social History Smoking Status: Former smoker Substance Use Type: former substance user Alcohol Intake: occasionally Housing: homeless Current Occupational Status: unemployed (KRISTI MORIN APRN) Review of Systems Constitutional Constitutional: DENIES: anorexia, appetite decrease, appetite increase, chills , dizziness, fever, insomnia, weakness (DONTAE MORINS A MOLDED RU[employer]ER GOODS CUTTER) Eyes General: DENIES: erythema, exudate Lids/Accessories: DENIES: erythema, swelling Vision: DENIES: blurring (DONTAE MORINS A MOLDED RU[employer] CUTTER) ENMT Ears: DENIES: pain Hearing: hearing loss Sinuses: DENIES: congestion, rhinorrhea Mouth/Throat: DENIES: sore throat (DONTAE MORINS A MOLDED [employer] CUTTER) Cardiovascular Cardiac: DENIES: chest pain, murmur Rhythm/Rate: DENIES: palpitations (MORINDONTAES A MOLDED [employer] CUTTER) Pulmonary Respiratory: DENIES: cough, dyspnea (MORINDONTAES A MOLDED [employer] CUTTER) GI Upper Abdomen: DENIES: nausea, pain, vomiting Lower Abdomen: DENIES: diarrhea, pain (DONTAE MORINS A MOLDED [employer] CUTTER) General: DENIES: pain (DONTAE MORINS A MOLDED [employer] CUTTER) Musculoskeletal General: DENIES: joint pain, pain, tenderness (DONTAE MORINS A MOLDED [employer] CUTTER) Integumentary Skin: DENIES: color change, itching, rash (DONTAE MORINS A MOLDED [employer] CUTTER) Neurological General: DENIES: ataxia, change in strength, numbness, paralysis/paresis, weakness (DONTAE MORINS A MOLDED [employer] CUTTER) Psychiatric Psychiatric: DENIES: anxiety, nervousness (DONTAE MORINS A MOLDED [employer] CUTTER) Physical Exam General General Nourishment: well nourished, well developed, no acute distress, adult General Body Habitus: well groomed (DONTAE MORINS A MOLDED [employer] CUTTER) Vitals and Pain First Documented Vital Signs Date Time Temp Pulse Resp B/P Pulse Ox O2 Delivery O2 Flow Rate FiO2 06/15/16 12:50 98.6 88 16 123/68 98 Room Air (TERRA ALEXANDER MD) Vitals and Pain Weight: Kilograms: 65.000 Height (feet): 5 Height (inches): 5.00 Triage Pain Scale: (DONTAE MORINS A MOLDED [employer] CUTTER) Eyes (brief) Eyes Brief: found: EOMI, PERRL (DONTAE MORINS Priya M[employer]ED [employer] CUTTER) ENMT (brief) ENMT Brief: FOUND: mucosa moist, other (unable to visualize TM due to cerumen) , NOT FOUND: nasal exudate, nasal swelling, pharnyx erythema (DONTAE MORINS A MOLDED [employer] CUTTER) Neck (brief) Neck: FOUND: trachea midline, NOT FOUND: adenopathy, spasm, tenderness, thyromegaly (KRISTI MORIN APRN) Respiratory (brief) Respiratory: FOUND: clear all bolanos, equal bilaterally, symmetrical (KRISTI MORIN APRN) Cardiovascular (brief) Cardiac: FOUND: regular rate, regular rhythm (KRISTI MORIN APRN) Abdomen (brief) Abdominal Brief: FOUND: bowel normo active x4, soft, NOT FOUND: distended, tender (KRISTI MORIN APRN) Musculoskeletal (brief) Musculoskeletal Brief: NOT FOUND: deformity, tenderness (KRISTI MORIN APRN) Integumentary (brief) Integumentary Brief: FOUND: dry, pink, warm (KRISTI MORIN APRN) Neurologic (brief) Neurological Brief: FOUND: CN w/o gross def to obs, motor-no gross deficits, sensory-no gross deficits, NOT FOUND: ataxia, gait w/o gross def to obs (KRISTI MORIN APRN) Psychiatric (brief) Psychiatric Brief: FOUND: alert, normal affect, oriented (KRISTI MORIN APRN ) Differential Diagnoses Considering: Anxiety, Dementia, Depression, Acute Psychosis (KRISTI MORIN APRN) Progress Progress Progress Staff from [facility] accompanies patient to [facility]. (KRISTI MORIN APRN) KRISTI MORIN APRN Jun 15, 2016 13:31 TERRA ALEXANDER MD Jun 15, 2016 14:03
--- NOTE | 2016-06-15 13:32 | NUR ---
NICOLE VISIT NICOLE LIU IN TO SEE PATIENT.
--- NOTE | 2016-06-15 13:50 | NUR ---
Admission Note White male aged 71 admitted from [facility] ER ambulatory accompanied by ER Staff. Pt was dismissed from this unit at 0905 this a.m. and was seen in [facility] system for guardianship hearing. Pt reports he does not "know why he is here" and then states he is "here to get food".Pt is dressed in multiple layers of clean clothing and has coat on also. Pt is cooperative and pleasant and allowed nurse to inventory belongings and billfold but will not give billfold to nurse to lock in safe. No skin issues noted on assessment. No family present and pt oriented to person and place, but does not know month or year.
--- OUTSIDE RECORDS SUMMARY | 2016-06-15 14:49 | XMS REPORT | Continuity of Care Document ---
Author Author [facility] Address Unknown Phone Unavailable Allergies Medications [...] Procedures Code Description [place] [id number] PSYCHIATRIC SERVICE/THERAPY Nuris Posey 04/15/2016 Results Encounters ACCT No. Visit Date/Time Discharge Status Pt. Type Provider Facility Loc./Unit Complaint [id number] 04/15/2016 10:00:00 04/15/2016 23:59:59 CLS Outpatient
[2016-06-15] MEDS ORDERED: LORAZEPAM 2 MG/ML INJECTION IM PRN (15:30)
[2016-06-15] MEDS ORDERED: LORAZEPAM 0.5 MG TABLET PO PRN (15:30)
[2016-06-15] MEDS ORDERED: PRN ORDERS MC (15:30)
[2016-06-15] MEDS ORDERED: HALOPERIDOL 5 MG/ML INJECTION IM PRN (15:30)
[2016-06-15] MEDS ORDERED: HALOPERIDOL 0.5 MG TABLET PO PRN (15:30)
[2016-06-15 15:51] VITALS: BP 152/83; PULSE 84; RESP 16; TEMP 98; O2SAT 94
[2016-06-15 16:41] VITALS: Ht 185.4 cm; Wt 86.3 kg
--- NOTE | 2016-06-15 17:14 | HPPDOC ---
MADHAVI TOLLIVER APRN 06/15/16 1657: HPI - Adult Date DATE: 06/15/16 TIME: 16:52 General Chief Complaint: schizophrenia History of Present Illness Marbin was re-admitted to [facility] on 06/15/16, after being discharged earlier for a court appearance. He was initially admitted on 06/02/16 for schizophrenia-related behavioral problems. During this time he was dx with UTI Morganella Morganii and Enterococcus Faecalis, and was treated with Cipro. Prior to this stay, he had a prolonged hospital course at [facility], which included psychiatric care, TURP for b/l hydronephrosis. His creatinine ranged from 2-2.6 while hospitalized, and he was dc home from [facility] on Lisinopril/HCTZ 20/25, Flomax, Seroquel 50 mg BID and 100 mg HS, Aricept 10 mg HS. Norvasc was started during [facility] hospitalization but discontinued d/t pedal edema. At time of DC from [facility], he was sent out with Rx for a lower dose of lisinopril/HCTZ. Since returning to [facility], he has had no complaints. When I visited with him, he was feeling very good. I asked him how court went, and he said it went great - "they let me loose". He returned to [facility], and checked himself back into [facility] on his own accord. Past Medical History Past Medical History Patient's Medical History: (1) Urinary incontinence (2) CKD (chronic kidney disease), stage III Permanent Comment: From 12/2015 through 03/2016 his creatinine has ranged from 2 -2.5 Last Edited By: Madhavi Tolliver on Jun 02, 2016 08:29 (3) BPH (benign prostatic hypertrophy) (4) Normocytic anemia (5) Major neurocognitive disorder (6) Schizophrenia (7) UTI (urinary tract infection) (8) Urine retention (9) HTN (hypertension) Surgical History Patient's Surgical History: Cystoscopy with Transurethral prostatectomy 12/30/15 (Dr. Lee) Skin graft Left arm (1967) Dental extractions Current Medications Home Meds Active Scripts Quetiapine Fumarate (Quetiapine Fumarate) 100 Mg Tablet, 100 MG PO for Agitation for 30 Days, #60 TAB Prov:BRYANT MATHEW MD 4/17/17 Quetiapine Fumarate (Seroquel) 200 Mg Tablet, 200 MG PO HS for Agitation for 30 Days, #30 TAB Prov:BRYANT MATHEW MD 06/14/16 Lorazepam (Ativan) 1 Mg Tablet, 1 MG PO HS for Insomnia for 30 Days, #30 TAB Prov:BRYANT MATHEW MD 06/14/16 Lisinopril/Hydrochlorothiazide (Lisinopril-Hctz 10-12.5 mg Tab) 1 Each Tablet, 1 TAB PO DAILY, #30 TAB Prov:MADHAVI TOLLIVER APRN 06/14/16 Tamsulosin HCl (Tamsulosin HCl) 0.4 Mg Cap.er.24h, 0.4 MG PO HS, #30 CAP Prov:MADHAVI TOLLIVER APRN 06/14/16 Discontinued Reported Medications [No current meds] No Conflict Check 06/01/16 Allergies: Coded Allergies: No Known Allergies (Unverified , 06/15/16) Family History Family History: Unobtainable Social History Smoking Status: Former smoker (quit 30 yrs ago) Substance Use Type: former substance user (per family) Alcohol Intake: occasionally Housing: homeless Current Occupational Status: unemployed Advance Directives: No DPOA for Healthcare Only Review of Systems Constitutional: DENIES: appetite decrease, fever, weakness Eyes Vision: DENIES: vision changes ENMT Sinuses: NOT FOUND: congestion Cardiovascular DENIES: chest pain Vascular: DENIES: pedal edema Pulmonary Respiratory: DENIES: cough GI Upper Abdomen: DENIES: vomiting Male: retention Musculoskeletal General: DENIES: joint swelling Integumentary Skin: DENIES: rash Neurological General: DENIES: seizures, weakness Psychiatric Psychiatric: emotional instability Hematologic/Lymphatic DENIES: anemia Allergic/Immunological frequent infections (recent UTI) All Other Systems All Other Systems: Reviewed (remainder of 10-point ROS Neg.) Physical Exam General General Nourishment: well nourished, well developed, thin Vital Signs Vital Signs Date Time Temp Pulse Resp B/P Pulse Ox O2 Delivery O2 Flow Rate FiO2 06/15/16 15:51 98.0 84 16 152/83 94 Room Air Height (Feet): 6 Height (Inches): 1.00 Eyes Brief: FOUND: PERRL, NOT FOUND: scleral icterus ENMT Brief: FOUND: mucosa moist, NOT FOUND: pharnyx erythema Neck Brief: FOUND: other (supple) Respiratory Auscultation: FOUND: normal, NOT FOUND: rales, rhonchi, wheezes Cardiovascular Auscultation: FOUND: S1, S2, regular Peripheral Pulses: 2+: Dorasalis Pedis (L), Dorsalis Pedis (R), Posterior Tibial (L), Posterior Tibial (R), Radial (L), Radial (R) Edema: 0: Anasarca, Arm (L), Arm (R), Face, Leg (L), Leg (R) Abdomen Inspection: NOT FOUND: distention Palpation: FOUND: soft, NOT FOUND: involuntary guarding, rebound, tender, voluntary guarding Auscultation: FOUND: normo active Musculoskeletal (brief) Musculoskeletal Brief: NOT FOUND: tenderness Integumentary (brief) Integumentary Brief: FOUND: dry, pink, warm Integumentary General: FOUND: dry, warm Color: FOUND: pink Neurologic (brief) Neurological Brief: FOUND: cranial 2-12 intact (grossly) Neurologic RN Documented GCS Psychiatric (brief) FOUND: alert, attentive, normal affect, oriented Assessment & Plan Problems: (1) Schizophrenia Status: Chronic (2) CKD (chronic kidney disease), stage III Status: Chronic (3) Urinary incontinence Status: Chronic (4) BPH (benign prostatic hypertrophy) Status: Chronic (5) Normocytic anemia Status: Chronic (6) Major neurocognitive disorder (7) UTI (urinary tract infection) Status: Resolved (8) Urine retention (9) HTN (hypertension) Status: Chronic Plan/Intensity of Service Agree with admission to [facility]. CKD stage III - Baseline Cr 2-2.5. Cont. Flomax. Labs last checked on 06/13 - cr 2.1. HTN - Lisinopril/HCTZ 12/09.5 - may consider increasing back up to 20/25 mg. Norvasc causes pedal edema but could certainly try low-dose if BP increases. Schizophrenia/dementia - per attending. Medically stable. Code Status Full Code, unverified Hospital Course Summary Disclaimer The hospital course summary below is not to be considered part of the above Progress Note. Hospital Course Summary 06/15/16 Agree with admission to [facility]. CKD stage III - Baseline Cr 2-2.5. Cont. Flomax. Labs last checked on 06/13 - cr 2.1. HTN - Lisinopril/HCTZ 10/12.5 - may consider increasing back up to 20/25 mg. Norvasc causes pedal edema but could certainly try low-dose if BP increases. Schizophrenia/dementia - per attending. Medically stable. ALEX BARDALES MD 06/15/16 2018: Past Medical History Current Medications Home Meds Active Scripts Quetiapine Fumarate (Quetiapine Fumarate) 100 Mg Tablet, 100 MG PO 08,13 for Agitation for 30 Days, #60 TAB Prov:BRYANT MATHEW MD 06/14/16 Quetiapine Fumarate (Seroquel) 200 Mg Tablet, 200 MG PO HS for Agitation for 30 Days, #30 TAB Prov:BRYANT MATHEW MD 06/14/16 Lorazepam (Ativan) 1 Mg Tablet, 1 MG PO HS for Insomnia for 30 Days, #30 TAB Prov:BRYANT MATHEW MD 06/14/16 Lisinopril/Hydrochlorothiazide (Lisinopril-Hctz 10-12.5 mg Tab) 1 Each Tablet, 1 TAB PO DAILY, #30 TAB Prov:MADHAVI TOLLIVER APRN 06/14/16 Tamsulosin HCl (Tamsulosin HCl) 0.4 Mg Cap.er.24h, 0.4 MG PO HS, #30 CAP Prov:MADHAVI TOLLIVER APRN 06/14/16 Discontinued Reported Medications [No current meds] No Conflict Check 06/01/16 Allergies: Coded Allergies: No Known Allergies (Unverified , 06/15/16) Assessment & Plan Plan/Intensity of Service Have independently interviewed and examined pt. Chart reviewed. Case discussed with my CABLE ARMORER. Above care plan developed with my supervision; agree with above. Doing well this evening. No specific c/o. Breathing well-not having cough or congestion. No chest pressure or pain. Eating well. No ab pain. Lungs: decreased, no distress CV: regular AB: soft nt/nd MSE: awake alert appropriate Plan: Agree with admission of pt to [facility]. Provide safe supportive environment. Psychiatry to manage and adjust psychoactive medications. Monitor BP. Encourage [facility] group participation. Medically stable for [facility] floor activities. MADHAVI TOLLIVER APRN Jun 15, 2016 16:57 ALEX BARDALES MD Jun 15, 2016 20:18
--- NOTE | 2016-06-15 18:09 | NUR ---
Sleep Time NO sleep time since admitted at 1350. Pt ate well and sits quiet in day room and does not interact with staff or other patients. No negative verbalization but continued to keep billfold on him, despite instruction that will be locked up in the safe.
[2016-06-15] MEDS: TAMSULOSIN 0.4 MG CAPSULE PO SCH (19:40)
[2016-06-15] MEDS: QUETIAPINE 200 MG TABLET PO SCH (19:40)
[2016-06-15] MEDS: LORAZEPAM 1 MG TABLET PO SCH (19:42)
[2016-06-15 20:18] VITALS: BP 163/95; PULSE 73; RESP 16; TEMP 98.2; O2SAT 96
[2016-06-15 20:22] VITALS: PULSE 73; RESP 16
[2016-06-15 22:05] VITALS: PULSE 76; RESP 16; O2SAT 97
--- NOTE | 2016-06-16 01:01 | NUR ---
Chart Check 24 hour chart check completed
--- NOTE | 2016-06-16 01:02 | NUR ---
Bed time Pt went to bed at 2100 and was asleep at 2114. No sleep during day
--- NOTE | 2016-06-16 01:03 | NUR ---
Mid shift status Pt was sitting in day room at beginning of shift. Pt pleasant and cooperative with assessment. Denies pain. Denies SOA. Compliant with all HS meds. Has not displayed any verbal or physical aggression. No behaviors. No PRNs. Report at shift change stated the pt was still holding on to his black wallet, refusing to allow staff to lock it in hospital safe. This wallet does contain $162. Pt, at HS, still refuses to release wallet to be kept in safe. Pt did allow this nurse to lock up his laced tennis shoes and suspender belt he uses. However, pt was already going to sleep, and did not allow for his belts to be locked in his cubby outside his room. Pt has been sleeping since 2114. Pt alert to person. Up ad sherine with BRP. Bed rails up x 2 and alarm on. Will continue to monitor
--- NOTE | 2016-06-16 05:55 | NUR ---
Summary Pt awake at 0500 due to incontinence. Sleep time for pt overnight is 7.75. Pt took shower this morning. Bed linens changed. Pt currently up in day room watching tv and drinking coffee. Pt has been pleasant and cooperative. Pt did show some agitation when he was getting ready to take a shower, when he could not find his shoes. Explained to him they were locked up for safe keeping last night. He then demanded to have his shoes in the BR for when he gets out of shower. Pt shoes were given to him. No verbal or physical aggression noted this shift. No behaviors. No PRNs. Currently in day room. Will continue to monitor
--- NOTE | 2016-06-16 07:30 | NUR ---
Pt. Assessment and Sleep Time Pt awake and sitting in chair in his room and cooperative with BP and physical assessment. Report from night staff, pt awake at 0500 and slept 7.75 hr. Oriented to person and states he is ready for breakfast. Continued dressed in layers, and coat on and two hats on.
[2016-06-16] MEDS: QUETIAPINE 100 MG TABLET PO SCH ×2 (07:55→13:16)
[2016-06-16] MEDS: LISINOPRIL/HCTZ 10mg/12.5mg TABLET PO SCH (07:55)
[2016-06-16 08:00] VITALS: BP 130/79; PULSE 69; RESP 16; TEMP 98.5; O2SAT 95
[2016-06-16 08:13] VITALS: PULSE 73; RESP 16
--- NOTE | 2016-06-16 12:28 | NUR ---
FAMILY COURT REGISTRAR--PSH/ADVANCE DIRECTIVE LSW met with pt. to review psychosocial history (PSH). Pt. is unreliable historian due to his confusion and disorganized thoughts. The information from his previous PSH was used to update current PSH. Pt. remains oriented to person. He knows he is in the hospital and sometimes he can remember the name, "Tavo." He is not able to remember this SW's name but he does recognize her face. Pt. remains pleasant and cooperative because he has established a trusting relationship. Pt. is full code. He does not want Eduardo Murcia acting as his DPOA. Pt. is agreeable to look for placement in fpc in [place] or [facility]. Pt. did agree to place most of his money in hospital safe ($152.00). He kept his black wallet and $10.00 in crespo and has the wallet in his pocket. Tx plan was not reviewed with pt. Disorganized thoughts and paranoid delusions impair pt's ability to comprehend severity of his mental illness and memory loss. Addendum: 06/16/16 at 1302 by YONAS RIZVI Amended: Links added.
--- NOTE | 2016-06-16 14:00 | NUR ---
Valuables To Safe Pt agreed for money to be locked up in safe, pt retained his billfold and one 5 dollar bill and 2 ones. Amount verified to be total of $152.00 locked in hospital safe. Addendum: 06/16/16 at 1423 by SO MARTE RN Valuables to safe Pt keep only one $10. bill for total of $152.00 to safe.
--- NOTE | 2016-06-16 14:53 | NUR ---
PROPERTY ACCOUNTANT--PM GROUP Pt. was in the bathroom being assisted by nursing during psychoeducational group facilitated by [facility].
--- NOTE | 2016-06-16 15:30 | NUR ---
Pt status Pt expresses concern about how long he will be here. Also asks many questions about locked cabinets and if he is the only one with belongings locked up. This nurse showed pt. another locked cabinet that had suitcase in it and pt then stopped indicating wrongly holding his items was occurring after further explanation that all patients on unit have belongings secured in locked cabinets.
[2016-06-16 16:23] VITALS: PULSE 73
[2016-06-16 16:31] VITALS: BP 120/69; PULSE 74; RESP 20; TEMP 98.2; O2SAT 97
--- NOTE | 2016-06-16 18:10 | NUR ---
Slum Assessment Score of 0 Pt indicated that this was "nonsense" and I don't care." Expressed self calmly but with sarcasm. 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
--- NOTE | 2016-06-16 18:20 | NUR ---
Shift Summary and Sleep Time Pt cooperative with medications and ate well. Eats frequently between meals, ice cream and drinks juices. Tends to isolate from other patients but will visit with staff at intervals, disorganized thoughts most of time. Sleep time since a.m. awake at 0500, .75 hour during the daytime.
[2016-06-16] MEDS: QUETIAPINE 200 MG TABLET PO SCH (19:43)
[2016-06-16] MEDS: TAMSULOSIN 0.4 MG CAPSULE PO SCH (19:43)
[2016-06-16] MEDS: LORAZEPAM 1 MG TABLET PO SCH (19:44)
[2016-06-16 20:56] VITALS: PULSE 79; RESP 18
[2016-06-16 21:11] VITALS: BP 129/70; PULSE 79; RESP 18; TEMP 98.2; O2SAT 93
--- NOTE | 2016-06-17 00:24 | NUR ---
Bed time Pt went to bed at 2114 and was sleeping at 2129. Pt slept total of .75 hours on day shift. Currently sleeping. Bed rails up x 2 and alarm on. Will continue to monitor
--- NOTE | 2016-06-17 00:24 | NUR ---
Chart Check 24 hour chart check completed
--- NOTE | 2016-06-17 00:26 | NUR ---
Mid shift status Pt was sitting in day room at beginning of shift. Pleasant and cooperative with assessment. Alert to person. Up ad sherine. Pt compliant with all HS meds. Pt has not displayed any verbal or physical aggression this shift. No behaviors. No exit seeking noted. No PRNs given. Currently sleeping. Bed rails up x 2 and alarm on. Will continue to monitor
--- NOTE | 2016-06-17 02:38 | NUR ---
Pt wake time status Pt woke at 0130 and was incontinent at that time. Pt changed his clothes and gave wet clothes to staff to wash for him. Pt is dressed and currently in day room having a pudding and juice. At this time, pt has slept 4 hours and is currently awake. Will continue to monitor
--- NOTE | 2016-06-17 05:30 | NUR ---
Summary Pt slept from 2129 to 129. Pt was incontinent of urine at 0. Pt allowed staff to take his wet clothes and wash them. Pt stayed up for a little while. At 0, pt wandered in the dining area by the windows then into day room looking through items on the counter. This nurse went to day room to check on pt and offered him a snack and juice. Pt started talking about wanting to find someone to take him to [place] in the morning. I asked pt what he wanted to go to [place] for. Pt then stated in a calm voice "If I don't get someone to take me to [place] and they plan on keeping me in here, then tomorrow I am going to bust out all these windows". I told pt he did not want to do that because that is not a good thing to do. Pt went on to say how he is being kept here and does not want to be here anymore. Pt then sat down to eat his snack. At 0, pt then walked to the nurses station, talking about wanting to walk out the door. He then started talking about having an earring and a necklace that he cannot find. He went on to say that someone stole them from him and he is getting tired of people stealing from him. I explained to pt I never saw him with the jewelry since he has been here. I also assured him that no one in this hospital has stole anything of his since his arrival. Pt stated "I wish I could believe that. There are some bad people and I just feel like kicking somebody's ass, that is what I am going to do". All the time the pt is speaking calmly. No agitation or raised voice. No behaviors. No verbal or physical aggression noted. No PRNs given. Pt remained calm while speaking with him. Asked pt if he wanted to try to get some more rest and pt agreed. Pt went back to his room at 0315 and was sleeping again at 0330. Pt was awake again at 0440 and got up and went to sit in day room. Pt went back to his room at 0545 to change clothes as he spilled the rest of his coffee in his lap. Coffee had been cooled down and did not burn pt. Pt currently in room. Alert to person. Up ad sherine. Will continue to monitor
[2016-06-17 08:00] VITALS: BP 120/74; PULSE 75; RESP 20; TEMP 98.3; O2SAT 93
[2016-06-17] MEDS: QUETIAPINE 100 MG TABLET PO SCH ×2 (08:01→13:08)
[2016-06-17] MEDS: LISINOPRIL/HCTZ 10mg/12.5mg TABLET PO SCH (08:02)
[2016-06-17 08:23] VITALS: PULSE 75; RESP 20
--- NOTE | 2016-06-17 10:22 | NUR ---
wake up note patient went to sleep at 2130 and woke up at 0440 this morning.
--- NOTE | 2016-06-17 11:04 | NUR ---
AUTOMATION SOFTWARE ENGINEER--AM GROUP Pt. was present and somewhat engaged in psychoeducational group facilitated by [facility]. Pt. is oriented to person only today and he admits he is tired because he did not sleep well last night. He sat in recliner in group area. Although his eyes were often closed, he did attempt to answer some of the questions asked of him. Patients were asked to identify those person(s) from their past who had an importance influence on their life. Patient identified his mother and grandmother as those individuals. Pt. remarked that his grandmother taught his mother piano and his mother taught him. He was able to describe his grandmother's two story home and he mentioned that she rented a room to someone who worked on the [employer]. Finished group by listening to variety of music from childhood. Pt. remained relaxed and cooperative for entire group.
--- NOTE | 2016-06-17 12:50 | NUR ---
STATUS Patient is AO x 1. speech is clear and appropriate, he is able to verbalize needs, patient denies any pain. He was cooperative with assessment, was compliant with morning medications, during lunch patient sat down to eat, this RN tried to cut the chicken for him, when he saw his food he got up and went to his room, when I asked him what's wrong patient said " that's not the food I ordered" This RN offered to order something different that he might like and patient respond " just let me be" patient was left alone and has been in his room in bed resting since then.
--- NOTE | 2016-06-17 15:23 | NUR ---
INSPECTOR SET UP AND LAY OUT--INDIVIDUAL Pt. sought out this SW after taking a short nap in his room. He is only Ox1 and was mumbling to himself. Pt. was talking about needing to find someone to take him back to [place]. This SW reassured pt. that he would be provided transportation once his court hearings are resolved. Pt. acted confused and said he didn't know anything about a court hearing. This SW reminded pt. about riding in a van to a hearing in [place]. Pt. started getting more anxious because he did not remember anything about a hearing. This SW asked PD to talk with patient and see if he can help pt. to sort through some of the confusion.
[2016-06-17 16:43] VITALS: BP 126/71; PULSE 74; RESP 16; TEMP 98.2; O2SAT 93
--- NOTE | 2016-06-17 18:31 | NUR ---
SHIFT SUMMARY Patient is AO x 1. Patient was cooperative with cares and assessment, compliant with medications, patient is able to verbalize needs, no hallucinations noted, no paranoia noted, no physical or verbally aggressive behaviors noted, patient denied any pain this shift, during the day he likes to go to the social media specialist office and visit with her, he also likes to go to the natural gas treating unit operator's office and visit with him. Patient has trouble chewing some foods since he has no teeth or dentures, he got upset at lunch time because he said he got something he did not order( see status note) patient ate 100 % of dinner. He also had snacks throughout the day. Patient socialized well with staff today. Patient denies needs or concerns at the moment.
[2016-06-17 19:33] LABS: BLOOD, URINE 1+ (NEGATIVE); COLOR,URINE YELLOW (YELLOW); LEUKOCYTE ESTERASE ,URINE 2+ (NEGATIVE); NITRITE,URINE NEGATIVE (NEGATIVE); UROBILINOGEN,URINE 0.2 EU/DL (NORMAL)
[2016-06-17 19:51] VITALS: BP 143/77; PULSE 76; RESP 16; TEMP 98.2; O2SAT 96
[2016-06-17 19:53] LABS: BACTERIA,URINE 1+ (NEGATIVE); RBC,URINE 0-1 /HPF (0-3); RENAL EPITHELIAL CELLS,URINE 0-1 /HPF; WBC CLUMPS,URINE FEW; WBC,URINE 20-30 /HPF (0-5)
[2016-06-17 19:54] LABS: SQUAMOUS EPITHELIAL CELL,UR 0-5
[2016-06-17] MEDS: LORAZEPAM 1 MG TABLET PO SCH (19:55)
[2016-06-17] MEDS: QUETIAPINE 200 MG TABLET PO SCH (19:55)
[2016-06-17] MEDS: TAMSULOSIN 0.4 MG CAPSULE PO SCH (19:55)
[2016-06-17 20:00] VITALS: RESP 18
--- NOTE | 2016-06-17 20:21 | GENHPPDOC ---
[facility] 06/16/16 Start Time: 18:40 Stop Time: 19:20 >50% of this visit spent in counseling/coordination care. Chief Complaint: Mood lability History of Present Illness Patient is a 71-year-old male with a history of schizophrenia as well as recently diagnosed major neurocognitive disorder. Patient was discharged from [facility] on 06/15/16 to participate in a court hearing for guardianship. That court date was postponed for ~2 weeks. Patient was homeless prior to most recent admission and would not be successful in providing for self or managing his medications if he were to return to this setting. KEITH Islas recommended 24-hour supervision and assistance with medication management, finances and transportation. There is no other acceptable and safe discharge plan at this time as patient has not yet been assigned a guardian. Patient is exhibiting some paranoia, particularly in regards to belongings, as well as mood lability though he is significant improved from previous admission. Past psych history: Patient has a history of schizophrenia but was not receiving psychiatric care prior to his most recent admission to [facility]. Psychosis: paranoia Dementia: memory impairment, other (Mood lability, poor impulse control) Anxiety: worries Past Medical History Past Medical History Patient's Medical History: (1) Urinary incontinence (2) CKD (chronic kidney disease), stage III Permanent Comment: From 12/2015 through 03/2016 his creatinine has ranged from 2 -2.5 Last Edited By: Madhavi Tolliver on Jun 02, 2016 08:29 (3) BPH (benign prostatic hypertrophy) (4) Normocytic anemia (5) Major neurocognitive disorder (6) Schizophrenia (7) UTI (urinary tract infection) (8) Urine retention (9) HTN (hypertension) Surgical History Patient's Surgical History: Cystoscopy with Transurethral prostatectomy 12/30/15 (Dr. Lee) Skin graft Left arm (1967) Dental extractions Current Medications Home Meds Active Scripts Quetiapine Fumarate (Quetiapine Fumarate) 100 Mg Tablet, 100 MG PO ,13 for Agitation for 30 Days, #60 TAB Prov:BRYANT MATHEW MD 06/14/16 Quetiapine Fumarate (Seroquel) 200 Mg Tablet, 200 MG PO HS for Agitation for 30 Days, #30 TAB Prov:BRYANT MATHEW MD 06/14/16 Lorazepam (Ativan) 1 Mg Tablet, 1 MG PO HS for Insomnia for 30 Days, #30 TAB Prov:BRYANT MATHEW MD 06/14/16 Lisinopril/Hydrochlorothiazide (Lisinopril-Hctz 10-12.5 mg Tab) 1 Each Tablet, 1 TAB PO DAILY, #30 TAB Prov:MADHAVI TOLLIVER APRN 06/14/16 Tamsulosin HCl (Tamsulosin HCl) 0.4 Mg Cap.er.24h, 0.4 MG PO HS, #30 CAP Prov:MADHAVI TOLLIVER APRN 06/14/16 Discontinued Reported Medications [No current meds] No Conflict Check 06/01/16 Allergies: Coded Allergies: No Known Allergies (Unverified , 06/15/16) Family History Family History: Unobtainable from patient Vaccines unknown unknown Social History Smoking Status: Former smoker (quit 30 yrs ago) Substance Use Type: former substance user (per family) Alcohol Intake: occasionally Housing: homeless Current Occupational Status: unemployed Advance Directives: No DPOA for Healthcare Only Patient improving with medication management and therapies, is adherent with medications on the unit, signed in voluntarily, able to develop relationships with staff on unit Review of Systems Constitutional: REPORTS: other (Interrupted sleep at times), DENIES: appetite decrease, chills, dizziness, fatigue, fever Cardiovascular Comments Denies chest pain, edema Pulmonary Comments Denies cough, SOA General: incontinence (frequent urinary incontinence) Neurological General: memory disturbances Psychiatric Psychiatric: anxiety, emotional instability, memory impairment All Other Systems All Other Systems: Reviewed (remainder of 10-point ROS Neg.) Generations Exam Vitals Vital Signs Date Time Temp Pulse Resp B/P Pulse Ox O2 Delivery O2 Flow Rate FiO2 06/16/16 21:11 98.2 79 18 129/70 93 Room Air Physical examination performed by the hospitalist. Height (Feet): 6 Height (Inches): 1.00 Mental Status Exam Muscle Strength/Tone: Normal Dressing: Casual Grooming: Fair Attitude: Suspicious (at times) Motor Activity: Normal Eye Contact: Fair Speech: Normal Volume: Normal Rhythm: Mumbled Sensory: Alert Orientation: Disoriented to time, Oriented to person Mood: Neutral Affect: Labile (anxious at times) Rate of Thoughts: Delayed Thought Organization: Confused Associations: Intact Abstract Reasoning: Poor abstract reasoning Thought Content: Paranoia (particularly in regards to belonging, improved from previous admissino) Perception/Psychotic: Perception Normal Attention Span/Concentration: Distractable Language: Naming Intact Fund of Knowledge: Other (Decreased) Memory: Poor-recent Suicidal Ideation: Denies Homicidal Ideation: Denies Insight: Limited Judgment: Limited Impulse Control: Other (Limited) Assessment and Plan (1) Schizophrenia Assessment: by history (2) Major neurocognitive disorder Assessment: moderate, with behavioral disturbance, vascular etiology probable (3) Urinary incontinence (4) BPH (benign prostatic hypertrophy) (5) CKD (chronic kidney disease), stage III (6) Normocytic anemia (7) HTN (hypertension) Continue evaluation and stabilization. Continue medications from recent discharge. Maintain safety precautions. Work with SW/CM to develop a safe discharge plan for patient; guardianship hearing postponed. Goals are to decrease mood lability and paranoid episodes. BRYANT MATHEW MD Jun 16, 2016 21:45
--- NOTE | 2016-06-17 21:15 | GENPN ---
[facility] Subjective Date DATE: 06/17/16 TIME: 21:11 Subjective/Severity of Illness Medications Current Medications Medications (Trade) Dose Ordered Sig/Tiff Start Time Stop Time Status Last Admin Dose Admin HCTZ/Lisinopril (Prinzide .5) 1 tab DAILY 06/16/16 09:00 06/17/16 08:02 1 TAB Lorazepam (Ativan) 1 mg HS 06/15/16 21:00 06/17/16 19:55 1 MG Quetiapine Fumarate (Seroquel) 100 mg 08,13 06/16/16 08:00 06/17/16 13:08 100 MG Quetiapine Fumarate (Seroquel) 200 mg HS 06/15/16 21:00 06/17/16 19:55 200 MG Tamsulosin HCl (FLOMAX 0.4 mg) 0.4 mg HS 06/15/16 21:00 06/17/16 19:55 0.4 MG Miscellaneous Medication (May use PRN orders) 1 PRN PRN 06/15/16 15:30 Haloperidol (Haldol) 0.5 mg Q6H PRN 06/15/16 15:30 Lorazepam (Ativan) 0.5 mg Q6H PRN 06/15/16 15:30 Lorazepam (Ativan) 0.5 mg Q6H PRN 06/15/16 15:30 Haloperidol Lactate (Haldol 5 Mg/ml Inj) 0.5 mg Q6H PRN 06/15/16 15:30 Subjective Patient seen and chart reviewed. Patient is calm and cooperative during interview, but states that he knows staff are stealing his stuff. He was reportedly restless overnight and agitated , concerned that someone had stole some jewelry and wanting to leave. Patient denies any SI, HI, AVH or physical complaints. No psychotropic PRNs were given in the past 24 hours. Appetite is good. VSS. Start Time: 10:20 Stop Time: 10:40 Care >50% of this visit spent in counseling/coordination care. Generations Exam Vitals Vital Signs Date Time Temp Pulse Resp B/P Pulse Ox O2 Delivery O2 Flow Rate FiO2 06/17/16 20:00 18 06/17/16 19:51 98.2 76 143/77 96 Room Air Physical examination performed by the hospitalist. Height (Feet): 6 Height (Inches): 1.00 Mental Status Exam Muscle Strength/Tone: Normal Dressing: Casual Grooming: Fair Attitude: Suspicious Motor Activity: Normal Eye Contact: Fair Speech: Normal Volume: Normal Rhythm: Mumbled Sensory: Alert Orientation: Disoriented to time, Oriented to person Mood: Neutral Affect: Labile Rate of Thoughts: Delayed Thought Organization: Tangential Associations: Illogical Abstract Reasoning: Poor abstract reasoning Thought Content: Paranoia (particularly in regards to belongings) Perception/Psychotic: Perception Normal Attention Span/Concentration: Inattentive Language: Naming Intact Fund of Knowledge: Other (Decreased) Memory: Poor-recent Suicidal Ideation: Denies Homicidal Ideation: Denies Insight: Limited Judgment: Limited Impulse Control: Other (Limited, though improved from previous) Laboratory Tests Test 06/17/16 19:23 Urine Collection Type Voided-not cc-midstr Urine Color Yellow Urine Turbidity Cloudy Urine pH 6.5 Urine Specific [place] 1.010 Urine Protein Negative Urine Glucose (UA) Negative Urine Ketones Negative Urine Blood 1+ Urine Nitrite Negative Urine Bilirubin Negative Urine Urobilinogen 0.2EU/DL Urine Leukocyte Esterase 2+ Urine RBC 0-1/HPF Urine WBC 20-30/HPF Urine WBC Clumps Few Urine Squamous Epithelial Cells 0-5 Urine Renal Epithelial Cells 0-1/HPF Urine Bacteria 1+ Urine Culture Indicated Cult not indicated Assessment and Plan (1) Schizophrenia Assessment: by history 06/17/16: Repeat UA to r/o UTI; if WNL may need additional evening PRN due to interrupted sleep, overnight episodic agitation. (2) Major neurocognitive disorder Assessment: moderate, with behavioral disturbance, vascular etiology probable (3) Urinary incontinence (4) BPH (benign prostatic hypertrophy) (5) CKD (chronic kidney disease), stage III (6) Normocytic anemia (7) HTN (hypertension) BRYANT MATHEW MD Jun 17, 2016 21:14
--- NOTE | 2016-06-17 22:00 | NUR ---
patient status Pt cooperative with assessment, meds, vitals, pt went to sleep at 21:30, will monitor pt.
--- NOTE | 2016-06-18 03:56 | NUR ---
Chart Check 24 hour chart check completed
--- NOTE | 2016-06-18 05:38 | NUR ---
SUMMARY PT IN BED SLEEPING AT 2300 START OF THIS RN SHIFT. PT REMAINED IN BED SLEEPING UNTIL 0350. PT AWOKE AT THIS TIME AND AMBULATED TO NURSE STATION. PT PLEASANT AND COOPERATIVE WITH STAFF AND REQUEST TO SIT IN DAY ROOM WITH TELEVISION ON. PT DID SLEEP AT TIMES WHILE SITTING IN RECLINER IN DAY ROOM. PT HAD NO HALLUCINATIONS, NO VERBAL OR PHYSICAL AGGRESSION. REPORTED FROM PRIOR RN PT HAD NO DIFFICULTIES WITH PT TAKING MEDICATIONS. PT THOUGHTS DURING CONVERSATION DURING THIS TIME WERE COHERENT AND ORGANIZED. PT SPOKE ABOUT STAFF AND HOW PLEASANT SOME STAFF MEMBERS WERE AND EASILY EXPRESSED HIS NEEDS TO STAFF. PT EXPRESSED NO PARANOID DELUSIONS DURING THIS TIME.
[2016-06-18 07:46] VITALS: BP 141/79; PULSE 64; RESP 16; TEMP 98; O2SAT 96
[2016-06-18] MEDS: QUETIAPINE 100 MG TABLET PO SCH ×2 (07:54→14:23)
[2016-06-18] MEDS: LISINOPRIL/HCTZ 10mg/12.5mg TABLET PO SCH (07:54)
[2016-06-18 07:58] VITALS: PULSE 64; RESP 16
--- NOTE | 2016-06-18 10:53 | NUR ---
MEDICINE AND HEALTH SERVICE MANAGER--AM GROUP Pt. was asleep in his room and did not participate in psychoeducational group facilitated by [facility].
--- NOTE | 2016-06-18 15:33 | GENPN ---
[facility] Subjective Date DATE: 06/18/16 TIME: 10:16 Subjective/Severity of Illness Medications Current Medications Medications (Trade) Dose Ordered Sig/Tiff Start Time Stop Time Status Last Admin Dose Admin HCTZ/Lisinopril (Prinzide .5) 1 tab DAILY 06/16/16 09:00 06/18/16 07:54 1 TAB Lorazepam (Ativan) 1 mg HS 06/15/16 21:00 06/17/16 19:55 1 MG Quetiapine Fumarate (Seroquel) 100 mg 08,13 06/16/16 08:00 06/18/16 07:54 100 MG Quetiapine Fumarate (Seroquel) 200 mg HS 06/15/16 21:00 06/17/16 19:55 200 MG Tamsulosin HCl (FLOMAX 0.4 mg) 0.4 mg HS 06/15/16 21:00 06/17/16 19:55 0.4 MG Miscellaneous Medication (May use PRN orders) 1 PRN PRN 06/15/16 15:30 Haloperidol (Haldol) 0.5 mg Q6H PRN 06/15/16 15:30 Lorazepam (Ativan) 0.5 mg Q6H PRN 06/15/16 15:30 Lorazepam (Ativan) 0.5 mg Q6H PRN 06/15/16 15:30 Haloperidol Lactate (Haldol 5 Mg/ml Inj) 0.5 mg Q6H PRN 06/15/16 15:30 Subjective Patient seen and chart reviewed. Case discussed with treatment team. Patient is socializing in technical program manager's office on approach and seems to be enjoying himself. He is very pleasant through interview. He says his mood is "happy." Patient denies any SI, HI, AVH or physical complaints. He says the staff here are treating him well and denies any paranoia. Per staff, he was significantly more confused during the day yesterday, unable to remember participating in an court hearing and stating that an impostor must have been acting as him. Patient did sleep a bit better last night than he had the previous night (~5 hours before waking). Patient appears to have UTI from UA ordered on 06/17. No psychotropic PRNs were given in the past 24 hours. Appetite is good. VSS. Start Time: 10:50 Stop Time: 11:10 Care >50% of this visit spent in counseling/coordination care. Generations Exam Vitals Vital Signs Date Time Temp Pulse Resp B/P Pulse Ox O2 Delivery O2 Flow Rate FiO2 06/18/16 07:58 64 16 06/18/16 07:46 98.0 141/79 96 Room Air Physical examination performed by the hospitalist. Height (Feet): 6 Height (Inches): 1.00 Mental Status Exam Muscle Strength/Tone: Normal Dressing: Casual Grooming: Fair Attitude: Cooperative Motor Activity: Normal Eye Contact: Good Speech: Normal Volume: Normal Rhythm: Mumbled Sensory: Alert Orientation: Disoriented to time, Disoriented to situation, Oriented to person Mood: Euthymic Affect: Labile (improving) Rate of Thoughts: Delayed Thought Organization: Confused Associations: Illogical (at times) Abstract Reasoning: Poor abstract reasoning Thought Content: Paranoia (mild compared to initial admission) Perception/Psychotic: Perception Normal Attention Span/Concentration: Distractable Language: Naming Intact Fund of Knowledge: Other (Decreased) Memory: Poor-recent Suicidal Ideation: Denies Homicidal Ideation: Denies Insight: Limited Judgment: Limited Impulse Control: Other (Limited, worse during times of more confusion or agitation) Laboratory Tests Test 06/17/16 19:23 Urine Collection Type Voided-not cc-midstr Urine Color Yellow Urine Turbidity Cloudy Urine pH 6.5 Urine Specific [place] 1.010 Urine Protein Negative Urine Glucose (UA) Negative Urine Ketones Negative Urine Blood 1+ Urine Nitrite Negative Urine Bilirubin Negative Urine Urobilinogen 0.2EU/DL Urine Leukocyte Esterase 2+ Urine RBC 0-1/HPF Urine WBC 20-30/HPF Urine WBC Clumps Few Urine Squamous Epithelial Cells 0-5 Urine Renal Epithelial Cells 0-1/HPF Urine Bacteria 1+ Urine Culture Indicated Cult not indicated Assessment and Plan (1) Schizophrenia Assessment: by history 06/17/16: Repeat UA to r/o UTI; if WNL may need additional evening PRN due to interrupted sleep, overnight episodic agitation. 06/18/16: Hospitalist plans to start antibiotics for UTI. Continue current psychotropic medications for the time being; monitor symptoms as UTI resolves. (2) Major neurocognitive disorder Assessment: moderate, with behavioral disturbance, vascular etiology probable (3) Urinary incontinence (4) BPH (benign prostatic hypertrophy) (5) CKD (chronic kidney disease), stage III (6) Normocytic anemia (7) HTN (hypertension) BRYANT MATHEW MD Jun 18, 2016 10:16
[2016-06-18 16:20] VITALS: BP 143/80; PULSE 74; RESP 20; TEMP 99; O2SAT 94
--- NOTE | 2016-06-18 16:57 | NUR ---
EPILEPSY PHYSICIAN--INDIVIDUAL Marbin Carey received certified letter today in C/O this SW. Letter contained notice of upcoming trial in regards to Guardianship hearing. Pt. is oriented to person only today. He did not seem to know he was in [place] and questioned why it was in the address on the letter. Pt. read every word on the documents and questioned what it was talking about. He does not remember a prior hearing but he remembers that his assistant prosecuting attorney, Stas Carias, is a "dirty, [id number]". He cussed and accused the assistant prosecuting attorney of doing all kinds of illegal things and could not understand why this SW would support the assistant prosecuting attorney. Multiple attempts were made to explain to the patient that the assistant prosecuting attorney was trying to prove to the court that the patient did not need a legal guardian. The patient had no understanding of the legal process and he thinks Stas is a "dirty bastard who is trying to take my money." This SW offered to meet with pt. next week to help him prepare for his next court hearing. Pt. is not able to rationally problem solve what he needs in order to successfully live independently. Pt. continued to appear concerned about the letter but did not continue to be agitated about it.
--- NOTE | 2016-06-18 17:05 | PNPDOC ---
Subjective Date DATE: 06/18/16 TIME: 16:58 Subjective Marbin was examined this morning while resting in the day room. He is without complaints of pain, shortness of breath, abdominal pain or dysuria. Appetite is good. Nursing reports some increased agitation and a repeat UA was obtained revealing 1+ blood, 2+ leukocyte esterase, 20-30 WBCs with 1+ bacteria. Objective Vital Signs Vital signs Vital Signs Date Time Temp Pulse Resp B/P Pulse Ox O2 Delivery O2 Flow Rate FiO2 06/18/16 16:20 99.0 74 20 143/80 94 Room Air Height (Feet): 6 Height (Inches): 1.00 Weight (Kilograms): 84.500 General General Appearance: Alert, Orientated x 2, Cooperative, No Acute Distress Eyes (Brief) Eyes: FOUND: EOMI ENMT (Brief) ENMT: FOUND: mucosa moist, normal dentition, NOT FOUND: pharnyx erythema Neck (Brief) Neck: FOUND: midline, NOT FOUND: adenopathy, carotid bruits, tracheal deviation Respiratory (Brief) Respiratory: FOUND: clear all bolanos, equal bilaterally, NOT FOUND: wheezes Cardiovascular (Brief) Cardiac: FOUND: regular rate, regular rhythm, NOT FOUND: murmur, pedal edema Capillary Refill: <2 sec Abdomen (Brief) Abdominal: FOUND: BS normo active x4, soft, NOT FOUND: distended, tender Lymphatic (Brief) Lymphatic: NOT FOUND: adenopathy Musculoskeletal (Brief) Musculoskeletal: NOT FOUND: tenderness Integumentary (Brief) Integumentary: FOUND: dry, pink, warm Neurologic (Brief) Neurological: FOUND: cranial 2-12 intact Psychiatric (Brief) Psychiatric: FOUND: alert, attentive, normal affect, oriented Microbiology Microbiology Microbiology Date/Time Source Procedure Growth Status 06/18/16 09:10 Not Provided Urine Culture - Preliminary CULTURE INITIATED - RESULTS PENDING Resulted Assessment & Plan Problems: (1) Schizophrenia Status: Chronic (2) CKD (chronic kidney disease), stage III Status: Chronic (3) Urinary incontinence Status: Chronic (4) BPH (benign prostatic hypertrophy) Status: Chronic (5) Normocytic anemia Status: Chronic (6) Major neurocognitive disorder (7) UTI (urinary tract infection) Status: Resolved (8) Urine retention (9) HTN (hypertension) Status: Chronic Plan/Intensity of Service 06/18/[address] Clark regarding your analysis results and increased agitation. She was recently treated for urine culture positive for Morganella Morganii and Enterococ Faecalis. He completed 7 days of Cipro coverage. Will place patient back on BID Cipro and wait for urine culture results Will recheck BMP tomorrow to follow renal function and electrolytes. Continue to monitor blood pressure, continue on Prinzide 12/09.5 Continued psychiatric management as per Dr. Clark's recommendation Code Status Full Code, unverified Hospital Course Summary Disclaimer The hospital course summary below is not to be considered part of the above Progress Note. Hospital Course Summary 06/15/16 Agree with admission to [facility]. CKD stage III - Baseline Cr 2-2.5. Cont. Flomax. Labs last checked on 06/13 - cr 2.1. HTN - Lisinopril/HCTZ 12/09.5 - may consider increasing back up to 20/25 mg. Norvasc causes pedal edema but could certainly try low-dose if BP increases. Schizophrenia/dementia - per attending. Medically stable. 06/18/[address] Clark regarding your analysis results and increased agitation. She was recently treated for urine culture positive for Morganella Morganii and Enterococ Faecalis. He completed 7 days of Cipro coverage. Will place patient back on BID Cipro and wait for urine culture results Will recheck BMP tomorrow to follow renal function and electrolytes. Continue to monitor blood pressure, continue on Prinzide 1012.5 Continued psychiatric management as per Dr. Clark's recommendation DELMA KOENIG APRN Jun 18, 2016 17:04
--- NOTE | 2016-06-18 19:38 | NUR ---
shift summary Patient has been pleasant cooperative with cares and assessment, compliant with medications, happy mood, able to make needs known. No PRN medications given no complains of pain, no inappropriate behaviors noted. Patient denies needs or concerns at the moment.
[2016-06-18] MEDS: CIPROFLOXACIN 500 MG TABLET PO SCH (20:39)
[2016-06-18] MEDS: QUETIAPINE 200 MG TABLET PO SCH (20:39)
[2016-06-18] MEDS: TAMSULOSIN 0.4 MG CAPSULE PO SCH (20:39)
[2016-06-18] MEDS: LORAZEPAM 1 MG TABLET PO SCH (20:39)
[2016-06-18 21:06] VITALS: BP 129/81; PULSE 65; RESP 16; TEMP 99; O2SAT 97
[2016-06-18 21:23] VITALS: RESP 18
--- NOTE | 2016-06-19 01:47 | NUR ---
Chart Check 24 hour chart check completed
--- NOTE | 2016-06-19 01:55 | NUR ---
Bed time Pt was asleep at 2215. No sleep during day. Currently sleeping. Bed rails up x 2 and alarm on. Will continue to monitor
--- NOTE | 2016-06-19 01:56 | NUR ---
Mid shift status Pt was sitting in day room watching tv at beginning of shift. Pt alert to person. Up ad sherine. Pleasant and cooperative with assessment. Has been smiling and happy this shift. Has not had any displays of verbal or physical aggression. No behaviors. No PRNs given. Pt compliant with all meds. Denies Pain. Denies SOA. Currently sleeping. Bed rails up x 2 and alarm on. Will continue to monitor
--- NOTE | 2016-06-19 05:49 | NUR ---
Summary Pt woke at 0515 due to incontinence. Pt was cleaned up and changed and bed linen.Pt was pleasant and cooperative. Staff got him a cup of coffee and he is currently sitting in day room with staff. Pt has not displayed any verbal or physical aggression. No PRNs given. Continent and incontinent this shift. Compliant with all meds. Alert to person. Up ad sherine. Will continue to monitor
[2016-06-19 08:25] VITALS: BP 134/77; PULSE 64; RESP 14; TEMP 98.4; O2SAT 98
[2016-06-19 08:30] VITALS: PULSE 64; RESP 14
--- NOTE | 2016-06-19 08:30 | NUR ---
Sleep: Pt slept from [id number]: 10 hours Pt awoke at 0830. Pt cooperative with vital signs when woken up. Will continue to monitor.
[2016-06-19] MEDS: LISINOPRIL/HCTZ 10mg/12.5mg TABLET PO SCH (09:17)
[2016-06-19] MEDS: CIPROFLOXACIN 500 MG TABLET PO SCH ×2 (09:17→19:44)
[2016-06-19] MEDS: QUETIAPINE 100 MG TABLET PO SCH ×2 (09:17→12:36)
--- NOTE | 2016-06-19 13:01 | GENPN ---
[facility] Subjective Date DATE: 06/19/16 TIME: 06:51 Subjective/Severity of Illness Medications Current Medications Medications (Trade) Dose Ordered Sig/Tiff Start Time Stop Time Status Last Admin Dose Admin HCTZ/Lisinopril (Prinzide .5) 1 tab DAILY 06/16/16 09:00 06/18/16 07:54 1 TAB Lorazepam (Ativan) 1 mg HS 06/15/16 21:00 06/18/16 20:39 1 MG Quetiapine Fumarate (Seroquel) 100 mg 08,13 06/16/16 08:00 06/18/16 14:23 100 MG Quetiapine Fumarate (Seroquel) 200 mg HS 06/15/16 21:00 06/18/16 20:39 200 MG Tamsulosin HCl (FLOMAX 0.4 mg) 0.4 mg HS 06/15/16 21:00 06/18/16 20:39 0.4 MG Miscellaneous Medication (May use PRN orders) 1 PRN PRN 06/15/16 15:30 Haloperidol (Haldol) 0.5 mg Q6H PRN 06/15/16 15:30 Lorazepam (Ativan) 0.5 mg Q6H PRN 06/15/16 15:30 Lorazepam (Ativan) 0.5 mg Q6H PRN 06/15/16 15:30 Haloperidol Lactate (Haldol 5 Mg/ml Inj) 0.5 mg Q6H PRN 06/15/16 15:30 Ciprofloxacin (Cipro) 500 mg Q12HR 06/18/16 21:00 06/18/16 20:39 500 MG Subjective Patient seen and chart reviewed. 71 year old male here from homelessness, police. He was admitted to [facility] in [place] for months and then he left the [place] he was sent to upon [place] from there. RN reports he has been more cooperative in recent days. He has responded well to Ativan at HS. He is upset this AM about some court proceedings. RN reports some ongoing suspiciousness but more smiling and more redirectable now. Just started Cipro for UTI. Tolerating well. Oriented to self. Goes out to courtyard w staff. No PRNs needed. Sleeping fairly well at night. Strong appetite. Ambulates well. Time of Service: 07:45 Start Time: 07:45 Stop Time: 08:00 Care >50% of this visit spent in counseling/coordination care. [facility] Exam Vitals Vital Signs Date Time Temp Pulse Resp B/P Pulse Ox O2 Delivery O2 Flow Rate FiO2 06/18/16 21:23 18 06/18/16 21:06 99.0 65 129/81 97 Room Air Physical examination performed by the hospitalist. Height (Feet): 6 Height (Inches): 1.00 Mental Status Exam Muscle Strength/Tone: Weak Dressing: Casual Grooming: Poor Attitude: Guarded Motor Activity: Normal Eye Contact: Fair Speech: Normal Orientation: Disoriented to time, Disoriented to situation, Oriented to person Mood: Irritable Affect: Restricted Thought Organization: Disorganized, Confused Associations: Illogical Thought Content: Paranoia Memory: Poor-recent Suicidal Ideation: None Homicidal Ideation: None Insight: Poor Judgment: Poor Impulse Control: Poor Assessment and Plan (1) Schizophrenia Assessment: by history 06/17/16: Repeat UA to r/o UTI; if WNL may need additional evening PRN due to interrupted sleep, overnight episodic agitation. 06/18/16: Hospitalist plans to start antibiotics for UTI. Continue current psychotropic medications for the time being; monitor symptoms as UTI resolves. 06/19/16: continue meds, abx started for UTI. Could titrate HS Seroquel more if needed. (2) Major neurocognitive disorder Assessment: moderate, with behavioral disturbance, vascular etiology probable (3) Urinary incontinence (4) BPH (benign prostatic hypertrophy) (5) CKD (chronic kidney disease), stage III (6) Normocytic anemia (7) HTN (hypertension) RACH GOOD MD Jun 19, 2016 06:54
--- NOTE | 2016-06-19 15:43 | NUR ---
mid-shift summary Pt remains alert and oriented x 2. Pt didn't participate in group activity with exercises this morning, awake before starting and then closed eyes for remainder of group. PT refused to do dominos. Pt likes the ipod and loves to listen to music, helps him with mood. Pt this morning frustrated with staying here states, "I want to go to [place]." Pt remains flat affect, but does have different facial expressions at times. Pt does most of own cares and is incontinent at times. Pt given pull ups to help with incontinence. Pt denies pain thus far. Pt took meds whole without difficulty. No physical or verbal aggression seen. Will continue to monitor. Fluids encouraged.
--- NOTE | 2016-06-19 16:00 | NUR ---
vital signs Pt refused 1600 vital signs.
--- NOTE | 2016-06-19 17:56 | NUR ---
Summary Pt took nap this afternoon for about 1 hour. Pt has been doing most of his cares and Pt given pull-up breif to wear for the day this morning. Pt accused staff or others of "stealing my headphones, right off my head when I was sleeping." Explained that staff took ipod to charge it after he woke up from his nap. Pt has delusional thinking that "everyone of these bastards is out to get my stuff. It has happenend to me in my room, out here and down there." Pt denies hearing any voices states, "I hate everyone of you, thats what I say." Pt didn't get physical aggressive. Pt denies wanting to hurt any of the staff or anyone and also denies wanting to hurt himself. Pt has been cooperative, but argumentative with this RN twice this whole shift. Pt now watching old shows on TV. PT remains to wear coat and put spoon and other books that around the unit in his coat pockets. Pt says he has had no BM today, but refuses MOM today. Pt has taken all meds whole without difficulty. Mouth checked after medication given. Will continue to monitor. Pt in no acute distress.
[2016-06-19] MEDS: TAMSULOSIN 0.4 MG CAPSULE PO SCH (19:44)
[2016-06-19] MEDS: LORAZEPAM 1 MG TABLET PO SCH (19:44)
[2016-06-19] MEDS: QUETIAPINE 200 MG TABLET PO SCH (19:44)
[2016-06-19 20:37] VITALS: BP 147/96; PULSE 75; RESP 16; TEMP 98.4; O2SAT 97
[2016-06-19 22:20] VITALS: PULSE 75; RESP 16
--- NOTE | 2016-06-20 00:43 | NUR ---
Chart Check 24 hour chart check completed
--- NOTE | 2016-06-20 01:00 | NUR ---
Bed time Pt fell to sleep at 2145. No sleep during day. Will continue to monitor
--- NOTE | 2016-06-20 01:09 | NUR ---
Mid shift status Pt was sitting in day room at beginning of shift. Pt was pleasant and cooperative with assessment. Alert to person. Up ad sherine. Pt did display some agitation due to not having his ear phones and music to listen to. He started saying he was tired of people stealing from him, and went through his routine of suspicions of how he cannot trust anyone. He then was asking "how the hell do I get out of here? I need to get out of here". Talked to pt for awhile trying to redirect his focus on to other topics of conversation. Redirection took time but was successful. Pt began smiling and joking. ROLLWAY WORKER was able to convince pt to get a shower this shift as he has been refusing the past few days. Once pt was out of shower, he was happy and smiling. I found some headphones and an iPod and took to pt to listen to. Pt was happy to be able to listen to music. He lay down listening to music and fell asleep at 2145. Pt compliant with all HS meds. Pt did not display any verbal or physical aggression. No behaviors. No PRNs. Encouraged fluids. Currently sleeping. Bed rails up x 2 and alarm on. Will continue to monitor
--- NOTE | 2016-06-20 05:05 | NUR ---
Summary Pt awake at 0415, sleeping a total of 6.5 hours overnight. Pt alert to person. Up ad sherine. Pt was given a cup of decaf coffee this morning. He is dressed for the day. Has been walking up and down jones. Very friendly and happy this morning, joking around with staff, smiling and laughing. Pt sat in day room for short time, then returned to his room. Pt currently listening to music with the headphones on. Pt continent this shift. No display of verbal or physical aggression. No behaviors. No PRNs given this shift. Currently in room having a snack. Will continue to monitor
[2016-06-20 08:00] VITALS: BP 128/82; PULSE 66; RESP 18; TEMP 97.8; O2SAT 93
[2016-06-20] MEDS: LISINOPRIL/HCTZ 10mg/12.5mg TABLET PO SCH (09:11)
[2016-06-20] MEDS: CIPROFLOXACIN 500 MG TABLET PO SCH (09:11)
[2016-06-20] MEDS: QUETIAPINE 100 MG TABLET PO SCH ×2 (09:17→13:47)
--- NOTE | 2016-06-20 09:20 | NUR ---
SLEEP 8.0 Hours Pt went to bed at 2130 last night and awoke once at 0400, back to sleep at 0530 and up for the day at 0730. Pt slept a total of 8.0 Hours as noted on the Q15min observation form.
--- NOTE | 2016-06-20 11:42 | GENPN ---
[facility] Subjective Date DATE: 06/20/16 TIME: 06:50 Subjective/Severity of Illness Medications Current Medications Medications (Trade) Dose Ordered Sig/Tiff Start Time Stop Time Status Last Admin Dose Admin HCTZ/Lisinopril (Prinzide .5) 1 tab DAILY 06/16/16 09:00 06/19/16 09:17 1 TAB Lorazepam (Ativan) 1 mg HS 06/15/16 21:00 06/19/16 19:44 1 MG Quetiapine Fumarate (Seroquel) 100 mg 08,13 06/16/16 08:00 06/19/16 12:36 100 MG Quetiapine Fumarate (Seroquel) 200 mg HS 06/15/16 21:00 06/19/16 19:44 200 MG Tamsulosin HCl (FLOMAX 0.4 mg) 0.4 mg HS 06/15/16 21:00 06/19/16 19:44 0.4 MG Miscellaneous Medication (May use PRN orders) 1 PRN PRN 06/15/16 15:30 Haloperidol (Haldol) 0.5 mg Q6H PRN 06/15/16 15:30 Lorazepam (Ativan) 0.5 mg Q6H PRN 06/15/16 15:30 Lorazepam (Ativan) 0.5 mg Q6H PRN 06/15/16 15:30 Haloperidol Lactate (Haldol 5 Mg/ml Inj) 0.5 mg Q6H PRN 06/15/16 15:30 Ciprofloxacin (Cipro) 500 mg Q12HR 06/18/16 21:00 06/19/16 19:44 500 MG Subjective Patient seen and chart reviewed. 71 year old male here from homelessness, police. He was admitted to [facility] in [place] for months and then he left the [place] he was sent to upon DC from there. RN reports he remains confused and just oriented to self today. RN reports he was a bit agitated about losing his headphones last night, but this morning has been much more pleasant. Slept 6.5 hours overnight. Appetite good. Remains continent. Suspiciousness at times is biggest problem. No PRNs given. Remains on Cipro. Time of Service: 07:45 Start Time: 07:45 Stop Time: 08:00 Care >50% of this visit spent in counseling/coordination care. [facility] Exam Vitals Vital Signs Date Time Temp Pulse Resp B/P Pulse Ox O2 Delivery O2 Flow Rate FiO2 06/19/16 22:20 75 16 06/19/16 20:37 98.4 147/96 97 Room Air Physical examination performed by the hospitalist. Height (Feet): 6 Height (Inches): 1.00 Mental Status Exam Muscle Strength/Tone: Normal Dressing: Casual Grooming: Poor Attitude: Cooperative, Guarded Motor Activity: Normal Eye Contact: Fair Speech: Normal Sensory: Alert Orientation: Oriented to person Mood: Neutral Affect: Congruent Thought Organization: Disorganized, Confused Thought Content: Paranoia Suicidal Ideation: Denies Homicidal Ideation: Denies Insight: Poor Judgment: Poor Impulse Control: Poor Assessment and Plan (1) Schizophrenia Assessment: by history 06/17/16: Repeat UA to r/o UTI; if WNL may need additional evening PRN due to interrupted sleep, overnight episodic agitation. 06/18/16: Hospitalist plans to start antibiotics for UTI. Continue current psychotropic medications for the time being; monitor symptoms as UTI resolves. 06/19/16: continue meds, abx started for UTI. Could titrate HS Seroquel more if needed. 06/20/16: Increase Seroquel to 300mg PO q HS to target suspiciousness. Monitor for daytime sedation and orthostasis. (2) Major neurocognitive disorder Assessment: moderate, with behavioral disturbance, vascular etiology probable (3) Urinary incontinence (4) BPH (benign prostatic hypertrophy) (5) CKD (chronic kidney disease), stage III (6) Normocytic anemia (7) HTN (hypertension) RACH GOOD MD Jun 20, 2016 06:53
--- NOTE | 2016-06-20 12:53 | NUR ---
Status Pt was cooperative with assessment, and medications. Pt was more cooperative today than on previous shifts. Pt has had no behaviors so far this shift and no PRN medications have been given. Pt has spent a majority of the shift so far in his room reading. Pt eats well and is able to make his needs known.
[2016-06-20 16:00] VITALS: BP 103/67; PULSE 63; RESP 18; TEMP 98.2; O2SAT 96
--- NOTE | 2016-06-20 16:22 | PNPDOC ---
Subjective Date DATE: 06/20/16 TIME: 16:09 Subjective Marbin is seen in his room. Observed taking his medications from nurse without difficulty. He states "I remember you" (I had seen him during his last stay). He states "I like you- you look nice." Rubs the arm of my jacket and states that he likes it. As I leave his room, he walks with me and mirrors my activity (stopping when I stopped, etc). I told him that I would have to leave to go into the nursing station, and he would not be able to come with me. He then went down the jones and started knocking on closed doors and calling out. I was then able to slip out of the unit unobserved by patient, but I suspect he was intent on trying to leave the unit with me. Continues to wear two hats and a thick jacket. He still has intermittent behaviors per nursing notes. Not happy about impending placement. Objective Vital Signs Vital signs Vital Signs Date Time Temp Pulse Resp B/P Pulse Ox O2 Delivery O2 Flow Rate FiO2 06/20/16 08:00 97.8 66 18 128/82 93 Room Air Height (Feet): 6 Height (Inches): 1.00 Weight (Kilograms): 84.500 General General Appearance: Alert, Cooperative, No Acute Distress Comments Well groomed. Fairly pleasant with me. Eyes (Brief) Eyes: FOUND: EOMI, PERRL, NOT FOUND: scleral icterus Neck (Brief) Neck: FOUND: midline, NOT FOUND: JVD, nuchal rigidity, spasm Respiratory (Brief) Respiratory: FOUND: clear all bolanos, equal bilaterally, symmetrical, NOT FOUND : rales, wheezes Cardiovascular (Brief) Cardiac: FOUND: regular rate, regular rhythm, NOT FOUND: murmur, pedal edema Abdomen (Brief) Abdominal: FOUND: BS normo active x4, soft, NOT FOUND: distended, tender Extremities (Brief) Extremity : Extremity Finding: NOT FOUND: edema Musculoskeletal (Brief) Musculoskeletal: NOT FOUND: deformity, loss of motion Integumentary (Brief) Integumentary: FOUND: dry, warm Psychiatric (Brief) Psychiatric: FOUND: alert, oriented Microbiology Microbiology Microbiology Date/Time Source Procedure Growth Status 06/18/16 09:10 Not Provided Urine Culture - Final Enterococ Faecalis - (Group D) Complete Assessment & Plan Problems: (1) Schizophrenia Status: Chronic (2) CKD (chronic kidney disease), stage III Status: Chronic (3) Urinary incontinence Status: Chronic (4) BPH (benign prostatic hypertrophy) Status: Chronic (5) Normocytic anemia Status: Chronic (6) Major neurocognitive disorder (7) UTI (urinary tract infection) Status: Resolved Assessment & Plan: Enterococcus, sens. Zyvox, Vanco (8) Urine retention (9) HTN (hypertension) Status: Chronic Plan/Intensity of Service 06/20/16- Mood/cognition remains at baseline. Will need guardianship, placement. Chart reviewed- he does have VSE on urine cx- Cipro will not cover. Do not want to use Zyvox- multiple severe interactions with psych meds. Try to avoid Vanco given IV dosing. Will try some Amoxil- recommend recheck UA after 7 days of treatment. Will repeat CBC in AM. Continues supportive care. Await placement. Code Status Full Code, unverified Hospital Course Summary Disclaimer The hospital course summary below is not to be considered part of the above Progress Note. Hospital Course Summary 06/15/16 Agree with admission to [facility]. CKD stage III - Baseline Cr 2-2.5. Cont. Flomax. Labs last checked on 06/13 - cr 2.1. HTN - Lisinopril/HCTZ 12/09.5 - may consider increasing back up to 20/25 mg. Norvasc causes pedal edema but could certainly try low-dose if BP increases. Schizophrenia/dementia - per attending. Medically stable. 06/18/[address] Clark regarding your analysis results and increased agitation. She was recently treated for urine culture positive for Morganella Morganii and Enterococ Faecalis. He completed 7 days of Cipro coverage. Will place patient back on BID Cipro and wait for urine culture results Will recheck BMP tomorrow to follow renal function and electrolytes. Continue to monitor blood pressure, continue on Prinzide 12/09.5 Continued psychiatric management as per Dr. Clark's recommendation 06/20/16- Mood/cognition remains at baseline. Will need guardianship, placement. Chart reviewed- he does have VSE on urine cx- Cipro will not cover. Do not want to use Zyvox- multiple severe interactions with psych meds. Try to avoid Vanco given IV dosing. Will try some Amoxil- recommend recheck UA after 7 days of treatment. Will repeat CBC in AM. Continues supportive care. Await placement. HALEY MARLEY AUTO REPAIR SHOP MANAGER Jun 20, 2016 16:13
--- NOTE | 2016-06-20 17:44 | NUR ---
Summary Pt was cooperative throughout the shift and complied with requests. Pt had no complaints of pain or discomfort and no behaviors this shift. Pt had no PRN medications and spent a majority of the shift in his room reading through his paper work. Pt came out to the dining room for all meals. Pt is currently in his room resting.
[2016-06-20 20:00] VITALS: BP 127/82; PULSE 70; RESP 18; TEMP 97.1; O2SAT 94
[2016-06-20] MEDS: QUETIAPINE 200 MG TABLET PO SCH (21:35)
[2016-06-20] MEDS: TAMSULOSIN 0.4 MG CAPSULE PO SCH (21:35)
[2016-06-20] MEDS: LORAZEPAM 1 MG TABLET PO SCH (21:36)
[2016-06-20] MEDS: AMOXICILLIN 875 MG TABLET PO SCH (21:43)
[2016-06-21 03:03] VITALS: PULSE 60; RESP 18
--- NOTE | 2016-06-21 03:12 | NUR ---
Chart Check 24 hour chart check completed
--- NOTE | 2016-06-21 03:41 | NUR ---
Bedtime Pt. asleep at 0045. Pt. did take short nap of 0.5 hours this evening.
--- NOTE | 2016-06-21 03:42 | NUR ---
Status Pt. is napping in bed on approach. Pt. is confused and has mumbled speech. Pt. is compliant with meds, assessment and vitals. Pt. is not suspicious this evening. Pt. teases staff and smiles and visits with staff while watching tv. No verbal or physical aggression is noted or reported. Pt. is incontinent of urine and allows staff to take his clothing to be washed without complaint. Pt. is resting in bed at this time.
--- NOTE | 2016-06-21 06:50 | NUR ---
Summary Pt. has remained asleep since bedtime at 0045. Pt. has been pleasant and cooperative. Pt. is compliant with meds and cares. No verbal or physical aggression noted or reported. No prn meds given. Pt. is resting in bed at this time.
[2016-06-21 08:35] LABS: BASOPHILS % (AUTO) 0.7 % (0-2); EOSINOPHILS # (AUTO) 0.2 T/MM3 (0-0.5); EOSINOPHILS % (AUTO) 4.2 % (0-4); HCT - HEMATOCRIT 40.5 % (41-53); HGB - HEMOGLOBIN 13.3 GM/DL (13.5-17.5); IMMATURE GRANULOCYTE # (AUTO) 0.02 T/MM3 (0.00-0.03); IMMATURE GRANULOCYTE % (AUTO) 0.4 % (0.0-0.5); LYMPHOCYTES # (AUTO) 1.4 T/MM3 (1-4.8); LYMPHOCYTES % (AUTO) 26.3 % (23-45); MEAN CORPUSCULAR HGB 28.7 UUG (26-34); MEAN CORPUSCULAR HGB CONC(MCHC 32.8 GM/DL (31-37); MEAN CORPUSCULAR VOLUME 87.5 UM3 (80-100); MEAN PLATELET VOLUME 9.5 UM3 (9.4-12.4); MONOCYTES # (AUTO) 0.3 T/MM3 (0-0.8); MONOCYTES % (AUTO) 5.9 % (0-9.0); NEUTROPHILS #(AUTO)-ABSOLUTE 3.4 T/MM3 (1.8-7.7); NEUTROPHILS % (AUTO) 62.5 % (33-66); RED BLOOD COUNT 4.63 M/MM3 (4.50-5.90); WBC - WHITE BLOOD COUNT 5.4 T/MM3 (4.5-11.0)
[2016-06-21] MEDS: QUETIAPINE 100 MG TABLET PO SCH ×2 (08:36→12:31)
[2016-06-21] MEDS: AMOXICILLIN 875 MG TABLET PO SCH (08:36)
[2016-06-21] MEDS: LISINOPRIL/HCTZ 10mg/12.5mg TABLET PO SCH (08:36)
[2016-06-21 08:45] VITALS: BP 120/65; PULSE 88; RESP 18; TEMP 98.2; O2SAT 95
--- NOTE | 2016-06-21 09:00 | NUR ---
SLEEP 6.50 Hours Pt went to bed at 0045 this morning and awoke at 0715. Pt slept a total of 6.5 hours as documented on the 15 minute observation forms.
--- NOTE | 2016-06-21 13:57 | PNPDOC ---
Subjective Date DATE: 06/21/16 TIME: 13:47 Subjective Marbin was walking in the hallway and started visiting with me. He asked why he was here, and I reminded him that he checked himself back in after his court appearance, but he didn't recall any of this. He displayed flight of ideas, and his conversation did not make sense. One moment he complimented my jacket, then the next he talked about his finger (he had a bandaid placed over where lab stuck his fingertip this morning), then started accusing people of taking his money. He was redirected by a staff member, who took him to get some ice cream. Objective Vital Signs Vital signs Vital Signs Date Time Temp Pulse Resp B/P Pulse Ox O2 Delivery O2 Flow Rate FiO2 06/21/16 08:45 98.2 88 18 120/65 95 Room Air Height (Feet): 6 Height (Inches): 1.00 Weight (Kilograms): 84.500 General General Appearance: Alert, Well Developed, No Acute Distress Respiratory (Brief) Comments no distress Abdomen (Brief) Abdominal: NOT FOUND: distended Extremities (Brief) Extremity : Extremity Finding: NOT FOUND: edema Musculoskeletal (Brief) Musculoskeletal: NOT FOUND: deformity Integumentary (Brief) Integumentary: FOUND: dry, pink Psychiatric (Brief) Psychiatric: FOUND: alert Comments steady gait Laboratory Laboratory Laboratory Tests 06/21/16 08:21 Assessment & Plan Problems: (1) Schizophrenia Status: Chronic (2) CKD (chronic kidney disease), stage III Status: Chronic (3) Urinary incontinence Status: Chronic (4) BPH (benign prostatic hypertrophy) Status: Chronic (5) Normocytic anemia Status: Chronic (6) Major neurocognitive disorder (7) UTI (urinary tract infection) Status: Resolved Assessment & Plan: Enterococcus, sens. Zyvox, Vanco (8) Urine retention (9) HTN (hypertension) Status: Chronic Plan/Intensity of Service Enterococcus UTI - only sensitive to Zyvox and Vanco. Amoxil was started on 06/20 - monitor closely and recheck UA around 06/27/16. Checked interactions between Zyvox, seroquel and haldol - no interactions noted. Will start Zyvox 600 mg BID x 7 days. CBC done this am - WBC normal; hgb 13.3. Will check BMP on blood in lab (if able ) to f/u on CKD and recent Cipro use. Psych notes reviewed - Seroquel HS dose increased to 300 mg. Code Status Full Code, unverified Hospital Course Summary Disclaimer The hospital course summary below is not to be considered part of the above Progress Note. Hospital Course Summary 06/15/16 Agree with admission to [facility]. CKD stage III - Baseline Cr 2-2.5. Cont. Flomax. Labs last checked on 06/13 - cr 2.1. HTN - Lisinopril/HCTZ 12/09.5 - may consider increasing back up to 20/25 mg. Norvasc causes pedal edema but could certainly try low-dose if BP increases. Schizophrenia/dementia - per attending. Medically stable. 06/18/[address] Clark regarding your analysis results and increased agitation. She was recently treated for urine culture positive for Morganella Morganii and Enterococ Faecalis. He completed 7 days of Cipro coverage. Will place patient back on BID Cipro and wait for urine culture results Will recheck BMP tomorrow to follow renal function and electrolytes. Continue to monitor blood pressure, continue on Prinzide 12/09.5 Continued psychiatric management as per Dr. Clark's recommendation 06/20/16- Mood/cognition remains at baseline. Will need guardianship, placement. Chart reviewed- he does have VSE on urine cx- Cipro will not cover. Do not want to use Zyvox- multiple severe interactions with psych meds. Try to avoid Vanco given IV dosing. Will try some Amoxil- recommend recheck UA after 7 days of treatment. Will repeat CBC in AM. Continues supportive care. Await placement. 06/21/16 Enterococcus UTI - only sensitive to Zyvox and Vanco. Amoxil was started on 06/20 - monitor closely and recheck UA around 06/27/16. Checked interactions between Zyvox, seroquel and haldol - no interactions noted. Will start Zyvox 600 mg BID x 7 days. CBC done this am - WBC normal; hgb 13.3. Will check BMP on blood in lab (if able ) to f/u on CKD and recent Cipro use. Psych notes reviewed - Seroquel HS dose increased to 300 mg. MADHAVI TOLLIVER RESTAURANT SHIFT SUPERVISOR Jun 21, 2016 13:52
--- NOTE | 2016-06-21 14:54 | NUR ---
Status Pt was cooperative with assessment and medications, pt performed his own cares. Pt has had no behaviors so far this shift and no PRN medications have been given. Pt has spent a majority of the shift so far in his room reading a book. Pt eats well and is able to make his needs known. pt is currently in his room resting.
[2016-06-21 16:37] VITALS: BP 117/79; PULSE 80; RESP 18; TEMP 98.3; O2SAT 95
--- NOTE | 2016-06-21 17:36 | GENPN ---
[facility] Subjective Date DATE: 06/21/16 TIME: 15:09 Subjective/Severity of Illness Medications Current Medications Medications (Trade) Dose Ordered Sig/Tiff Start Time Stop Time Status Last Admin Dose Admin HCTZ/Lisinopril (Prinzide .5) 1 tab DAILY 06/16/16 09:00 06/21/16 08:36 1 TAB Lorazepam (Ativan) 1 mg HS 06/15/16 21:00 06/20/16 21:36 1 MG Quetiapine Fumarate (Seroquel) 100 mg 08,13 06/16/16 08:00 06/21/16 12:31 100 MG Quetiapine Fumarate (Seroquel) 200 mg HS 06/15/16 21:00 06/20/16 06:56 DC 06/19/16 19:44 200 MG Tamsulosin HCl (FLOMAX 0.4 mg) 0.4 mg HS 06/15/16 21:00 06/20/16 21:35 0.4 MG Miscellaneous Medication (May use PRN orders) 1 PRN PRN 06/15/16 15:30 Haloperidol (Haldol) 0.5 mg Q6H PRN 06/15/16 15:30 Lorazepam (Ativan) 0.5 mg Q6H PRN 06/15/16 15:30 Lorazepam (Ativan) 0.5 mg Q6H PRN 06/15/16 15:30 Haloperidol Lactate (Haldol 5 Mg/ml Inj) 0.5 mg Q6H PRN 06/15/16 15:30 Ciprofloxacin (Cipro) 500 mg Q12HR 06/18/16 21:00 06/20/16 16:22 DC 06/20/16 09:11 500 MG Quetiapine Fumarate (Seroquel) 300 mg HS 06/20/16 21:00 06/20/16 21:35 300 MG Amoxicillin (Amoxil) 875 mg Q12HR 06/20/16 21:00 06/21/16 15:03 DC 06/21/16 08:36 875 MG Linezolid (Zyvox) 600 mg Q12HR 06/21/16 21:00 06/28/16 09:01 Subjective Patient seen and chart reviewed. Case discussed with treatment team. Patient is in his room on approach and enjoys socializing during interview, but seems a bit irritable at times. Patient has a sarcastic sense of humor and so it is difficult to tell when he is joking. However, he is redirectable through interview without becoming agitated. He states that he can't remember anything about taking medications, why he needs to take them, having a court hearing, etc. He says he would like to leave the [facility] upon discharge, and then asks me to "find him a ." Patient denies SI, HI, AVH, or adverse side effects related to medications though he doesn't believe he needs them. I encouraged him and thanked him for his adherence. Per staff, patient continues to be forgetful and can get upset if he is triggered - for example, when he received a certified letter in regards to his court hearing and became upset with SW. Patient has not been paranoid or aggressive. Patient slept 6.5 hours overnight. Appetite is good. VSS. No psychotropic PRNs required in the past 24 hours. Time of Service: 07:45 Start Time: 11:20 Stop Time: 11:40 Care >50% of this visit spent in counseling/coordination care. [facility]ations Exam Vitals Vital Signs Date Time Temp Pulse Resp B/P Pulse Ox O2 Delivery O2 Flow Rate FiO2 06/21/16 08:45 98.2 88 18 120/65 95 Room Air Physical examination performed by the hospitalist. Height (Feet): 6 Height (Inches): 1.00 Mental Status Exam Muscle Strength/Tone: Normal Dressing: Casual Grooming: Fair Attitude: Tense Motor Activity: Normal Eye Contact: Good Speech: Normal Volume: Normal Rhythm: Mumbled Sensory: Alert Orientation: Disoriented to time, Disoriented to situation, Oriented to person Mood: Neutral Affect: Labile (Improved from admission) Rate of Thoughts: Appropriate Rate Thought Organization: Disorganized, Confused Associations: Illogical Abstract Reasoning: Poor abstract reasoning Thought Content: Other (out of context to conversation; no other abnormal thought content elicited) Perception/Psychotic: Perception Normal Attention Span/Concentration: Distractable Fund of Knowledge: Poor fund of knowledge Memory: Poor-recent Suicidal Ideation: Denies Homicidal Ideation: Denies Insight: Limited Judgment: Limited Impulse Control: Poor (though improved since admission) Laboratory Tests Test 06/21/16 08:21 White Blood Count 5.4T/MM3 Red Blood Count 4.63M/MM3 Hemoglobin 13.3GM/DL Hematocrit 40.5% Mean Corpuscular Volume 87.5UM3 Mean Corpuscular Hemoglobin 28.7UUG Mean Corpuscular Hemoglobin Concent 32.8GM/DL RDW Standard Deviation 44.0FL Platelet Count 205T/MM3 Mean Platelet Volume 9.5UM3 Immature Granulocyte % (Auto) 0.4% Neutrophils (%) (Auto) 62.5% Lymphocytes (%) (Auto) 26.3% Monocytes (%) (Auto) 5.9% Eosinophils (%) (Auto) 4.2% Basophils (%) (Auto) 0.7% Absolute Immature Granulocyte (auto 0.02T/MM3 Absolute Neutrophils (auto) 3.4T/MM3 Absolute Lymphocytes (auto) 1.4T/MM3 Absolute Monocytes (auto) 0.3T/MM3 Absolute Eosinophils (auto) 0.2T/MM3 Absolute Basophils (auto) 0.0T/MM3 Assessment and Plan (1) Schizophrenia Assessment: by history 06/17/16: Repeat UA to r/o UTI; if WNL may need additional evening PRN due to interrupted sleep, overnight episodic agitation. 06/18/16: Hospitalist plans to start antibiotics for UTI. Continue current psychotropic medications for the time being; monitor symptoms as UTI resolves. 06/19/16: continue meds, abx started for UTI. Could titrate HS Seroquel more if needed. 06/20/16: Increase Seroquel to 300mg PO q HS to target suspiciousness. Monitor for daytime sedation and orthostasis. 06/21/16: Continue current care; monitor response to medication changes. Patient is continuing to take Ciprofloxacin for UTI. (2) Major neurocognitive disorder Assessment: moderate, with behavioral disturbance, vascular etiology probable (3) Urinary incontinence (4) BPH (benign prostatic hypertrophy) (5) CKD (chronic kidney disease), stage III (6) Normocytic anemia (7) HTN (hypertension) BRYANT MATHEW MD Jun 21, 2016 15:09
--- NOTE | 2016-06-21 18:08 | NUR ---
MATERIALS ENGINEER [facility] received phone call from staff member at [facility]. She said pt. had been approved for the HCBS-FE waiver. She was advised about the upcoming hearing to determine Guardianship. She will call back after June 28. [facility] received phone call from Eduardo Murcia. He wanted to make sure this SW had talked with the staff person from [facility] and knew about services Marbin had qualified for. He is currently traveling and is difficult to reach by phone at times. His # is [phone].
--- NOTE | 2016-06-21 18:30 | NUR ---
Summary Pt was cooperative throughout the shift and complied with requests. Pt had no complaints of pain or discomfort and no behaviors this shift other than when he lost his ipod and began to blame everyone near him. The ipod was later found under his pillow and returned to the inside sales director. Pt had no PRN medications this shift. Pt came out to the dining room for all meals. Pt is currently in his room resting.
[2016-06-21] MEDS: TAMSULOSIN 0.4 MG CAPSULE PO SCH (19:59)
[2016-06-21] MEDS: QUETIAPINE 200 MG TABLET PO SCH (20:00)
[2016-06-21] MEDS: LORAZEPAM 1 MG TABLET PO SCH (20:01)
[2016-06-21] MEDS: LINEZOLID 600 MG TABLET PO SCH (20:03)
[2016-06-21 21:14] VITALS: BP 138/73; PULSE 80; RESP 18; TEMP 97.6; O2SAT 96
--- NOTE | 2016-06-21 21:47 | NUR ---
SUMMARY PATIENT HAS BEEN PLEASANT AND COOPERATIVE WITH STAFF. HE TOOK ALL HIS EVENING MEDICATIONS WHOLE. NO AGGRESSIVE BEHAVIORS NOTED. HE HAS BEEN IN THE DAYROOM SINCE BEGINNING OF SHIFT AND REFUSED TO GO TO BED UP UNTIL NOW. NO PRN MEDICATION GIVEN. NO HALLUCINATIONS NOTED. WILL CONTINUE TO MONITOR.
--- NOTE | 2016-06-21 23:22 | NUR ---
Chart Check 24 hour chart check completed
--- NOTE | 2016-06-22 07:17 | NUR ---
Summary/ Sleep Assumed care of patient at 2300. Patient was pleasant and cooperative with assessment and cares. Patient had gone to sleep at 2230 and woke at 0115, patient slept 2.75 hours before waking up and going to the dayroom. Patient sat out in the dayroom watching tv most of the shift, before transitioning back to bed at 0500. Patient was asleep by 0515. While patient was out in the dayroom no aggression or agitation was observed. Patient appeared tired and nodding off at times, it appeared like patient didn't want to transition to bed as if he was afraid he would miss out on an activity. No prns given. Patient is currently in bed resting.
[2016-06-22] MEDS: QUETIAPINE 100 MG TABLET PO SCH ×2 (08:41→12:04)
[2016-06-22] MEDS: LINEZOLID 600 MG TABLET PO SCH ×2 (08:41→20:42)
[2016-06-22] MEDS: LISINOPRIL/HCTZ 10mg/12.5mg TABLET PO SCH (08:41)
--- NOTE | 2016-06-22 09:00 | NUR ---
SLEEP 6.0 HOURS Pt went to bed at 2200 last night and awoke at 0830 this morning. Pt slept a total of 6.0 hours as recorded on the 15 minute observation forms.
[2016-06-22 09:45] VITALS: BP 119/65; PULSE 71; RESP 18; TEMP 98.2; O2SAT 96
--- NOTE | 2016-06-22 13:18 | NUR ---
Status Pt was cooperative with assessment and medications, pt was resistive to having one staff take morning vitals but allowed someone else to do it. Pt has had no behaviors so far this shift and no PRN medications. Pt has spent a majority of the shift so far in the day room watching the wildlife outside. Pt eats well and is able to make his needs known. pt is currently in the day room watching the geese outside.
--- NOTE | 2016-06-22 14:14 | GENPN ---
[facility] Subjective Date DATE: 06/22/16 TIME: 08:43 Subjective/Severity of Illness Medications Current Medications Medications (Trade) Dose Ordered Sig/Tiff Start Time Stop Time Status Last Admin Dose Admin HCTZ/Lisinopril (Prinzide .5) 1 tab DAILY 06/16/16 09:00 06/21/16 08:36 1 TAB Lorazepam (Ativan) 1 mg HS 06/15/16 21:00 06/21/16 20:01 1 MG Quetiapine Fumarate (Seroquel) 100 mg 08,13 06/16/16 08:00 06/21/16 12:31 100 MG Quetiapine Fumarate (Seroquel) 200 mg HS 06/15/16 21:00 06/20/16 06:56 DC 06/19/16 19:44 200 MG Tamsulosin HCl (FLOMAX 0.4 mg) 0.4 mg HS 06/15/16 21:00 06/21/16 19:59 0.4 MG Miscellaneous Medication (May use PRN orders) 1 PRN PRN 06/15/16 15:30 Haloperidol (Haldol) 0.5 mg Q6H PRN 06/15/16 15:30 Lorazepam (Ativan) 0.5 mg Q6H PRN 06/15/16 15:30 Lorazepam (Ativan) 0.5 mg Q6H PRN 06/15/16 15:30 Haloperidol Lactate (Haldol 5 Mg/ml Inj) 0.5 mg Q6H PRN 06/15/16 15:30 Ciprofloxacin (Cipro) 500 mg Q12HR 06/18/16 21:00 06/20/16 16:22 DC 06/20/16 09:11 500 MG Quetiapine Fumarate (Seroquel) 300 mg HS 06/20/16 21:00 06/21/16 20:00 300 MG Amoxicillin (Amoxil) 875 mg Q12HR 06/20/16 21:00 06/21/16 15:03 DC 06/21/16 08:36 875 MG Linezolid (Zyvox) 600 mg Q12HR 06/21/16 21:00 06/28/16 09:01 06/21/16 20:03 600 MG Subjective Patient seen and chart reviewed. Case discussed with treatment team. Patient is sitting in dayroom with male peer after breakfast. 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 Patient denies SI, HI, AVH, or adverse side effects related to medications. Per staff, patient continues to be forgetful and can get upset if he is triggered - for example, when he could not find his headphones yesterday. Patient slept only 2.75 hours overnight and was awake for several hours before going back to bed at 0500. Staff reported he seemed anxious to miss out on an activity if he were to go to bed. Appetite is good. VSS. No psychotropic PRNs required in the past 24 hours. Time of Service: 07:45 Start Time: 10:20 Stop Time: 10:40 Care >50% of this visit spent in counseling/coordination care. Generations Exam Vitals Vital Signs Date Time Temp Pulse Resp B/P Pulse Ox O2 Delivery O2 Flow Rate FiO2 06/21/16 21:14 97.6 80 18 138/73 96 Room Air Physical examination performed by the hospitalist. Height (Feet): 6 Height (Inches): 1.00 Mental Status Exam Muscle Strength/Tone: Normal Dressing: Casual Grooming: Fair Attitude: Cooperative Motor Activity: Normal Eye Contact: Good Speech: Normal Volume: Normal Rhythm: Mumbled Sensory: Alert Orientation: Disoriented to time, Oriented to person Mood: Neutral Affect: Labile (improving ) Rate of Thoughts: Appropriate Rate Thought Organization: Confused (at times) Associations: Illogical (at times) Abstract Reasoning: Poor abstract reasoning Thought Content: Normal (patient protective over belongings - believe related to homelessness rather than being paranoid) Perception/Psychotic: Perception Normal Attention Span/Concentration: Distractable Language: Naming Intact Fund of Knowledge: Other (Decreased) Memory: Poor-recent Suicidal Ideation: Denies Homicidal Ideation: Denies Insight: Limited Judgment: Limited Impulse Control: Fair (improving) Assessment and Plan (1) Schizophrenia Assessment: by history 06/17/16: Repeat UA to r/o UTI; if WNL may need additional evening PRN due to interrupted sleep, overnight episodic agitation. 06/18/16: Hospitalist plans to start antibiotics for UTI. Continue current psychotropic medications for the time being; monitor symptoms as UTI resolves. 06/19/16: continue meds, abx started for UTI. Could titrate HS Seroquel more if needed. 06/20/16: Increase Seroquel to 300mg PO q HS to target suspiciousness. Monitor for daytime sedation and orthostasis. 06/21/16: Continue current care; monitor response to medication changes. Patient is continuing to take Ciprofloxacin for UTI. 06/22/16: Continue current care; may need to address insomnia but patient is doing well overall otherwise. (2) Major neurocognitive disorder Assessment: moderate, with behavioral disturbance, vascular etiology probable (3) Urinary incontinence (4) BPH (benign prostatic hypertrophy) (5) CKD (chronic kidney disease), stage III (6) Normocytic anemia (7) HTN (hypertension) BRYANT MATHEW MD Jun 22, 2016 08:43
--- NOTE | 2016-06-22 14:33 | NUR ---
INVENTORY CONTROL ANALYST--FACILITY CONTACT LSCSW spoke with Mariza Ngo of [facility]. She will send a community representative out to assess patient for possible placement in their AL with memory care support.
[2016-06-22 16:21] VITALS: BP 124/65; PULSE 73; RESP 16; TEMP 98.2; O2SAT 96
--- NOTE | 2016-06-22 18:38 | NUR ---
Summary Pt was cooperative throughout the shift and complied with requests. Pt had no complaints of pain or discomfort and no behaviors this shift. Pt had no PRN medications this shift. Pt came out to the dining room for all meals. Pt is currently in his room resting.
[2016-06-22 19:42] VITALS: BP 117/68; PULSE 72; RESP 16; TEMP 98.1; O2SAT 94
[2016-06-22] MEDS: LORAZEPAM 1 MG TABLET PO SCH (20:41)
[2016-06-22] MEDS: TAMSULOSIN 0.4 MG CAPSULE PO SCH (20:41)
[2016-06-22] MEDS: QUETIAPINE 200 MG TABLET PO SCH (20:42)
[2016-06-22 23:18] VITALS: PULSE 72; RESP 16
--- NOTE | 2016-06-22 23:48 | NUR ---
Pt status Pt was sitting in his room at beginning of shift. Pt alert to person and place. Up ad sherine. Pt is pleasant and cooperative with assessment. Joking and smiling with staff. No suspiciousness noted this shift. Pt moved out in to day room to watch tv after assessment completed. Compliant with all HS meds. Has not displayed any verbal or physical aggression this shift. Later in evening, pt was seen falling asleep in recliner. At 2200, asked pt if he was ready to lay down for the night. Pt stated he was. Pt got himself ready for bed and laid down. No PRNs given this shift. Currently sleeping. Bed rails up x 2 and alarm on. Will continue to monitor
--- NOTE | 2016-06-23 01:08 | NUR ---
Bed time Pt was starting to fall asleep in recliner in day room at 2214. Pt then got up to go to his room to get ready for bed at 2229. Pt was asleep by 2244 with no sleep during day hours. Currently still sleeping. Will continue to monitor
--- NOTE | 2016-06-23 01:10 | NUR ---
Chart Check 24 hour chart check completed
--- NOTE | 2016-06-23 06:03 | NUR ---
Summary Pt slept from 2245 to 0315, had decaf coffee and a snack and fell back to sleep in recliner at 0430 for 45 minutes. Was awake again at 0515 for 30 minutes and fell back to sleep off and on in recliner. Pt alert to person at this time. Up ad sherine. Pt has not displayed any verbal or physical aggression this shift. No behaviors. Pt has not exhibited any paranoid delusions this shift. No PRNs given. Compliant with all meds. Pt was incontinent, which is the reason he woke at 0315. Bed linens changed and pt was given clean clothes to change in to. Currently asleep in day room. Will continue to monitor
--- NOTE | 2016-06-23 08:00 | NUR ---
Pt Status Pt in dining area and ate breakfast well. Refused a.m. medications. Explained each med to patient but states "what do I need those for". Explained to patient that would re-visit with patient regarding meds.
[2016-06-23] MEDS: LINEZOLID 600 MG TABLET PO SCH ×3 (08:13→20:08)
[2016-06-23] MEDS: LISINOPRIL/HCTZ 10mg/12.5mg TABLET PO SCH ×2 (08:13→09:00)
[2016-06-23] MEDS: QUETIAPINE 100 MG TABLET PO SCH ×3 (08:13→13:30)
[2016-06-23 08:25] VITALS: BP 139/76; PULSE 68; RESP 18; TEMP 98.2; O2SAT 97
--- NOTE | 2016-06-23 09:00 | NUR ---
Medication Compliance and Sleep Time Pt awake since 629. Pt did take a.m.medications from second nurse who visited with him about his medications. Continues to question staff, tends to isolate in room, sits in chair.
--- NOTE | 2016-06-23 11:47 | NUR ---
TABLEAU REPORT DEVELOPER--AM GROUP Pt. actively participated in psychoeducational group facilitated by [facility]. Started off group by talking about expectations of the unit and encouraged all patients to engage in some of the activities involved. Talked about different interests and hobbies. Pt. could not identify any hobbies. One patient stated that she worked too hard and did not have time for hobbies or collections. Talked with patients about importance of taking time for themselves, now that they have time. Reminded them that today can be as special as they make it. Talked about favorite foods from their childhood. Pt. had difficulty spontaneously thinking of an answer but would agree to what others suggested. Finished up group by listening to [employer] hymns. Pt. remained calm and engaged for entire group. He was observed smiling frequently and mouthing the words to some of the hymns that were played. After group, pt. came into SW office and commented on how much he enjoyed the activity. He sat for 10 minutes and continued to listen and sing along with [employer] songs.
[2016-06-23 16:23] VITALS: BP 131/79; PULSE 70; RESP 16; TEMP 98.6; O2SAT 96
--- NOTE | 2016-06-23 18:08 | NUR ---
Shift Summary and Sleep Time No sleep today since awake around 0630. Pt has not been compliant with medications as requires much explanation and delays in taking doses as ordered. Has taken meds eventually but not readily. Thoughts are disorganized and speech rambling from subject to subject.
[2016-06-23] MEDS: LORAZEPAM 1 MG TABLET PO SCH (20:08)
[2016-06-23] MEDS: QUETIAPINE 200 MG TABLET PO SCH (20:09)
[2016-06-23] MEDS: TAMSULOSIN 0.4 MG CAPSULE PO SCH (20:09)
[2016-06-23 20:39] VITALS: BP 121/64; PULSE 68; RESP 16; TEMP 98.2; O2SAT 93
--- NOTE | 2016-06-23 22:04 | GENPN ---
[facility] Subjective Date DATE: 06/23/16 TIME: 22:00 Subjective/Severity of Illness Medications Current Medications Medications (Trade) Dose Ordered Sig/Tiff Start Time Stop Time Status Last Admin Dose Admin HCTZ/Lisinopril (Prinzide .5) 1 tab DAILY 06/16/16 09:00 06/23/16 09:00 1 TAB Lorazepam (Ativan) 1 mg HS 06/15/16 21:00 06/23/16 20:08 1 MG Quetiapine Fumarate (Seroquel) 100 mg 08,13 06/16/16 08:00 06/23/16 13:30 100 MG Quetiapine Fumarate (Seroquel) 200 mg HS 06/15/16 21:00 06/20/16 06:56 DC 06/19/16 19:44 200 MG Tamsulosin HCl (FLOMAX 0.4 mg) 0.4 mg HS 06/15/16 21:00 06/23/16 20:09 0.4 MG Miscellaneous Medication (May use PRN orders) 1 PRN PRN 06/15/16 15:30 Haloperidol (Haldol) 0.5 mg Q6H PRN 06/15/16 15:30 Lorazepam (Ativan) 0.5 mg Q6H PRN 06/15/16 15:30 Lorazepam (Ativan) 0.5 mg Q6H PRN 06/15/16 15:30 Haloperidol Lactate (Haldol 5 Mg/ml Inj) 0.5 mg Q6H PRN 06/15/16 15:30 Ciprofloxacin (Cipro) 500 mg Q12HR 06/18/16 21:00 06/20/16 16:22 DC 06/20/16 09:11 500 MG Quetiapine Fumarate (Seroquel) 300 mg HS 06/20/16 21:00 06/23/16 20:09 300 MG Amoxicillin (Amoxil) 875 mg Q12HR 06/20/16 21:00 06/21/16 15:03 DC 06/21/16 08:36 875 MG Linezolid (Zyvox) 600 mg Q12HR 06/21/16 21:00 06/28/16 09:01 06/23/16 20:08 600 MG Subjective Patient seen and chart reviewed. Case discussed with treatment team. Patient is sitting in dayroom with male peer. He is pleasant through interview, reports his mood is good and denies any complaints. Patient denies SI, HI, AVH, or adverse side effects related to medications. Per staff, patient asked for multiple explanations in regards to medications today but eventually did take them. He is continuing antibiotic treatment for UTI as well. Patient once again woke in the middle of the night for a time before going back to bed but did not have any behavioral issues during that time. Staff reported he seemed anxious to miss out on an activity if he were to go to bed. Appetite is good. VSS. No psychotropic PRNs required in the past 24 hours. Time of Service: 07:45 Start Time: 19:20 Stop Time: 19:40 Care >50% of this visit spent in counseling/coordination care. Generations Exam Vitals Vital Signs Date Time Temp Pulse Resp B/P Pulse Ox O2 Delivery O2 Flow Rate FiO2 06/23/16 20:39 98.2 68 16 121/64 93 Room Air Physical examination performed by the hospitalist. Height (Feet): 6 Height (Inches): 1.00 Mental Status Exam Muscle Strength/Tone: Normal Dressing: Casual Grooming: Fair Attitude: Cooperative Motor Activity: Normal Eye Contact: Good Speech: Normal Volume: Normal Rhythm: Appropriate Rhythm Sensory: Alert Orientation: Disoriented to time, Disoriented to situation, Oriented to person Mood: Neutral Affect: Congruent Rate of Thoughts: Delayed Thought Organization: Confused Associations: Illogical Abstract Reasoning: Poor abstract reasoning Thought Content: Paranoia (improving) Perception/Psychotic: Perception Normal Attention Span/Concentration: Distractable Language: Naming Intact Fund of Knowledge: Other (decreased) Memory: Poor-recent Suicidal Ideation: Denies Homicidal Ideation: Denies Insight: Limited Judgment: Limited Impulse Control: Fair Assessment and Plan (1) Schizophrenia Assessment: by history 06/17/16: Repeat UA to r/o UTI; if WNL may need additional evening PRN due to interrupted sleep, overnight episodic agitation. 06/18/16: Hospitalist plans to start antibiotics for UTI. Continue current psychotropic medications for the time being; monitor symptoms as UTI resolves. 06/19/16: continue meds, abx started for UTI. Could titrate HS Seroquel more if needed. 06/20/16: Increase Seroquel to 300mg PO q HS to target suspiciousness. Monitor for daytime sedation and orthostasis. 06/21/16: Continue current care; monitor response to medication changes. Patient is continuing to take Ciprofloxacin for UTI. 06/22/16: Continue current care; may need to address insomnia but patient is doing well overall otherwise. 06/23/16: Continue current care; [facility] planning to evaluate patient for placement and he is in agreement with this. Will attempt to repeat SLUMS if he will cooperate. (2) Major neurocognitive disorder Assessment: moderate, with behavioral disturbance, vascular etiology probable (3) Urinary incontinence (4) BPH (benign prostatic hypertrophy) (5) CKD (chronic kidney disease), stage III (6) Normocytic anemia (7) HTN (hypertension) BRYANT MATHEW MD Jun 23, 2016 22:04
[2016-06-24 00:15] VITALS: RESP 16
--- NOTE | 2016-06-24 02:07 | NUR ---
Bed time Pt went to bed at 2130 and was asleep at 2145. No sleep times during day hours. Currently sleeping. Will continue to monitor
--- NOTE | 2016-06-24 02:09 | NUR ---
Chart Check 24 hour chart check completed
--- NOTE | 2016-06-24 07:20 | NUR ---
Summary Pt has slept from 2144 to 299, was up in day room until 444, went back to sleep at 0500 and is still currently sleeping. Pt alert to person. Up ad sherine. Pt has not displayed any verbal or physical aggression this shift. No PRNs given. Pt has been pleasant and cooperative, smiling and joking with staff. Compliant with all meds. Continent this shift. Bed rails up x 2 and alarm on. Will continue to monitor
[2016-06-24] MEDS: LINEZOLID 600 MG TABLET PO SCH ×2 (08:42→20:45)
[2016-06-24] MEDS: LISINOPRIL/HCTZ 10mg/12.5mg TABLET PO SCH (08:43)
[2016-06-24] MEDS: QUETIAPINE 100 MG TABLET PO SCH ×2 (08:43→13:00)
[2016-06-24 08:47] VITALS: BP 138/79; PULSE 75; RESP 18; TEMP 98.3; O2SAT 94
--- NOTE | 2016-06-24 10:30 | NUR ---
VIDEO GAME MAKER--INDIVIDUAL Pt. stopped by [facility] office to visit. Pt. is calm with pleasant mood. He had sought out SW earlier for help getting some clean clothes because he had urinated on himself. This SW was able to get him some sweat pants to put on while his clothes were being washed and dried. Pt.'s speech is soft and mumbled. He does not make a lot of sense when he talks and needs explanations repeated multiple times to help him understand content of conversation. He asked about going outside to pick up attendant some trash around the pond. This SW suggested he talk with PD Dk, about going outside in courtyard after lunch. He struggled to understand the directions and would say, "I don't know what you are saying." This SW finally directed pt. to go to day room to wait for lunch and offered to talk with PD about taking him on a walk.
--- NOTE | 2016-06-24 12:44 | PNPDOC ---
MADHAVI TOLLIVER EMERGENCY MANAGEMENT PROGRAM SPECIALIST 06/24/16 1237: Subjective Date DATE: 06/24/16 TIME: 12:34 Subjective Yonny was in his room, and he invited me and to sit down. He stated that he likes it here. He showed me a couple of the books he's reading - one of them was book of jokes. I asked him about it, but he replied that it was not a joke book. At times he mumbles and is very difficult to understand. He denies any chest pain or shortness of breath, abdominal pain, or GI complaints. He refused lab this morning, and states he will refuse it again tomorrow. I told him I would like to recheck his kidney tests, but he states that his kidneys are working fine. During exam he asked what I was planning to write about him, and I verbalized my exam findings. Objective Vital Signs Vital signs Vital Signs Date Time Temp Pulse Resp B/P Pulse Ox O2 Delivery O2 Flow Rate FiO2 06/24/16 08:47 98.3 75 18 138/79 94 Room Air Height (Feet): 6 Height (Inches): 1.00 Weight (Kilograms): 86.300 General General Appearance: Alert, Well Nourished, Well Developed, No Acute Distress Comments Wears 2 caps and his coat. Eyes (Brief) Eyes: FOUND: PERRL, NOT FOUND: scleral icterus ENMT (Brief) ENMT: FOUND: mucosa moist, NOT FOUND: pharnyx erythema Respiratory (Brief) Respiratory: FOUND: clear all bolanos, equal bilaterally Cardiovascular (Brief) Cardiac: FOUND: regular rate, regular rhythm Abdomen (Brief) Abdominal: FOUND: BS normo active x4, soft, NOT FOUND: distended, tender Extremities (Brief) Extremity : Side: Bilateral Extremity Finding: NOT FOUND: edema Musculoskeletal (Brief) Musculoskeletal: NOT FOUND: deformity Integumentary (Brief) Integumentary: FOUND: dry, pink, warm Psychiatric (Brief) Psychiatric: FOUND: alert, attentive, oriented Assessment & Plan Problems: (1) Schizophrenia Status: Chronic (2) CKD (chronic kidney disease), stage III Status: Chronic (3) Urinary incontinence Status: Chronic (4) BPH (benign prostatic hypertrophy) Status: Chronic (5) Normocytic anemia Status: Chronic (6) Major neurocognitive disorder (7) UTI (urinary tract infection) Status: Resolved Assessment & Plan: Enterococcus, sens. Zyvox, Vanco (8) Urine retention (9) HTN (hypertension) Status: Chronic Plan/Intensity of Service Continue Zyvox for enterococcus UTI. Would prefer to recheck BMP prior to discharge. It's possible that he will be discharged in the next day or 2. Will order BMP for tomorrow morning, knowing that the patient may refuse. Psychiatric progress notes were reviewed. Discussed with Dr. Clark. Code Status Full Code, unverified Hospital Course Summary Disclaimer The hospital course summary below is not to be considered part of the above Progress Note. Hospital Course Summary 06/15/16 Agree with admission to [facility]. CKD stage III - Baseline Cr 2-2.5. Cont. Flomax. Labs last checked on 06/13 - cr 2.1. HTN - Lisinopril/HCTZ 12/09.5 - may consider increasing back up to 20/25 mg. Norvasc causes pedal edema but could certainly try low-dose if BP increases. Schizophrenia/dementia - per attending. Medically stable. 06/18/[address] Clark regarding your analysis results and increased agitation. She was recently treated for urine culture positive for Morganella Morganii and Enterococ Faecalis. He completed 7 days of Cipro coverage. Will place patient back on BID Cipro and wait for urine culture results Will recheck BMP tomorrow to follow renal function and electrolytes. Continue to monitor blood pressure, continue on Prinzide 12/09.5 Continued psychiatric management as per Dr. Clark's recommendation 06/20/16- Mood/cognition remains at baseline. Will need guardianship, placement. Chart reviewed- he does have VSE on urine cx- Cipro will not cover. Do not want to use Zyvox- multiple severe interactions with psych meds. Try to avoid Vanco given IV dosing. Will try some Amoxil- recommend recheck UA after 7 days of treatment. Will repeat CBC in AM. Continues supportive care. Await placement. 06/21/16 Enterococcus UTI - only sensitive to Zyvox and Vanco. Amoxil was started on 06/20 - monitor closely and recheck UA around 06/27/16. Checked interactions between Zyvox, seroquel and haldol - no interactions noted. Will start Zyvox 600 mg BID x 7 days. CBC done this am - WBC normal; hgb 13.3. Will check BMP on blood in lab (if able ) to f/u on CKD and recent Cipro use. Psych notes reviewed - Seroquel HS dose increased to 300 mg. 06/24/16 Continue Zyvox for enterococcus UTI. Would prefer to recheck BMP prior to discharge. It's possible that he will be discharged in the next day or 2. Will order BMP for tomorrow morning, knowing that the patient may refuse. Psychiatric progress notes were reviewed. Discussed with Dr. Clark. SHREYA ORTIZ MD 06/24/16 1903: MADHAVI TOLLIVER EMERGENCY MANAGEMENT PROGRAM SPECIALIST Jun 24, 2016 12:37 SHREYA ORTIZ MD Jun 24, 2016 19:03
[2016-06-24 16:00] VITALS: BP 141/90; PULSE 65; RESP 16; TEMP 98.2; O2SAT 94
--- NOTE | 2016-06-24 17:42 | NUR ---
summary pt alert and oriented to person and place. pleasant and cooperative most of shift. pt was compliant with am meds but did refuse 1300 seroquel after several attempts to give. pt ate well for all meals. no prn's given this shift. pt woke at at 0730 slept approx 6 hrs. pt speech makes no sense at times. speech is quiet and hard to understand at times. hard to follow his train of thought unless he is talking about the geese.
[2016-06-24 20:11] VITALS: BP 140/73; PULSE 66; RESP 16; TEMP 98.7; O2SAT 95
[2016-06-24] MEDS: QUETIAPINE 200 MG TABLET PO SCH (20:45)
[2016-06-24] MEDS: LORAZEPAM 1 MG TABLET PO SCH (20:45)
[2016-06-24] MEDS: TAMSULOSIN 0.4 MG CAPSULE PO SCH (20:45)
[2016-06-24 22:35] VITALS: PULSE 66; RESP 16
--- NOTE | 2016-06-25 01:14 | NUR ---
Chart Check 24 hour chart check completed
--- NOTE | 2016-06-25 01:35 | NUR ---
Mid shift status Pt was sitting in day room at beginning of shift. Pt alert to person. Up ad sherine. Pleasant and cooperative. Smiling and visiting with staff and other patients in day room. Compliant with HS meds. Pt has been continent. Pt has not displayed any verbal or physical aggression. Pt has exhibited no paranoid delusions this shift. No behaviors noted. No PRNs given. Pt speech mumbled and difficult to understand at times. Pt was asleep at 2215. Currently sleeping. Bed rails up x 2 and alarm on. Will continue to monitor
--- NOTE | 2016-06-25 01:42 | NUR ---
Bed time Pt went to bed at 2200 and was asleep at 2215. No sleep times during day. Currently sleeping. Will continue to monitor
--- NOTE | 2016-06-25 05:41 | NUR ---
Summary Pt has been sleeping since 2214. Pt alert to person. Up ad sherine. Pleasant and cooperative. Smiled and visited with staff and other patients. Compliant with HS meds. Pt has not displayed any verbal or physical aggression this shift. No behaviors noted. No PRNs given. Pt has mumbled speech at times, making it difficult to understand. Currently sleeping. Bed rails up x 2 and alarm on. Will continue to monitor
[2016-06-25] MEDS: LISINOPRIL/HCTZ 10mg/12.5mg TABLET PO SCH (07:48)
[2016-06-25] MEDS: LINEZOLID 600 MG TABLET PO SCH ×2 (07:48→20:35)
[2016-06-25] MEDS: QUETIAPINE 100 MG TABLET PO SCH ×2 (07:49→14:21)
[2016-06-25 08:26] VITALS: BP 116/69; PULSE 80; RESP 16; TEMP 98; O2SAT 95
--- NOTE | 2016-06-25 09:00 | NUR ---
SLEEP 8.5 Hours Pt went to bed at 2200 last night and awoke at 0700. Pt slept a total of 8.50 hours as documented on the 15 minute observation forms.
--- NOTE | 2016-06-25 11:45 | GENPN ---
[facility] Subjective Date DATE: 06/24/16 TIME: 08:32 Subjective/Severity of Illness Medications Current Medications Medications (Trade) Dose Ordered Sig/Tiff Start Time Stop Time Status Last Admin Dose Admin HCTZ/Lisinopril (Prinzide .5) 1 tab DAILY 06/16/16 09:00 06/23/16 09:00 1 TAB Lorazepam (Ativan) 1 mg HS 06/15/16 21:00 06/23/16 20:08 1 MG Quetiapine Fumarate (Seroquel) 100 mg 08,13 06/16/16 08:00 06/23/16 13:30 100 MG Quetiapine Fumarate (Seroquel) 200 mg HS 06/15/16 21:00 06/20/16 06:56 DC 06/19/16 19:44 200 MG Tamsulosin HCl (FLOMAX 0.4 mg) 0.4 mg HS 06/15/16 21:00 06/23/16 20:09 0.4 MG Miscellaneous Medication (May use PRN orders) 1 PRN PRN 06/15/16 15:30 Haloperidol (Haldol) 0.5 mg Q6H PRN 06/15/16 15:30 Lorazepam (Ativan) 0.5 mg Q6H PRN 06/15/16 15:30 Lorazepam (Ativan) 0.5 mg Q6H PRN 06/15/16 15:30 Haloperidol Lactate (Haldol 5 Mg/ml Inj) 0.5 mg Q6H PRN 06/15/16 15:30 Ciprofloxacin (Cipro) 500 mg Q12HR 06/18/16 21:00 06/20/16 16:22 DC 06/20/16 09:11 500 MG Quetiapine Fumarate (Seroquel) 300 mg HS 06/20/16 21:00 06/23/16 20:09 300 MG Amoxicillin (Amoxil) 875 mg Q12HR 06/20/16 21:00 06/21/16 15:03 DC 06/21/16 08:36 875 MG Linezolid (Zyvox) 600 mg Q12HR 06/21/16 21:00 06/28/16 09:01 06/23/16 20:08 600 MG Subjective Patient seen and chart reviewed. Case discussed with treatment team. Patient is sitting in dayroom with male peer. He is pleasant through interview, reports his mood is good and denies any complaints. He does frequently ask what we are talking about. Patient denies SI, HI, AVH, or adverse side effects related to medications. Per staff, patient has not had nay significant behavioral problems on the unit. Patient once again woke in the middle of the night for a time before going back to bed but did not have any behavioral issues during that time. Staff reported he seemed anxious to miss out on an activity if he were to go to bed. Appetite is good. VSS. No psychotropic PRNs required in the past 24 hours. Time of Service: 07:45 Start Time: 11:00 Stop Time: 11:20 Care >50% of this visit spent in counseling/coordination care. [facility] Exam Vitals Vital Signs Date Time Temp Pulse Resp B/P Pulse Ox O2 Delivery O2 Flow Rate FiO2 06/24/16 00:15 16 06/23/16 20:39 98.2 68 121/64 93 Room Air Physical examination performed by the hospitalist. Height (Feet): 6 Height (Inches): 1.00 Mental Status Exam Muscle Strength/Tone: Normal Dressing: Casual Grooming: Fair Attitude: Cooperative Motor Activity: Normal Eye Contact: Good Speech: Normal Volume: Normal Rhythm: Mumbled Sensory: Alert Orientation: Disoriented to time, Oriented to person Mood: Euthymic Affect: Congruent, Stable Rate of Thoughts: Delayed Thought Organization: Confused Associations: Illogical Abstract Reasoning: Poor abstract reasoning Thought Content: Normal Perception/Psychotic: Perception Normal Attention Span/Concentration: Distractable Language: Naming Impaired Fund of Knowledge: Poor fund of knowledge Memory: Poor-immediate, Poor-recent Suicidal Ideation: Denies Homicidal Ideation: Denies Insight: Limited Judgment: Limited Impulse Control: Good Assessment and Plan (1) Schizophrenia Assessment: by history 06/17/16: Repeat UA to r/o UTI; if WNL may need additional evening PRN due to interrupted sleep, overnight episodic agitation. 06/18/16: Hospitalist plans to start antibiotics for UTI. Continue current psychotropic medications for the time being; monitor symptoms as UTI resolves. 06/19/16: continue meds, abx started for UTI. Could titrate HS Seroquel more if needed. 06/20/16: Increase Seroquel to 300mg PO q HS to target suspiciousness. Monitor for daytime sedation and orthostasis. 06/21/16: Continue current care; monitor response to medication changes. Patient is continuing to take Ciprofloxacin for UTI. 06/22/16: Continue current care; may need to address insomnia but patient is doing well overall otherwise. 06/23/16: Continue current care; [facility] planning to evaluate patient for placement and he is in agreement with this. Will attempt to repeat SLUMS if he will cooperate. 06/24/16: Continue current care. (2) Major neurocognitive disorder Assessment: moderate, with behavioral disturbance, vascular etiology probable (3) Urinary incontinence (4) BPH (benign prostatic hypertrophy) (5) CKD (chronic kidney disease), stage III (6) Normocytic anemia (7) HTN (hypertension) BRYANT MATHEW MD Jun 24, 2016 08:32
--- NOTE | 2016-06-25 16:32 | NUR ---
ABA TUTOR--FACILITY VISIT Stacie, from [facility], came over to assess pt. for possible placement in [facility]. She will talk with their staff and they will get back with this SW on Tuesday.
[2016-06-25 18:11] VITALS: BP 131/76; PULSE 66; RESP 16; TEMP 98.2; O2SAT 94
--- NOTE | 2016-06-25 18:29 | NUR ---
Summary Pt was cooperative with assessment cares and medications. Pt had no complaints of pain or discomfort and no behaviors this shift. Pt has had some issues with orientation today. He would come out of his room and not know why he was here ans stated " i will work for my dinner if i need to" Pt was redirected and staff sat and spoke with him for a short time to calm him. Pt had no PRN medications this shift. Pt came out to the dining room for all meals. Pt is currently in his room resting.
[2016-06-25 20:35] VITALS: PULSE 66; RESP 16
[2016-06-25] MEDS: LORAZEPAM 1 MG TABLET PO SCH (20:35)
[2016-06-25] MEDS: QUETIAPINE 200 MG TABLET PO SCH (20:35)
[2016-06-25] MEDS: TAMSULOSIN 0.4 MG CAPSULE PO SCH (20:35)
[2016-06-25 20:43] VITALS: BP 135/80; PULSE 74; RESP 16; TEMP 98.6
--- NOTE | 2016-06-25 22:30 | NUR ---
Status / Bedtime Pt seems more confused to STAFF PHYSICAL THERAPIST's who have cared for him in the past. Pt unable to complete sentences and sentences are gumbled up to where the sentence makes no sense. Pt took meds whole with grape juice. Pt assist x 1 with shower this evening and Pt cooperative. Pt complained of heartburn to STAFF PHYSICAL THERAPIST but when I went in to assess Pt 10 minutes later, Pt denied and focused on "my girlfriend, in here and taking my shit, my 7 dollars, you tell her to return it." Able to redirect, and Pt able to regulate self and in bed at 2230. Will continue to monitor. Call light in reach. Bed locked and low. Bed alarm on.
--- NOTE | 2016-06-26 01:09 | NUR ---
Chart Check 24 hour chart check completed
--- NOTE | 2016-06-26 06:30 | NUR ---
Summary Pt awoken by staff to use bathroom around 0200 and Pt at first agitated about being woken up but then happy that he hadn't peed the pad and had just gone in his brief. Pt then assisted in new brief and went back to bed. Pt has slept around 7 hours and still resting with eyes closed. Pt continues to have salad word sentences and trouble finding words for his sentence. Will continue to monitor. Pt took medications without difficulty.
--- NOTE | 2016-06-26 08:00 | NUR ---
pt sitting at table for breakfast, up and down several times, anxious behavior, unable to sit still at this time.
[2016-06-26] MEDS: QUETIAPINE 100 MG TABLET PO SCH ×2 (08:07→13:00)
[2016-06-26] MEDS: LISINOPRIL/HCTZ 10mg/12.5mg TABLET PO SCH (08:08)
[2016-06-26] MEDS: LINEZOLID 600 MG TABLET PO SCH ×2 (08:08→20:20)
[2016-06-26 08:15] VITALS: BP 136/78; PULSE 77; RESP 16; TEMP 98.2; O2SAT 92
--- NOTE | 2016-06-26 10:39 | NUR ---
pt sitting up in chair watching TV. dressed in heavy coat and two hats.
--- NOTE | 2016-06-26 15:45 | PNPDOC ---
Subjective Date DATE: 06/26/16 TIME: 15:39 Subjective Toney is seen today in follow up. He is up in day room watching TV. Alert, not conversive today. No acute concerns. Objective Vital Signs Vital signs Vital Signs Date Time Temp Pulse Resp B/P Pulse Ox O2 Delivery O2 Flow Rate FiO2 06/26/16 08:15 98.2 77 16 136/78 92 Room Air Height (Feet): 6 Height (Inches): 1.00 Weight (Kilograms): 86.300 General General Appearance: Alert, Cooperative, No Acute Distress Eyes (Brief) Eyes: FOUND: EOMI, PERRL Neck (Brief) Neck: FOUND: midline, NOT FOUND: JVD, nuchal rigidity, spasm Respiratory (Brief) Respiratory: FOUND: clear all bolanos, equal bilaterally, symmetrical, NOT FOUND : rales, wheezes Cardiovascular (Brief) Cardiac: FOUND: regular rate, regular rhythm Abdomen (Brief) Abdominal: FOUND: BS normo active x4, soft, NOT FOUND: distended, tender Extremities (Brief) Extremity : Extremity Finding: NOT FOUND: edema Psychiatric (Brief) Psychiatric: FOUND: alert Assessment & Plan Problems: (1) Schizophrenia Status: Chronic (2) CKD (chronic kidney disease), stage III Status: Chronic (3) Urinary incontinence Status: Chronic (4) BPH (benign prostatic hypertrophy) Status: Chronic (5) Normocytic anemia Status: Chronic (6) Major neurocognitive disorder (7) UTI (urinary tract infection) Status: Resolved Assessment & Plan: Enterococcus, sens. Zyvox, Vanco (8) Urine retention (9) HTN (hypertension) Status: Chronic Plan/Intensity of Service 06/26/16- Pt. to stop Zyvox on 06/28/16. Chronic incontinence. Placement pending- involuntary. BP fairly well controlled. Continue Lisinopril-HCTZ. Pt. has been refusing labs. Code Status Full Code, unverified Hospital Course Summary Disclaimer The hospital course summary below is not to be considered part of the above Progress Note. Hospital Course Summary 06/15/16 Agree with admission to [facility]. CKD stage III - Baseline Cr 2-2.5. Cont. Flomax. Labs last checked on 06/13 - cr 2.1. HTN - Lisinopril/HCTZ 10/12.5 - may consider increasing back up to 20/25 mg. Norvasc causes pedal edema but could certainly try low-dose if BP increases. Schizophrenia/dementia - per attending. Medically stable. 06/18/[address] Clark regarding your analysis results and increased agitation. She was recently treated for urine culture positive for Morganella Morganii and Enterococ Faecalis. He completed 7 days of Cipro coverage. Will place patient back on BID Cipro and wait for urine culture results Will recheck BMP tomorrow to follow renal function and electrolytes. Continue to monitor blood pressure, continue on Prinzide 12/09.5 Continued psychiatric management as per Dr. Clark's recommendation 06/20/16- Mood/cognition remains at baseline. Will need guardianship, placement. Chart reviewed- he does have VSE on urine cx- Cipro will not cover. Do not want to use Zyvox- multiple severe interactions with psych meds. Try to avoid Vanco given IV dosing. Will try some Amoxil- recommend recheck UA after 7 days of treatment. Will repeat CBC in AM. Continues supportive care. Await placement. 06/21/16 Enterococcus UTI - only sensitive to Zyvox and Vanco. Amoxil was started on 06/20 - monitor closely and recheck UA around 06/27/16. Checked interactions between Zyvox, seroquel and haldol - no interactions noted. Will start Zyvox 600 mg BID x 7 days. CBC done this am - WBC normal; hgb 13.3. Will check BMP on blood in lab (if able ) to f/u on CKD and recent Cipro use. Psych notes reviewed - Seroquel HS dose increased to 300 mg. 06/24/16 Continue Zyvox for enterococcus UTI. Would prefer to recheck BMP prior to discharge. It's possible that he will be discharged in the next day or 2. Will order BMP for tomorrow morning, knowing that the patient may refuse. Psychiatric progress notes were reviewed. Discussed with Dr. Clark. 06/26/16- Pt. to stop Zyvox on 06/28/16. Chronic incontinence. Placement pending- involuntary. BP fairly well controlled. Continue Lisinopril-HCTZ. Pt. has been refusing labs. HALEY MARLEY BAKERY ASSISTANT Jun 26, 2016 15:42
[2016-06-26 16:00] VITALS: BP 121/75; PULSE 83; RESP 16; TEMP 98.4; O2SAT 95
--- NOTE | 2016-06-26 17:15 | GENPN ---
[facility] Subjective Date DATE: 06/26/16 TIME: 10:29 Subjective/Severity of Illness Medications Current Medications Medications (Trade) Dose Ordered Sig/Tiff Start Time Stop Time Status Last Admin Dose Admin HCTZ/Lisinopril (Prinzide .5) 1 tab DAILY 06/16/16 09:00 06/26/16 08:08 1 TAB Lorazepam (Ativan) 1 mg HS 06/15/16 21:00 06/25/16 20:35 1 MG Quetiapine Fumarate (Seroquel) 100 mg 08,13 06/16/16 08:00 06/26/16 08:07 100 MG Quetiapine Fumarate (Seroquel) 200 mg HS 06/15/16 21:00 06/20/16 06:56 DC 06/19/16 19:44 200 MG Tamsulosin HCl (FLOMAX 0.4 mg) 0.4 mg HS 06/15/16 21:00 06/25/16 20:35 0.4 MG Miscellaneous Medication (May use PRN orders) 1 PRN PRN 06/15/16 15:30 Haloperidol (Haldol) 0.5 mg Q6H PRN 06/15/16 15:30 Lorazepam (Ativan) 0.5 mg Q6H PRN 06/15/16 15:30 Lorazepam (Ativan) 0.5 mg Q6H PRN 06/15/16 15:30 Haloperidol Lactate (Haldol 5 Mg/ml Inj) 0.5 mg Q6H PRN 06/15/16 15:30 Ciprofloxacin (Cipro) 500 mg Q12HR 06/18/16 21:00 06/20/16 16:22 DC 06/20/16 09:11 500 MG Quetiapine Fumarate (Seroquel) 300 mg HS 06/20/16 21:00 06/25/16 20:35 300 MG Amoxicillin (Amoxil) 875 mg Q12HR 06/20/16 21:00 06/21/16 15:03 DC 06/21/16 08:36 875 MG Linezolid (Zyvox) 600 mg Q12HR 06/21/16 21:00 06/28/16 09:01 06/26/16 08:08 600 MG Subjective Patient seen and chart reviewed. Case discussed with treatment team. Patient is sitting in dayroom with peers. He is pleasant through interview, reports his mood is good and denies any complaints. He later comes to visit at the nurses' station and is very pleasant. Patient denies SI, HI, AVH, or adverse side effects related to medications. Per staff, patient has not had nay significant behavioral problems on the unit. Patient slept 7.75 hours uninterrupted overnight. Appetite is good. VSS. No psychotropic PRNs required in the past 24 hours. Time of Service: 07:45 Start Time: 15:00 Stop Time: 15:20 Care >50% of this visit spent in counseling/coordination care. [facility] Exam Vitals Vital Signs Date Time Temp Pulse Resp B/P Pulse Ox O2 Delivery O2 Flow Rate FiO2 06/26/16 08:15 98.2 77 16 136/78 92 Room Air Physical examination performed by the hospitalist. Height (Feet): 6 Height (Inches): 1.00 Mental Status Exam Muscle Strength/Tone: Normal Dressing: Casual Grooming: Fair Attitude: Cooperative Motor Activity: Normal Eye Contact: Good Speech: Normal Volume: Normal Rhythm: Mumbled Sensory: Alert Orientation: Disoriented to time, Disoriented to place, Oriented to person Mood: Euthymic Affect: Stable Rate of Thoughts: Appropriate Rate Thought Organization: Confused Associations: Illogical Abstract Reasoning: Poor abstract reasoning Thought Content: Normal Perception/Psychotic: Perception Normal Attention Span/Concentration: Short Span Language: Naming Intact Fund of Knowledge: Poor fund of knowledge Memory: Poor-immediate, Poor-recent Suicidal Ideation: Denies Homicidal Ideation: Denies Insight: Impaired Judgment: Impaired Impulse Control: Fair Assessment and Plan (1) Schizophrenia Assessment: by history 06/17/16: Repeat UA to r/o UTI; if WNL may need additional evening PRN due to interrupted sleep, overnight episodic agitation. 06/18/16: Hospitalist plans to start antibiotics for UTI. Continue current psychotropic medications for the time being; monitor symptoms as UTI resolves. 06/19/16: continue meds, abx started for UTI. Could titrate HS Seroquel more if needed. 06/20/16: Increase Seroquel to 300mg PO q HS to target suspiciousness. Monitor for daytime sedation and orthostasis. 06/21/16: Continue current care; monitor response to medication changes. Patient is continuing to take Ciprofloxacin for UTI. 06/22/16: Continue current care; may need to address insomnia but patient is doing well overall otherwise. 06/23/16: Continue current care; [facility] planning to evaluate patient for placement and he is in agreement with this. Will attempt to repeat SLUMS if he will cooperate. 06/24/16: Continue current care. 06/26/16: Patient continues to be confused but pleasant and cooperative. Awaiting response from [facility]. Continue current care. (2) Major neurocognitive disorder Assessment: moderate, with behavioral disturbance, vascular etiology probable (3) Urinary incontinence (4) BPH (benign prostatic hypertrophy) (5) CKD (chronic kidney disease), stage III (6) Normocytic anemia (7) HTN (hypertension) BRYANT MATHEW MD Jun 26, 2016 10:29
[2016-06-26 18:45] LABS: BLOOD, URINE NEGATIVE (NEGATIVE); COLOR,URINE YELLOW (YELLOW); LEUKOCYTE ESTERASE ,URINE NEGATIVE (NEGATIVE); NITRITE,URINE NEGATIVE (NEGATIVE); UROBILINOGEN,URINE 0.2 EU/DL (NORMAL)
[2016-06-26] MEDS: QUETIAPINE 200 MG TABLET PO SCH (20:20)
[2016-06-26] MEDS: TAMSULOSIN 0.4 MG CAPSULE PO SCH (20:20)
[2016-06-26] MEDS: LORAZEPAM 1 MG TABLET PO SCH (20:20)
[2016-06-26] MEDS: ACETAMINOPHEN 325 MG TABLET PO PRN (20:25)
[2016-06-26 22:38] VITALS: BP 128/71; PULSE 71; RESP 20; TEMP 98.6; O2SAT 95
--- NOTE | 2016-06-27 01:45 | NUR ---
Status/Bedtime Pt. is pleasant and cooperative. Pt. just nods his head and smiles when asked orientation questions. Pt. is oriented to self and year. Pt. is confused. Pt. has trouble with retrieval of words and struggles to complete sentences. Pt. also complains of pain in lower back. Pt. back is rubbed and 650mg Tylenol given at 2024. Pt. rates pain 8/10. Pt. is resting with eyes closed at reassessment and the bed alarm activated. Pt. is asleep at 2230. Pt. is up once to toilet and change clothes d/t incontinence.
--- NOTE | 2016-06-27 02:15 | NUR ---
Chart Check 24 hour chart check completed
--- NOTE | 2016-06-27 07:20 | NUR ---
Summary Pt. is pleasant and cooperative. Pt. takes meds whole without difficulty. Pt. c/o back pain and tylenol 650mg po is given. Pt. has not had any delusional thoughts. No behavioral prn meds given. Pt. is resting in bed.
[2016-06-27 08:00] VITALS: BP 119/76; PULSE 72; PULSE 76; RESP 20; TEMP 98; O2SAT 93
[2016-06-27] MEDS: LISINOPRIL/HCTZ 10mg/12.5mg TABLET PO SCH (08:19)
[2016-06-27] MEDS: LINEZOLID 600 MG TABLET PO SCH ×2 (08:19→20:40)
[2016-06-27] MEDS: QUETIAPINE 100 MG TABLET PO SCH ×2 (08:19→13:27)
[2016-06-27] MEDS: ACETAMINOPHEN 325 MG TABLET PO PRN ×2 (08:25→17:42)
--- NOTE | 2016-06-27 15:42 | GENPN ---
[facility] Subjective Date DATE: 06/27/16 TIME: 09:55 Subjective/Severity of Illness Medications Current Medications Medications (Trade) Dose Ordered Sig/Tiff Start Time Stop Time Status Last Admin Dose Admin HCTZ/Lisinopril (Prinzide .5) 1 tab DAILY 06/16/16 09:00 06/27/16 08:19 1 TAB Lorazepam (Ativan) 1 mg HS 06/15/16 21:00 06/26/16 20:20 1 MG Quetiapine Fumarate (Seroquel) 100 mg 08,13 06/16/16 08:00 06/27/16 08:19 100 MG Quetiapine Fumarate (Seroquel) 200 mg HS 06/15/16 21:00 06/20/16 06:56 DC 06/19/16 19:44 200 MG Tamsulosin HCl (FLOMAX 0.4 mg) 0.4 mg HS 06/15/16 21:00 06/26/16 20:20 0.4 MG Miscellaneous Medication (May use PRN orders) 1 PRN PRN 06/15/16 15:30 Haloperidol (Haldol) 0.5 mg Q6H PRN 06/15/16 15:30 Lorazepam (Ativan) 0.5 mg Q6H PRN 06/15/16 15:30 Lorazepam (Ativan) 0.5 mg Q6H PRN 06/15/16 15:30 Haloperidol Lactate (Haldol 5 Mg/ml Inj) 0.5 mg Q6H PRN 06/15/16 15:30 Ciprofloxacin (Cipro) 500 mg Q12HR 06/18/16 21:00 06/20/16 16:22 DC 06/20/16 09:11 500 MG Quetiapine Fumarate (Seroquel) 300 mg HS 06/20/16 21:00 06/26/16 20:20 300 MG Amoxicillin (Amoxil) 875 mg Q12HR 06/20/16 21:00 06/21/16 15:03 DC 06/21/16 08:36 875 MG Linezolid (Zyvox) 600 mg Q12HR 06/21/16 21:00 06/28/16 09:01 06/27/16 08:19 600 MG Acetaminophen (Tylenol Regular Strength) 1-2 tabs Q5H PRN 06/26/16 20:30 06/27/16 08:25 650 MG Subjective Patient seen and chart reviewed. Case discussed with treatment team. Patient is sitting in dayroom with peers. He is pleasant through interview, reports his mood is good and denies any complaints. He later comes to visit at the nurses' station and is very pleasant. He continues to be more confused at times. Patient denies SI, HI, AVH, or adverse side effects related to medications. Per staff, patient has not had nay significant behavioral problems on the unit. Patient slept well overnight. Appetite is good. VSS. No psychotropic PRNs required in the past 24 hours. Time of Service: 07:45 Start Time: 10:40 Stop Time: 11:00 Care >50% of this visit spent in counseling/coordination care. [facility] Exam Vitals Vital Signs Date Time Temp Pulse Resp B/P Pulse Ox O2 Delivery O2 Flow Rate FiO2 06/27/16 08:00 98.0 72 20 119/76 93 Room Air Physical examination performed by the hospitalist. Height (Feet): 6 Height (Inches): 1.00 Mental Status Exam Muscle Strength/Tone: Normal Dressing: Casual Grooming: Fair Attitude: Cooperative Motor Activity: Normal Eye Contact: Good Speech: Normal Volume: Soft Rhythm: Mumbled Sensory: Alert Orientation: Disoriented to time, Disoriented to situation, Oriented to person Mood: Euthymic Affect: Congruent, Stable Rate of Thoughts: Delayed Thought Organization: Confused Associations: Illogical (at times) Abstract Reasoning: Poor abstract reasoning Thought Content: Normal Perception/Psychotic: Perception Normal Attention Span/Concentration: Distractable Language: Naming Impaired Fund of Knowledge: Poor fund of knowledge Memory: Poor-immediate, Poor-recent Suicidal Ideation: Denies Homicidal Ideation: Denies Insight: Limited Judgment: Limited Impulse Control: Fair Laboratory Tests Test 06/26/16 18:35 Urine Collection Type Voided-not cc-midstr Urine Color Yellow Urine Turbidity Clear Urine pH 6.5 Urine Specific [place] 1.010 Urine Protein Negative Urine Glucose (UA) Negative Urine Ketones Negative Urine Blood Negative Urine Nitrite Negative Urine Bilirubin Negative Urine Urobilinogen 0.2EU/DL Urine Leukocyte Esterase Negative Urinalysis Comment Microscopic not ind. Assessment and Plan (1) Schizophrenia Assessment: by history 06/17/16: Repeat UA to r/o UTI; if WNL may need additional evening PRN due to interrupted sleep, overnight episodic agitation. 06/18/16: Hospitalist plans to start antibiotics for UTI. Continue current psychotropic medications for the time being; monitor symptoms as UTI resolves. 06/19/16: continue meds, abx started for UTI. Could titrate HS Seroquel more if needed. 06/20/16: Increase Seroquel to 300mg PO q HS to target suspiciousness. Monitor for daytime sedation and orthostasis. 06/21/16: Continue current care; monitor response to medication changes. Patient is continuing to take Ciprofloxacin for UTI. 06/22/16: Continue current care; may need to address insomnia but patient is doing well overall otherwise. 06/23/16: Continue current care; [facility] planning to evaluate patient for placement and he is in agreement with this. Will attempt to repeat SLUMS if he will cooperate. 06/24/16: Continue current care. 06/26/16: Patient continues to be confused but pleasant and cooperative. Awaiting response from [facility]. Continue current care. 06/27/16: Awaiting response from [facility]. Continue current care. (2) Major neurocognitive disorder Assessment: moderate, with behavioral disturbance, vascular etiology probable (3) Urinary incontinence (4) BPH (benign prostatic hypertrophy) (5) CKD (chronic kidney disease), stage III (6) Normocytic anemia (7) HTN (hypertension) BRYANT MATHEW MD Jun 27, 2016 09:55
[2016-06-27 16:00] VITALS: BP 122/81; PULSE 62; RESP 18; TEMP 98; O2SAT 96
[2016-06-27] MEDS ORDERED: QUET200T PO (16:33)
--- NOTE | 2016-06-27 17:55 | NUR ---
SHIFT SUMMARY 7A-7P Pt has been without behaviors this shift. He takes medications as prescribed. He does not know where he is and is reminded often. He spends time in his room and in day room watching tv and talking with other patients. Pt has had episodes of back pain relieved with Tylenol prn. Pt is unable to tell me the date or day.
[2016-06-27 20:27] VITALS: BP 138/74; PULSE 69; RESP 18; TEMP 97.5; O2SAT 96
[2016-06-27] MEDS: TAMSULOSIN 0.4 MG CAPSULE PO SCH (20:40)
[2016-06-27] MEDS: LORAZEPAM 1 MG TABLET PO SCH (20:40)
[2016-06-27] MEDS: QUETIAPINE 200 MG TABLET PO SCH (20:40)
--- NOTE | 2016-06-27 22:51 | NUR ---
status pt sitting in room when this nurse assumes cares. pleasant and cooperative. pt has mumbled speech and is difficult to understand. compliant with hs medication.
--- NOTE | 2016-06-28 06:19 | NUR ---
SHIFT SUMMARY PT IS ORIENTED TO SELF. PT WAS INCONTINENT OF BLADDER AND WAS IN DECKER PACING ABOUT 0330. IT IS NOTED THAT PT HAS STRIPPED THE BED AND WHEN ASKED IF HE WOULD LIKE IT REMADE HE INSPECTS EACH PIECE OF BEDDING BEFORE AGREEING TO ALLOW BED TO BE MADE. PT SITS IN DAY ROM FOR ABOUT 45 MIN AFTER NEW BEDDING IS PUT ON THE BED AND THEN GOES TO BED. PT HAS STAYED IN BED THE REST OF THE SHIFT. PT HAS HAD NO BEHAVIORS AND HAS HAD NO PRN MEDICATION GIVEN TO HIM FOR THIS SHIFT. WILL CONTINUE TO MONITOR PT TILL END OF SHIFT REPORT.
[2016-06-28 08:00] VITALS: BP 129/65; PULSE 76; RESP 16; TEMP 98.7; O2SAT 94
[2016-06-28] MEDS: QUETIAPINE 100 MG TABLET PO SCH ×3 (08:00→12:02)
[2016-06-28] MEDS ORDERED: ACET-2321 PO (08:19)
[2016-06-28] MEDS: LISINOPRIL/HCTZ 10mg/12.5mg TABLET PO SCH ×2 (08:52→09:00)
[2016-06-28] MEDS: LINEZOLID 600 MG TABLET PO SCH ×2 (08:52→09:00)
--- NOTE | 2016-06-28 09:00 | NUR ---
SLEEP 6.5 Hours Pt went to bed at 2145 last night and awoke at 0730. Pt slept a total of 6.50 hours as documented on the 15 minute observation forms.
--- NOTE | 2016-06-28 09:44 | NUR ---
KENO WRITER / RUNNER - DISCHARGE PLANNING SW called [facility], [facility] and [facility] to determine whether they would take this patient after D/C today. Pt has a court hearing with his DCF CM Per Hanna to determine guardianship. After court hearing pt will admit to one of the 3 facilities. Right now, plan will be [facility] with setting MH intake with [facility]. Per knows that plan and she will relay information to pt after court.
--- NOTE | 2016-06-28 11:30 | NUR ---
STATUS Pt was cooperative with assessment. Pt has not been verbally or physically aggressive so far this shift and ate 100% of breakfast. Pt did refuse his morning medications and then agreed to take them, the medications were later found in the toilet in his room. Pt has been compliant with his medications up to this point. Pt has had no complaints of pain or discomfort and is currently in his room resting.
--- NOTE | 2016-06-28 12:27 | GENPN ---
[facility] Subjective Date DATE: 06/28/16 TIME: 12:22 Subjective/Severity of Illness Medications Current Medications Medications (Trade) Dose Ordered Sig/Tiff Start Time Stop Time Status Last Admin Dose Admin HCTZ/Lisinopril (Prinzide .5) 1 tab DAILY 06/16/16 09:00 06/27/16 08:19 1 TAB Lorazepam (Ativan) 1 mg HS 06/15/16 21:00 06/27/16 20:40 1 MG Quetiapine Fumarate (Seroquel) 100 mg 08,13 06/16/16 08:00 06/27/16 13:27 100 MG Quetiapine Fumarate (Seroquel) 200 mg HS 06/15/16 21:00 06/20/16 06:56 DC 06/19/16 19:44 200 MG Tamsulosin HCl (FLOMAX 0.4 mg) 0.4 mg HS 06/15/16 21:00 06/27/16 20:40 0.4 MG Miscellaneous Medication (May use PRN orders) 1 PRN PRN 06/15/16 15:30 Haloperidol (Haldol) 0.5 mg Q6H PRN 06/15/16 15:30 Lorazepam (Ativan) 0.5 mg Q6H PRN 06/15/16 15:30 Lorazepam (Ativan) 0.5 mg Q6H PRN 06/15/16 15:30 Haloperidol Lactate (Haldol 5 Mg/ml Inj) 0.5 mg Q6H PRN 06/15/16 15:30 Ciprofloxacin (Cipro) 500 mg Q12HR 06/18/16 21:00 06/20/16 16:22 DC 06/20/16 09:11 500 MG Quetiapine Fumarate (Seroquel) 300 mg HS 06/20/16 21:00 06/27/16 20:40 300 MG Amoxicillin (Amoxil) 875 mg Q12HR 06/20/16 21:00 06/21/16 15:03 DC 06/21/16 08:36 875 MG Linezolid (Zyvox) 600 mg Q12HR 06/21/16 21:00 06/28/16 09:01 DC 06/27/16 20:40 600 MG Acetaminophen (Tylenol Regular Strength) 1-2 tabs Q5H PRN 06/26/16 20:30 06/27/16 17:42 650 MG Subjective Patient seen and chart reviewed. Case discussed with treatment team. Patient was walking on the hallway and packed for discharge to court for guardianship hearing. He continues to exhibit some non-compliance tendency at times. Otherwise no behavioral problem noted Patient denies SI, HI, AVH, or adverse side effects related to medications. Per staff, patient has not had nay significant behavioral problems on the unit. Patient slept well overnight. Appetite is good. VSS. No psychotropic PRNs required in the past 24 hours. Time of Service: 12:00 Start Time: 12:00 Stop Time: 12:15 Care >50% of this visit spent in counseling/coordination care. [facility] Exam Vitals Vital Signs Date Time Temp Pulse Resp B/P Pulse Ox O2 Delivery O2 Flow Rate FiO2 06/28/16 08:00 98.7 76 16 129/65 94 Room Air Physical examination performed by the hospitalist. Height (Feet): 6 Height (Inches): 1.00 Mental Status Exam Muscle Strength/Tone: Normal Dressing: Casual Grooming: Fair Attitude: Cooperative Motor Activity: Normal Eye Contact: Fair Speech: Normal Volume: Soft Rhythm: Appropriate Rhythm Sensory: Alert Orientation: Oriented to person, Oriented to time Mood: Neutral Affect: Stable Rate of Thoughts: Appropriate Rate Thought Organization: Disorganized (at times) Associations: Illogical (at times) Abstract Reasoning: Impaired, concrete Thought Content: Delusions (at times) Perception/Psychotic: Psychotic (at times) Attention Span/Concentration: Normal Language: Naming Impaired Fund of Knowledge: Poor fund of knowledge Memory: Poor-immediate Suicidal Ideation: None Homicidal Ideation: None Insight: Poor Judgment: Poor Impulse Control: Poor Assessment and Plan (1) Schizophrenia Assessment: by history 06/17/16: Repeat UA to r/o UTI; if WNL may need additional evening PRN due to interrupted sleep, overnight episodic agitation. 06/18/16: Hospitalist plans to start antibiotics for UTI. Continue current psychotropic medications for the time being; monitor symptoms as UTI resolves. 06/19/16: continue meds, abx started for UTI. Could titrate HS Seroquel more if needed. 06/20/16: Increase Seroquel to 300mg PO q HS to target suspiciousness. Monitor for daytime sedation and orthostasis. 06/21/16: Continue current care; monitor response to medication changes. Patient is continuing to take Ciprofloxacin for UTI. 06/22/16: Continue current care; may need to address insomnia but patient is doing well overall otherwise. 06/23/16: Continue current care; [facility] planning to evaluate patient for placement and he is in agreement with this. Will attempt to repeat SLUMS if he will cooperate. 06/24/16: Continue current care. 06/26/16: Patient continues to be confused but pleasant and cooperative. Awaiting response from [facility]. Continue current care. 06/27/16: Awaiting response from [facility]. Continue current care. 06/28/16: Patient to discharge to Court for guardianship hearing and will be transferred to [facility] after court. He will require 24 hours supervision. (2) Major neurocognitive disorder Assessment: moderate, with behavioral disturbance, vascular etiology probable (3) Urinary incontinence (4) BPH (benign prostatic hypertrophy) (5) CKD (chronic kidney disease), stage III (6) Normocytic anemia (7) HTN (hypertension) ELLIOT GRANGER MD June 28, 2016 12:25
--- NOTE | 2016-06-28 12:37 | NUR ---
DISMISSAL Pt was dismissed from the [facility] unit at 1230 today. Pt left the unit in stable condition with all of his belongings. Pt was transported by secure transport and 2 [facility] staff to the transport vehicle. Pt will be transported to [facility].
--- NOTE | 2016-06-29 16:19 | NUR ---
ROBERT JONES HAS NO CONTACT INFORMATION FOR PT. PT CONTACT LISTED HAS NOT BEEN IN CONTACT WITH PT. CM UNDERSTANDS THAT PT WAS D/C TO A [facility] AND THAT PT D/C WORKER IS WORKING ON FINDING APPROPRIATE PLACEMENT FOR PT.
--- NOTE | 2016-07-01 12:34 | DSPDOC ---
General Date Date DATE: 07/01/16 TIME: 12:32 Attending Physician Bryant Clark MD Admitting Physician Bryant Clark MD Consulting Physician Ayden Roa MD Admitting Diagnosis schizophrenia Discharge Diagnosis 1. Schizophrenia 2. Major Neurocognitive disorder possibly due to the former History of Present Illness HPI by Dr. Clark: Patient is a 71-year-old male with a history of schizophrenia as well as recently diagnosed major neurocognitive disorder. Patient was discharged from [facility] on 06/15/16 to participate in a court hearing for guardianship. That court date was postponed for ~2 weeks. Patient was homeless prior to most recent admission and would not be successful in providing for self or managing his medications if he were to return to this setting. DOREEN Islas recommended 24-hour supervision and assistance with medication management, finances and transportation. There is no other acceptable and safe discharge plan at this time as patient has not yet been assigned a guardian. Patient is exhibiting some paranoia, particularly in regards to belongings, as well as mood lability though he is significant improved from previous admission. Past psych history: Patient has a history of schizophrenia but was not receiving psychiatric care prior to his most recent admission to [facility]. Psychosis: paranoia Dementia: memory impairment, other (Mood lability, poor impulse control) Anxiety: worries Hospital Course The patient was re-admitted to the [facility] unit on 06/16/[address] was postponed. He had earlier presented on 06/01/16 after he was dropped by the police. He was exhibiting disorganized speech, paranoia and self-care failure at that time. He stabilized in the hospital and had to go to court for guardianship hearing on June 16. Patient returned back to the hospital after the hearing was postponed. Upon presentation, the patient was placed on (suicide , homicide) precautions Based on the diagnostic interview and the patient was diagnosed with Schizophrenia and Major Neurocognitive disorder. The patient did report some symptoms in the past consistent with the diagnosis. The patient was re- started on Seroquel. During the hospitalization, the patient intermittently participated in unit activities, did not have self-harming behavior or aggressive outbursts. Doreen/ [facility] evaluation had determined that patient needed 24 hours supervision. Patient continued to exhibit some paranoia but his symptoms was more improved than on presentation. He had a guardianship hearing on Jun 28 2016 and will transfer to [facility] after the hearing. Prior to his discharge, patient denied any suicide or homicide ideation. 06/15/16 Agree with admission to [facility]. CKD stage III - Baseline Cr 2-2.5. Cont. Flomax. Labs last checked on 06/13 - cr 2.1. HTN - Lisinopril/HCTZ 12/09.5 - may consider increasing back up to 20/25 mg. Norvasc causes pedal edema but could certainly try low-dose if BP increases. Schizophrenia/dementia - per attending. Medically stable. 06/18/[address] Clark regarding your analysis results and increased agitation. She was recently treated for urine culture positive for Morganella Morganii and Enterococ Faecalis. He completed 7 days of Cipro coverage. Will place patient back on BID Cipro and wait for urine culture results Will recheck BMP tomorrow to follow renal function and electrolytes. Continue to monitor blood pressure, continue on Prinzide 12/09.5 Continued psychiatric management as per Dr. Clark's recommendation 06/20/16- Mood/cognition remains at baseline. Will need guardianship, placement. Chart reviewed- he does have VSE on urine cx- Cipro will not cover. Do not want to use Zyvox- multiple severe interactions with psych meds. Try to avoid Vanco given IV dosing. Will try some Amoxil- recommend recheck UA after 7 days of treatment. Will repeat CBC in AM. Continues supportive care. Await placement. 06/21/16 Enterococcus UTI - only sensitive to Zyvox and Vanco. Amoxil was started on 06/20 - monitor closely and recheck UA around 06/27/16. Checked interactions between Zyvox, seroquel and haldol - no interactions noted. Will start Zyvox 600 mg BID x 7 days. CBC done this am - WBC normal; hgb 13.3. Will check BMP on blood in lab (if able ) to f/u on CKD and recent Cipro use. Psych notes reviewed - Seroquel HS dose increased to 300 mg. 06/24/16 Continue Zyvox for enterococcus UTI. Would prefer to recheck BMP prior to discharge. It's possible that he will be discharged in the next day or 2. Will order BMP for tomorrow morning, knowing that the patient may refuse. Psychiatric progress notes were reviewed. Discussed with Dr. Clark. 06/26/16- Pt. to stop Zyvox on 06/28/16. Chronic incontinence. Placement pending- involuntary. BP fairly well controlled. Continue Lisinopril-HCTZ. Pt. has been refusing labs. Problems: Code Status Full Code, unverified Home Meds Active Scripts Acetaminophen (Tylenol) 325 Mg Tablet, 325-650 MG PO Q5H Y for DISCOMFORT for 30 Days, TAB Prov:MADHAVI TOLLIVER EMERGENCY ROOM ORDERLY 06/28/16 Quetiapine Fumarate (Seroquel) 200 Mg Tablet, 300 MG PO HS for Agitation for 30 Days, #45 TAB Prov:BRYANT CLARK MD 06/27/16 Quetiapine Fumarate (Quetiapine Fumarate) 100 Mg Tablet, 100 MG PO 08,13 for Agitation for 30 Days, #60 TAB Prov:BRYANT CLARK MD 06/14/16 Lorazepam (Ativan) 1 Mg Tablet, 1 MG PO HS for Insomnia for 30 Days, #30 TAB Prov:BRYANT CLARK MD 06/14/16 Lisinopril/Hydrochlorothiazide (Lisinopril-Hctz 10-12.5 mg Tab) 1 Each Tablet, 1 TAB PO DAILY, #30 TAB Prov:MADHAVI TOLLIVER APRN 06/14/16 Tamsulosin HCl (Tamsulosin HCl) 0.4 Mg Cap.er.24h, 0.4 MG PO HS, #30 CAP Prov:MADHAVI TOLLIVER APRN 06/14/16 Discontinued Scripts Quetiapine Fumarate (Seroquel) 200 Mg Tablet, 200 MG PO HS for Agitation for 30 Days, #30 TAB Prov:BRYANT CLARK MD 06/14/16 Face to Face Encounter I met with patient on the day of dismissal and discussed follow up appointments , medications, and safety plan. ELLIOT GRANGER MD July 01, 2016 12:34
== END 2016-06-28 12:30 | disposition home or self-care (01) | DRG 885 ==
LOC: ED 12:43 → GEN 13:50
PROVIDERS: ADMIT Psychiatry & Neurology Psychiatry; ATTEND Psychiatry & Neurology Psychiatry
DX: F20.9 Schizophrenia, unspecified (principal); F03.91 Unspecified dementia, unspecified severity, with behavioral disturbance; I12.9 Hypertensive chronic kidney disease with stage 1 through stage 4 chronic kidney disease, or unspecified chronic kidney disease; N18.3 Chronic kidney disease, stage 3 (moderate); D64.9 Anemia, unspecified; R32 Unspecified urinary incontinence; N40.0 Benign prostatic hyperplasia without lower urinary tract symptoms; R33.9 Retention of urine, unspecified; Z87.891 Personal history of nicotine dependence
CPT/HCPCS: 36416; 81001; 81003; 85025; 87077; 87086; 87186